=== PATIENT | female | born 1965 | race Caucasian/White ===

== ENCOUNTER 2017-08-03 11:34 | Inpatient (IN) | payer BC, OTHER ==
--- NOTE | 2017-08-03 11:55 | EDM.PDOC ---
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 She contacted her oncologist who expressed some concern about her heart being on the biologic. Review of Systems: As per history of present illness and below otherwise all systems reviewed and negative. Past medical history: As per history of present illness and as reviewed below otherwise noncontributory. Surgical history: As per history of present illness and as reviewed below otherwise noncontributory. Social history: No reported history of drug or alcohol abuse. Family history: As per history of present illness and as reviewed below otherwise noncontributory. Physical exam: Alert and oriented female speaking in full sentences although she is quite hoarse. HEENT: Atraumatic, normocehpalic, pupils reactive, negative for conjunctival pallor or scleral icterus, mucous membranes moist, throat clear, neck supple, nontender, trachea midline. Nonproductive cough Lungs: Clear to auscultation, breath sounds equal bilaterally, chest non tender. Shallow breath sounds Heart: S1S2, regular, negative for clicks, rubs, or JVD. Abdomen: Soft, nondistended, nontender. Negative for masses or hepatossplenmegaly. Negative for costovertebral tenderness. Pelvis: Stable nontender. 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: Deferred. Rectal: Deferred Extremities: Atraumatic, negative for cords or calf pain. Neurovascular unremarkable. Neuro: Awake, alert, oriented. Cranial nerves II through XII unremarkable. Cerebellum unremarkable. Motor and sensory unremarkable throughout. Exam nonfocal. Patient's oncologist has been notified of patient admission. Diagnostics: [CBC CMP d-dimer and EKG chest x-ray] Therapeutics: [] Impression: [#1 pneumonia] Plan: [Admit as inpatient on telemetry] Definitive disposition and diagnosis as appropriate pending reevaluation and review of above. Onset: Gradual Duration: Day(s): (3) Location: Reports: Chest Severity: Moderate Improves with: Reports: None Worsens with: Reports: None Associated Symptoms: Reports: Cough, Fever/Chills - Related Data Allergies Allergy/AdvReac Type Severity Reaction Status Date / Time hydrocodone Allergy Itching Verified 08/03/17 11:55 Home Meds: Home Meds buPROPion HCl [Wellbutrin Xl] 1 tab PO DAILY 12/28/15 [History] lamoTRIgine 1 tab PO DAILY 12/28/15 [History] Past Medical History HEENT History: Reports: Allergic Rhinitis Other HEENT History: wears glasses Cardiovascular History: Reports: None Respiratory History: Reports: None, Other (See Below) Gastrointestinal History: Reports: None 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: Reports: None 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: Musculoskeletal History: Reports: Fracture Other Musculoskeletal History: hx of fx right foot and ankle Neurological History: Reports: Other (See Below) Psychiatric History: Reports: Depression Endocrine/Metabolic History: Reports: None Hematologic History: Reports: None Immunologic History: Reports: None Oncologic (Cancer) History: Reports: Malignant Melanoma Other Oncologic History: on face, no treatment after removal Dermatologic History: Reports: None - Past Surgical History GI Surgical History: Reports: Hernia, Abdominal Musculoskeletal Surgical History: Reports: ORIF, Other (See Below) Social & Family History - Family History Family Medical History: Noncontributory - Tobacco Use Smoking Status *Q: Current Every Day Smoker (minimal smoking at present time (3- 4 cigarettes per day)) Years of Tobacco use: 40 Packs/Tins Daily: 0.5 Second Hand Smoke Exposure: No - Caffeine Use Caffeine Use: Reports: Coffee Other Caffeine Use: 3 cups per day - Recreational Drug Use Recreational Drug Use: No Drug Use in Last 12 Months: No ED ROS ENT - Review of Systems Review Of Systems: ROS reveals no pertinent complaints other than HPI. ED EXAM, ENT - Physical Exam Exam: See Below (see dictation) EKG INTERPRETATION EKG Date: 08/03/17 Rhythm: NSR Comparison: NA - No Prior EKG Course - Vital Signs Last Recorded V/S: Last Vital Signs Temp 37.1 C 08/03/17 14:26 Pulse 108 H 08/03/17 14:26 Resp 20 08/03/17 14:26 BP 115/71 08/03/17 14:26 Pulse Ox 99 08/03/17 14:26 - Orders/Labs/Meds Orders: Active Orders 24 hr Category Date Time Status EKG Documentation Completion [RC] STAT Care 08/03/17 11:56 Active RT Aerosol Therapy [RC] ASDIRECTED Care 08/03/17 12:51 Active Ang Chest [CT] Stat Exams 08/03/17 13:04 Taken Chest 2V [CR] Stat Exams 08/03/17 11:57 Taken CULTURE BLOOD [BC] Stat Lab 08/03/17 13:31 Received CULTURE BLOOD [BC] Stat Lab 08/03/17 13:41 Results cefTRIAXone [Rocephin in Dextrose,Iso-Osm 2 GM/50 ML] 2 Med 08/03/17 14:17 Active gm Premix Bag 1 bag IV ONETIME Blood Culture x2 Reflex Set [OM.PC] Stat Oth 08/03/17 13:05 Ordered Medication Orders Ceftriaxone Sodium/Dextrose 2 (gm/ Premix) 50 mls @ 100 mls/hr IV ONETIME ONE Stop: 08/03/17 14:46 Labs: Laboratory Tests 08/03/17 08/03/17 08/03/17 Range/Units 12:08 12:08 12:08 WBC 16.87 H (4.0-11.0) K/uL RBC 4.59 (4.30-5.90) M/uL Hgb 13.1 (12.0-16.0) g/dL Hct 38.8 (36.0-46.0) % MCV 84.5 (80.0-98.0) fL MCH 28.5 (27.0-32.0) pg MCHC 33.8 (31.0-37.0) g/dL RDW Std Deviation 44.7 (28.0-62.0) fl RDW Coeff of Breanna 15 (11.0-15.0) % Plt Count 260 (150-400) K/uL MPV 8.80 (7.40-12.00) fL Add Manual Diff YES Neutrophils % (Manual) 64 (48.0-80.0) % Band Neutrophils % 20 % Lymphocytes % (Manual) 7 L (16.0-40.0) % Monocytes % (Manual) 6 (0.0-15.0) % Eosinophils % (Manual) 2 (0.0-7.0) % Basophils % (Manual) 1 (0.0-1.5) % Nucleated RBC % 0.0 /100WBC Absolute Seg Neuts 10.8 H (1.4-5.7) Band Neutrophils # 3.4 Lymphocytes # (Manual) 1.2 (0.6-2.4) Monocytes # (Manual) 1.0 H (0.0-0.8) Eosinophils # (Manual) 0.3 (0.0-0.7) Basophils # (Manual) 0.2 H (0.0-0.1) Nucleated RBCs # 0 K/uL D-Dimer, Quantitative (0.0-0.52) mg/LFEU Sodium 136 (136-145) mmol/L Potassium 3.6 (3.5-5.1) mmol/L Chloride 103 (98-107) mmol/L Carbon Dioxide 22.1 (21.0-32.0) mmol/L BUN 11 (7.0-18.0) mg/dL Creatinine 0.7 (0.6-1.0) mg/dL Est Cr Clr Drug Dosing 73.51 mL/min Estimated GFR (MDRD) > 60.0 ml/min Glucose 103 (74-106) mg/dL Calcium 9.2 (8.5-10.1) mg/dL Total Bilirubin 0.2 (0.2-1.0) mg/dL AST 19 (15-37) IU/L ALT 42 (14-63) IU/L Alkaline Phosphatase 98 (46-116) U/L Troponin I < 0.050 (0.000-0.056) ng/mL B-Natriuretic Peptide < 15 (<100) PG/ML Total Protein 7.7 (6.4-8.2) g/dL Albumin 3.5 (3.4-5.0) g/dL Globulin 4.2 H (2.0-3.5) g/dL Albumin/Globulin Ratio 0.8 L (1.3-2.8) 08/03/17 Range/Units 12:08 WBC (4.0-11.0) K/uL RBC (4.30-5.90) M/uL Hgb (12.0-16.0) g/dL Hct (36.0-46.0) % MCV (80.0-98.0) fL MCH (27.0-32.0) pg MCHC (31.0-37.0) g/dL RDW Std Deviation (28.0-62.0) fl RDW Coeff of Breanna (11.0-15.0) % Plt Count (150-400) K/uL MPV (7.40-12.00) fL Add Manual Diff Neutrophils % (Manual) (48.0-80.0) % Band Neutrophils % % Lymphocytes % (Manual) (16.0-40.0) % Monocytes % (Manual) (0.0-15.0) % Eosinophils % (Manual) (0.0-7.0) % Basophils % (Manual) (0.0-1.5) % Nucleated RBC % /100WBC Absolute Seg Neuts (1.4-5.7) Band Neutrophils # Lymphocytes # (Manual) (0.6-2.4) Monocytes # (Manual) (0.0-0.8) Eosinophils # (Manual) (0.0-0.7) Basophils # (Manual) (0.0-0.1) Nucleated RBCs # K/uL D-Dimer, Quantitative 0.78 H (0.0-0.52) mg/LFEU Sodium (136-145) mmol/L Potassium (3.5-5.1) mmol/L Chloride (98-107) mmol/L Carbon Dioxide (21.0-32.0) mmol/L BUN (7.0-18.0) mg/dL Creatinine (0.6-1.0) mg/dL Est Cr Clr Drug Dosing mL/min Estimated GFR (MDRD) ml/min Glucose (74-106) mg/dL Calcium (8.5-10.1) mg/dL Total Bilirubin (0.2-1.0) mg/dL AST (15-37) IU/L ALT (14-63) IU/L Alkaline Phosphatase (46-116) U/L Troponin I (0.000-0.056) ng/mL B-Natriuretic Peptide (<100) PG/ML Total Protein (6.4-8.2) g/dL Albumin (3.4-5.0) g/dL Globulin (2.0-3.5) g/dL Albumin/Globulin Ratio (1.3-2.8) Meds: Medications Generic Name Dose Route Start Last Admin Trade Name Freq PRN Reason Stop Dose Admin Ceftriaxone Sodium/Dextrose 2 50 mls @ 100 mls/hr 08/03/17 14:17 gm/ Premix IV 08/03/17 14:46 ONETIME ONE Discontinued Medications Generic Name Dose Route Start Last Admin Trade Name Freq PRN Reason Stop Dose Admin Albuterol/Ipratropium 3 ml 08/03/17 12:51 08/03/17 14:07 Duoneb 3.0-0.5 Mg/3 Ml NEB 08/03/17 12:52 3 ml ONETIME ONE Administration Azithromycin 500 mg 08/03/17 14:18 Zithromax PO 08/03/17 14:19 ONETIME ONE Iopamidol 50 ml 08/03/17 14:10 08/03/17 14:10 Isovue-370 (76%) IV 08/03/17 14:11 50 ml ONETIME ONE Administration Departure - Departure Time of Disposition: 15:00 Disposition: Home, Self-Care 01 Condition: Good Clinical Impression: Pneumonia Qualifiers: Pneumonia type: due to unspecified organism Laterality: unspecified laterality Lung location: lower lobe of lung Qualified Code(s): J18.1 - Lobar pneumonia, unspecified organism - Discharge Information Referrals: Annie Qureshi, [employer]OCIATE [Primary Care Provider] - - My Orders Last 24 Hours: My Active Orders 08/03/17 11:56 EKG Documentation Completion [RC] STAT 08/03/17 11:57 Chest 2V [CR] Stat 08/03/17 12:51 RT Aerosol Therapy [RC] ASDIRECTED 08/03/17 13:04 Ang Chest [CT] Stat 08/03/17 13:05 Blood Culture x2 Reflex Set [OM.PC] Stat 08/03/17 13:31 CULTURE BLOOD [BC] Stat 08/03/17 13:41 CULTURE BLOOD [BC] Stat 08/03/17 14:17 cefTRIAXone [Rocephin in Dextrose,Iso-Osm 2 GM/50 ML] 2 gm Premix Bag 1 bag IV ONETIME - Assessment/Plan Last 24 Hours: My Active Orders 08/03/17 11:56 EKG Documentation Completion [RC] STAT 08/03/17 11:57 Chest 2V [CR] Stat 08/03/17 12:51 RT Aerosol Therapy [RC] ASDIRECTED 08/03/17 13:04 Ang Chest [CT] Stat 08/03/17 13:05 Blood Culture x2 Reflex Set [OM.PC] Stat 08/03/17 13:31 CULTURE BLOOD [BC] Stat 08/03/17 13:41 CULTURE BLOOD [BC] Stat 08/03/17 14:17 cefTRIAXone [Rocephin in Dextrose,Iso-Osm 2 GM/50 ML] 2 gm Premix Bag 1 bag IV ONETIME
[2017-08-03 12:48] LABS: CHLORIDE,CL 103 mmol/L (98-107); SODIUM,NA 136 mmol/L (136-145)
[2017-08-03] MEDS ORDERED: Albuterol/Ipratropium 3.0-0.5 MG/3 ML Neb Soln NEB ONE (12:51)
[2017-08-03] MEDS ORDERED: Iopamidol 755 MG/ML 50 ML Bottle IV ONE (14:10)
[2017-08-03] MEDS ORDERED: cefTRIAXone 2 GM in Premix Bag 1 BAG IV ONE (14:17)
[2017-08-03] MEDS ORDERED: Azithromycin 250 MG Tab PO ONE (14:18)
--- NOTE | 2017-08-03 15:02 | PCM.HP ---
H&P History of Present Illness - General Date of Service: 08/03/17 Admit Problem/Dx: Admission Diagnosis/Problem Admission Diagnosis/Problem Pneumonia Source of Information: Patient, Family History Limitations: Reports: No Limitations - History of Present Illness Initial Comments - Free Text/Narative: 52-year-old female presenting to emergency department with a chief complaint of sore throat and generalized weak starting 07/31/17 with past medical history of breast cancer on TCHP and Neulasta and depression. Patient states that on Saturday07/31/17 she began having sore throat and generalized fatigue. States that she went to bed and has been only up since to go to the bathroom. She does live alone but has a son in town that checks on her. She has had associated chills, fever, and diaphoresis. She states that her maximum temperature was 100. Yesterday she did call her oncologist Desiree Tobias, who advised her to go to a walk-in clinic for further assessment. Patient states the walk-in clinic was closed and so came into the emergency department today for further evaluation. She also reports a dry cough and intermittent diarrhea. She denies any nausea, vomiting, headache, chest pain , palpitations, shortness of breath, dysuria, leg pain, syncopal episodes, or focal neurologic deficits. Patient was diagnosed with breast cancer of the right breast on April 26, 2017. She had a lumpectomy in May of 2017 and states that she received her first chemotherapy, TCHP, 07/22/17. She also reports that she was given Neulasta after the chemotherapy. In general she has been feeling well up until this last Saturday when her symptoms began. Emergency department: Leukocytosis of 16.8 K, elevated d-dimer 0.78 with negative CTA for PE, findings of multifocal pneumonia on CT as well as left lower lobe pneumonia on chest x-ray. Troponin and BNP unremarkable. Blood cultures and sputum cultures were obtained. She was given 1 DuoNeb and started on Rocephin and azithromycin in the emergency department. Patient admitted community acquired pneumonia. - Related Data Allergies/Adverse Reactions: Allergies Allergy/AdvReac Type Severity Reaction Status Date / Time hydrocodone Allergy Itching Verified 08/03/17 11:55 Home Medications: Home Meds HYDROmorphone [Dilaudid] 2 mg PO Q4H PRN 08/03/17 [History] PARoxetine HCl [Paxil] 10 mg PO DAILY 08/03/17 [History] buPROPion [buPROPion XL] 300 mg PO DAILY 08/03/17 [History] busPIRone HCl [Buspirone HCl] 5 mg PO DAILY 08/03/17 [History] lamoTRIgine [Lamotrigine] 100 mg PO DAILY 08/03/17 [History] Past Medical History HEENT History: Reports: Allergic Rhinitis Other HEENT History: wears glasses Cardiovascular History: Reports: None Respiratory History: Reports: None, Other (See Below) Gastrointestinal History: Reports: None 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: Reports: 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: Musculoskeletal History: Reports: Fracture Other Musculoskeletal History: hx of fx right foot and ankle Neurological History: Reports: Other (See Below) Psychiatric History: Reports: Depression Endocrine/Metabolic History: Reports: None Hematologic History: Reports: None Immunologic History: Reports: None Oncologic (Cancer) History: Reports: Malignant Melanoma Other Oncologic History: on face, no treatment after removal Dermatologic History: Reports: None - Past Surgical History GI Surgical History: Reports: Hernia, Abdominal Musculoskeletal Surgical History: Reports: ORIF, Other (See Below) Social & Family History - Family History Family Medical History: Noncontributory - Tobacco Use Smoking Status *Q: Current Every Day Smoker (minimal smoking at present time (3- 4 cigarettes per day)) Years of Tobacco use: 40 Packs/Tins Daily: 0.5 Second Hand Smoke Exposure: No - Caffeine Use Caffeine Use: Reports: Coffee Other Caffeine Use: 3 cups per day - Recreational Drug Use Recreational Drug Use: No Drug Use in Last 12 Months: No H&P Review of Systems - Review of Systems: Review Of Systems: See Below General: Reports: Fever, Chills, Weakness, Fatigue, Diaphoresis HEENT: Reports: Sinus Congestion, Sore Throat. Denies: Dysphasia, Headaches Cardiovascular: Denies: Chest Pain, Palpitations, Edema Gastrointestinal: Reports: Diarrhea. Denies: Abdominal Pain, Black Stool, Bloody Stool, Nausea, Vomiting 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: Denies: Dysuria, Hematuria Musculoskeletal: Denies: Neck Pain, Leg Pain Skin: Denies: Cyanosis Psychiatric: Reports: Depression. Denies: Confusion Neurological: Denies: Confusion, Dizziness, Headache Hematologic/Lymphatic: Denies: Anemia Immunologic: Denies: Anaphylaxis Exam - Exam Exam: See Below - Vital Signs Vital Signs: Last Vital Signs Temp 98.7 F 08/03/17 14:26 Pulse 96 08/03/17 14:55 Resp 20 08/03/17 14:55 BP 138/62 08/03/17 14:55 Pulse Ox 95 08/03/17 14:55 Weight: 89.4 kg - Exam Quality Assessment: DVT Prophylaxis General: Alert, Oriented, Cooperative HEENT: Conjunctiva Clear, EACs Clear, EOMI, Hearing Intact, Mucosa Moist & [place] , Nares Patent, Normal Nasal Septum, Posterior Pharynx Clear, PERRLA Neck: Supple, Trachea Midline, 2 Lungs: Normal Respiratory Effort, Crackles, Rales, Wheezing Cardiovascular: Regular Rate, Regular Rhythm, Normal S1, Systolic Murmur GI/Abdominal Exam: Normal Bowel Sounds, Soft, Non-Tender, No Organomegaly, No Distention (Female) Exam: Deferred Rectal (Female) Exam: Deferred Back Exam: Normal Inspection Extremities: Normal Inspection, Non-Tender, No Pedal Edema, Normal Capillary Refill Peripheral Pulses: 2+: Radial (L), Radial (R), Posterior Tibial (L), Posterior Tibial (R), Dorsalis Pedis (L), Dorsalis Pedis (R) Skin: Warm, Dry, Intact Neurological: Cranial Nerves Intact Neuro Extensive - Mental Status: Alert, Oriented x3, Normal Mood/Affect, Normal Cognition Neuro Extensive - Motor, Sensory, Reflexes: CN II-XII Intact Psychiatric: Alert, Normal Affect, Normal Mood - Patient Data Lab Results Last 24 hrs: Laboratory Results - last 24 hr 08/03/17 08/03/17 08/03/17 Range/Units 12:08 12:08 12:08 WBC 16.87 H (4.0-11.0) K/uL RBC 4.59 (4.30-5.90) M/uL Hgb 13.1 (12.0-16.0) g/dL Hct 38.8 (36.0-46.0) % MCV 84.5 (80.0-98.0) fL MCH 28.5 (27.0-32.0) pg MCHC 33.8 (31.0-37.0) g/dL RDW Std Deviation 44.7 (28.0-62.0) fl RDW Coeff of Breanna 15 (11.0-15.0) % Plt Count 260 (150-400) K/uL MPV 8.80 (7.40-12.00) fL Add Manual Diff YES Neutrophils % (Manual) 64 (48.0-80.0) % Band Neutrophils % 20 % Lymphocytes % (Manual) 7 L (16.0-40.0) % Monocytes % (Manual) 6 (0.0-15.0) % Eosinophils % (Manual) 2 (0.0-7.0) % Basophils % (Manual) 1 (0.0-1.5) % Nucleated RBC % 0.0 /100WBC Absolute Seg Neuts 10.8 H (1.4-5.7) Band Neutrophils # 3.4 Lymphocytes # (Manual) 1.2 (0.6-2.4) Monocytes # (Manual) 1.0 H (0.0-0.8) Eosinophils # (Manual) 0.3 (0.0-0.7) Basophils # (Manual) 0.2 H (0.0-0.1) Nucleated RBCs # 0 K/uL D-Dimer, Quantitative (0.0-0.52) mg/LFEU Sodium 136 (136-145) mmol/L Potassium 3.6 (3.5-5.1) mmol/L Chloride 103 (98-107) mmol/L Carbon Dioxide 22.1 (21.0-32.0) mmol/L BUN 11 (7.0-18.0) mg/dL Creatinine 0.7 (0.6-1.0) mg/dL Est Cr Clr Drug Dosing 73.51 mL/min Estimated GFR (MDRD) > 60.0 ml/min Glucose 103 (74-106) mg/dL Calcium 9.2 (8.5-10.1) mg/dL Total Bilirubin 0.2 (0.2-1.0) mg/dL AST 19 (15-37) IU/L ALT 42 (14-63) IU/L Alkaline Phosphatase 98 (46-116) U/L Troponin I < 0.050 (0.000-0.056) ng/mL B-Natriuretic Peptide < 15 (<100) PG/ML Total Protein 7.7 (6.4-8.2) g/dL Albumin 3.5 (3.4-5.0) g/dL Globulin 4.2 H (2.0-3.5) g/dL Albumin/Globulin Ratio 0.8 L (1.3-2.8) 08/03/17 Range/Units 12:08 WBC (4.0-11.0) K/uL RBC (4.30-5.90) M/uL Hgb (12.0-16.0) g/dL Hct (36.0-46.0) % MCV (80.0-98.0) fL MCH (27.0-32.0) pg MCHC (31.0-37.0) g/dL RDW Std Deviation (28.0-62.0) fl RDW Coeff of Breanna (11.0-15.0) % Plt Count (150-400) K/uL MPV (7.40-12.00) fL Add Manual Diff Neutrophils % (Manual) (48.0-80.0) % Band Neutrophils % % Lymphocytes % (Manual) (16.0-40.0) % Monocytes % (Manual) (0.0-15.0) % Eosinophils % (Manual) (0.0-7.0) % Basophils % (Manual) (0.0-1.5) % Nucleated RBC % /100WBC Absolute Seg Neuts (1.4-5.7) Band Neutrophils # Lymphocytes # (Manual) (0.6-2.4) Monocytes # (Manual) (0.0-0.8) Eosinophils # (Manual) (0.0-0.7) Basophils # (Manual) (0.0-0.1) Nucleated RBCs # K/uL D-Dimer, Quantitative 0.78 H (0.0-0.52) mg/LFEU Sodium (136-145) mmol/L Potassium (3.5-5.1) mmol/L Chloride (98-107) mmol/L Carbon Dioxide (21.0-32.0) mmol/L BUN (7.0-18.0) mg/dL Creatinine (0.6-1.0) mg/dL Est Cr Clr Drug Dosing mL/min Estimated GFR (MDRD) ml/min Glucose (74-106) mg/dL Calcium (8.5-10.1) mg/dL Total Bilirubin (0.2-1.0) mg/dL AST (15-37) IU/L ALT (14-63) IU/L Alkaline Phosphatase (46-116) U/L Troponin I (0.000-0.056) ng/mL B-Natriuretic Peptide (<100) PG/ML Total Protein (6.4-8.2) g/dL Albumin (3.4-5.0) g/dL Globulin (2.0-3.5) g/dL Albumin/Globulin Ratio (1.3-2.8) Result Diagrams: 08/03/17 12:08 08/03/17 12:08 [place] Results Last 24 hrs: Microbiology 08/03/17 13:41 Anaerobic Blood Culture - Final Blood - Venous *Q Meaningful Use (ADM) - VTE *Q VTE Criteria *Q: - Stroke *Q Stroke Criteria *Q: - AMI *Q AMI Criteria *Q: - Problem List (1) Community acquired bacterial pneumonia SNOMED Code(s): 976172926 ICD Code: J15.9 - UNSPECIFIED BACTERIAL PNEUMONIA Status: Acute Priority : High Current Visit: Yes (2) Depression SNOMED Code(s): 60664560 ICD Code: F32.9 - MAJOR DEPRESSIVE DISORDER, SINGLE EPISODE, UNSPECIFIED Status: Chronic Priority: Low Current Visit: Yes Qualifiers: Depression Type: unspecified Qualified Code(s): F32.9 - Major depressive disorder, single episode, unspecified (3) Breast cancer, right breast SNOMED Code(s): 236869383 ICD Code: C50.911 - MALIGNANT NEOPLASM OF UNSP SITE OF RIGHT FEMALE BREAST Status: Chronic Priority: Medium Current Visit: Yes Qualifiers: Breast location: unspecified site of breast Estrogen receptor status: positive Patient sex: female Qualified Code(s): C50.911 - Malignant neoplasm of unspecified site of right female breast; Z17.0 - Estrogen receptor positive status [ER+]; Z17.0 - Estrogen receptor positive status [ER+] (4) History of chemotherapy SNOMED Code(s): 581942099 ICD Code: Z92.21 - PERSONAL HISTORY OF ANTINEOPLASTIC CHEMOTHERAPY Status: Acute Priority: High Current Visit: Yes Problem List Initiated/Reviewed/Updated: Yes Orders Last 24hrs: Active Orders 24 hr Category Date Time Status Patient Status [ADT] Stat ADT 08/03/17 14:43 Active EKG Documentation Completion [RC] STAT Care 08/03/17 11:56 Active RT Aerosol Therapy [RC] ASDIRECTED Care 08/03/17 12:51 Active Telemetry Monitoring [Cardiac Monitoring] [RC] . Care 08/03/17 14:59 Active DIRECTED Ang Chest [CT] Stat Exams 08/03/17 13:04 Taken Chest 2V [CR] Stat Exams 08/03/17 11:57 Taken CULTURE BLOOD [BC] Stat Lab 08/03/17 13:31 Received CULTURE BLOOD [BC] Stat Lab 08/03/17 13:41 Results CULTURE SPUTUM + SMEAR [RM] Stat Lab 08/03/17 14:43 Ordered Blood Culture x2 Reflex Set [OM.PC] Stat Oth 08/03/17 13:05 Ordered Assessment/Plan Comment:: 52-year-old female admitted 08/03/17 for multifocal community acquired pneumonia with past medical history of breast cancer s/p lumpectomy on TCHP and Neulasta and depression. Community acquired pneumonia: Blood cultures and sputum cultures have been obtained. Patient will be continued on azithromycin and Rocephin. Will watch labs closely and monitor. Have also ordered duo nebs as patient appeared to be somewhat wheezy on exam. Bedside inspirometry. Breast cancer: On TCHP and Neulasta. Her first chemotherapy was 2 weeks ago 07/22. Will monitor closely and keep her oncologist Dr. Oneal in [place] advised of her status. She does have an appointment on Saturday but oncologist already knows that she is going to be hospitalized and is okay with her rescheduling. Depression: Currently stable continue home medications. VTE: Heparin, SCD Dispo: 2-4 days pending.
[2017-08-03] MEDS ORDERED: Albuterol/Ipratropium 3.0-0.5 MG/3 ML Neb Soln NEB PRN (16:10)
[2017-08-03] MEDS ORDERED: Ondansetron 4 MG Tab.DIS PO PRN (16:10)
[2017-08-03] MEDS ORDERED: Ondansetron 4 MG/2 ML SDV IVPUSH PRN (16:10)
[2017-08-03] MEDS ORDERED: Sodium Chloride 0.9% 1,000 ML IV SCH (16:15)
[2017-08-03] MEDS ORDERED: HYDROmorphone 2 MG Tab PO PRN (16:18)
[2017-08-03] MEDS: Heparin Sodium 5,000 Units/ML Vial SUBCUT SCH (16:39)
[2017-08-03] MEDS: Acetaminophen 325 MG Tab PO PRN (16:49)
[2017-08-03] MEDS ORDERED: Loperamide 2 MG Cap PO PRN (20:57)
[2017-08-03] MEDS: Morphine 2 MG/ML Syringe IVPUSH PRN (21:37)
[2017-08-04] MEDS: Lactated Ringers 1,000 ML IV SCH ×3 (00:52→23:29)
[2017-08-04] MEDS: Heparin Sodium 5,000 Units/ML Vial SUBCUT SCH ×2 (04:09→17:31)
[2017-08-04] MEDS: Acetaminophen 325 MG Tab PO PRN ×2 (04:09→14:32)
[2017-08-04 06:48] LABS: CHLORIDE,CL 103 mmol/L (98-107); SODIUM,NA 138 mmol/L (136-145)
--- NOTE | 2017-08-04 08:11 | PCM.PN ---
- General Info Date of Service: 08/04/17 Admission Dx/Problem (Free Text): Admission Diagnosis/Problem Admission Diagnosis/Problem Pneumonia Subjective Update: Feeling better other than a headache that started at around 3 am. No n/v, sob, chest pain, palpitations, fever or chills. Functional Status: Reports: Pain Controlled, Tolerating Diet, Ambulating, Urinating - Review of Systems General: Reports: Fatigue. Denies: Fever, Weakness, Malaise HEENT: Reports: Headaches. Denies: Dysphasia, Visual Changes Pulmonary: Reports: Cough. Denies: Shortness of Breath, Sputum, Hemoptysis Cardiovascular: Denies: Chest Pain, Palpitations, Edema Gastrointestinal: Denies: Abdominal Pain, Diarrhea, Nausea, Vomiting 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: Denies: Dysuria, Hematuria Musculoskeletal: Denies: Neck Pain, Leg Pain Skin: Denies: Cyanosis Neurological: Reports: Headache. Denies: Confusion, Dizziness Psychiatric: Denies: Confusion - Patient Data Vitals - Most Recent: Last Vital Signs Temp 98.3 F 08/04/17 04:35 Pulse 90 08/04/17 04:35 Resp 18 08/04/17 04:35 BP 146/67 H 08/04/17 04:35 Pulse Ox 94 L 08/04/17 04:35 Weight - Most Recent: 89.4 kg I&O - Last 24 Hours: Intake & Output 08/03/17 08/04/17 08/04/17 21:59 06:59 14:59 Intake Total Output Total Balance Lab Results Last 24 Hours: Laboratory Results - last 24 hr 08/04/17 08/04/17 Range/Units 06:10 06:10 WBC 13.33 H (4.0-11.0) K/uL RBC 4.06 L (4.30-5.90) M/uL Hgb 11.4 L (12.0-16.0) g/dL Hct 34.5 L (36.0-46.0) % MCV 85.0 (80.0-98.0) fL MCH 28.1 (27.0-32.0) pg MCHC 33.0 (31.0-37.0) g/dL RDW Std Deviation 44.8 (28.0-62.0) fl RDW Coeff of Breanna 14 (11.0-15.0) % Plt Count 249 (150-400) K/uL MPV 8.80 (7.40-12.00) fL Add Manual Diff YES Neutrophils % (Manual) 79 (48.0-80.0) % Band Neutrophils % 6 % Lymphocytes % (Manual) 10 L (16.0-40.0) % Monocytes % (Manual) 5 (0.0-15.0) % Nucleated RBC % 0.0 /100WBC Absolute Seg Neuts 10.5 H (1.4-5.7) Band Neutrophils # 0.8 Lymphocytes # (Manual) 1.3 (0.6-2.4) Monocytes # (Manual) 0.7 (0.0-0.8) Nucleated RBCs # 0 K/uL Sodium 138 (136-145) mmol/L Potassium 3.6 (3.5-5.1) mmol/L Chloride 103 (98-107) mmol/L Carbon Dioxide 23.2 (21.0-32.0) mmol/L BUN 13 (7.0-18.0) mg/dL Creatinine 0.6 (0.6-1.0) mg/dL Est Cr Clr Drug Dosing 85.76 mL/min Estimated GFR (MDRD) > 60.0 ml/min Glucose 106 (74-106) mg/dL Calcium 8.5 (8.5-10.1) mg/dL Phosphorus 3.8 (2.6-4.7) mg/dL Magnesium 1.5 (1.5-2.0) mg/dL Med Orders - Current: Current Medications Acetaminophen (Tylenol) 650 mg PO Q4H PRN PRN Reason: Pain (Mild 1-3)/fever Last Admin: 08/04/17 04:09 Dose: 650 mg Albuterol/Ipratropium (Duoneb 3.0-0.5 Mg/3 Ml) 3 ml NEB Q6HRRT PRN PRN Reason: Shortness Of Breath/wheezing Bupropion HCl (Wellbutrin Xl) 300 mg PO DAILY [facility] Heparin Sodium (Porcine) (Heparin Sodium) 5,000 units SUBCUT Q12H [facility] Last Admin: 08/04/17 04:09 Dose: 5,000 units Hydromorphone HCl (Dilaudid) 2 mg PO Q4H PRN PRN Reason: Pain Last Admin: 08/04/17 04:18 Dose: 2 mg Sodium Chloride (Normal Saline) 1,000 mls @ 125 mls/hr IV ASDIRECTED [facility] Last Admin: 08/03/17 16:43 Dose: 125 mls/hr Azithromycin 500 mg/ Sodium (Chloride) 250 mls @ 250 mls/hr IV Q24H [facility] Ceftriaxone Sodium/Dextrose 1 (gm/ Premix) 50 mls @ 100 mls/hr IV Q24H [facility] Lactated Ringer's (Ringers, Lactated) 1,000 mls @ 125 mls/hr IV ASDIRECTED [facility] Last Admin: 08/04/17 00:52 Dose: 125 mls/hr Lamotrigine (Lamotrigine) 100 mg PO DAILY [facility] Loperamide HCl (Imodium) 2 mg PO Q4H PRN PRN Reason: Diarrhea Last Admin: 08/03/17 21:37 Dose: 2 mg Morphine Sulfate (Morphine) 2 mg IVPUSH Q2H PRN PRN Reason: Pain (severe 7-10) Stop: 08/04/17 16:12 Last Admin: 08/03/17 21:37 Dose: 2 mg Ondansetron HCl (Zofran Odt) 4 mg PO Q4H PRN PRN Reason: nausea, able to take PO Ondansetron HCl (Zofran) 4 mg IVPUSH Q4H PRN PRN Reason: Nausea Paroxetine HCl (Paxil) 10 mg PO DAILY [facility] Discontinued Medications Albuterol/Ipratropium (Duoneb 3.0-0.5 Mg/3 Ml) 3 ml NEB ONETIME ONE Stop: 08/03/17 12:52 Last Admin: 08/03/17 14:07 Dose: 3 ml Azithromycin (Zithromax) 500 mg PO ONETIME ONE Stop: 08/03/17 14:19 Last Admin: 08/03/17 14:55 Dose: 500 mg Ceftriaxone Sodium/Dextrose 2 (gm/ Premix) 50 mls @ 100 mls/hr IV ONETIME ONE Stop: 08/03/17 14:46 Last Admin: 08/03/17 14:55 Dose: 100 mls/hr Iopamidol (Isovue-370 (76%)) 50 ml IV ONETIME ONE Stop: 08/03/17 14:11 Last Admin: 08/03/17 14:10 Dose: 50 ml - Exam Quality Assessment: DVT Prophylaxis General: Alert, Oriented, Cooperative, No Acute Distress HEENT: Pupils Equal, Pupils Reactive, EOMI, Mucous Membr. Moist/[place] Neck: Supple, Trachea Midline, No JVD Lungs: Normal Respiratory Effort, Decreased Breath Sounds, Crackles, Rales Cardiovascular: Regular Rate, Regular Rhythm, Murmurs GI/Abdominal Exam: Normal Bowel Sounds, Soft, Non-Tender, No Organomegaly, No Distention (Female) Exam: Deferred Back Exam: Normal Inspection Extremities: Normal Inspection, Non-Tender, No Pedal Edema, Normal Capillary Refill Peripheral Pulses: 2+: Radial (L), Radial (R), Posterior Tibial (L), Posterior Tibial (R), Dorsalis Pedis (L), Dorsalis Pedis (R) Skin: Warm, Dry, Intact Neurological: No New Focal Deficit Psy/Mental Status: Alert, Normal Affect, Normal Mood - Problem List & Annotations (1) Community acquired bacterial pneumonia SNOMED Code(s): 019247460 Code(s): J15.9 - UNSPECIFIED BACTERIAL PNEUMONIA Status: Acute Priority: High Current Visit: Yes (2) Depression SNOMED Code(s): 61504809 Code(s): F32.9 - MAJOR DEPRESSIVE DISORDER, SINGLE EPISODE, UNSPECIFIED Status: Chronic Priority: Low Current Visit: Yes Qualifiers: Depression Type: unspecified Qualified Code(s): F32.9 - Major depressive disorder, single episode, unspecified (3) Breast cancer, right breast SNOMED Code(s): 665187481 Code(s): C50.911 - MALIGNANT NEOPLASM OF UNSP SITE OF RIGHT FEMALE BREAST Status: Chronic Priority: Medium Current Visit: Yes Qualifiers: Breast location: unspecified site of breast Estrogen receptor status: positive Patient sex: female Qualified Code(s): C50.911 - Malignant neoplasm of unspecified site of right female breast; Z17.0 - Estrogen receptor positive status [ER+]; Z17.0 - Estrogen receptor positive status [ER+] (4) History of chemotherapy SNOMED Code(s): 244817402 Code(s): Z92.21 - PERSONAL HISTORY OF ANTINEOPLASTIC CHEMOTHERAPY Status: Acute Priority: High Current Visit: Yes - Problem List Review Problem List Initiated/Reviewed/Updated: Yes - My Orders Last 24 Hours: My Active Orders 08/03/17 16:10 Patient Status [ADT] Routine Up With Assistance [RC] ASDIRECTED VTE/DVT Education [RC] PER UNIT ROUTINE Vital Signs [RC] Q4H Acetaminophen [Tylenol] 650 mg PO Q4H PRN Albuterol/Ipratropium [DuoNeb 3.0-0.5 MG/3 ML] 3 ml NEB Q6HRRT PRN Morphine 2 mg IVPUSH Q2H PRN Ondansetron [Zofran ODT] 4 mg PO Q4H PRN Ondansetron [Zofran] 4 mg IVPUSH Q4H PRN Resuscitation Status Routine 08/03/17 16:11 Antiembolic Devices [RC] PER UNIT ROUTINE Sequential Compression Device [OM.PC] Per Unit Routine 08/03/17 16:13 RT Aerosol Therapy [RC] ASDIRECTED 08/03/17 16:15 Heparin Sodium 5,000 units SUBCUT Q12H Sodium Chloride 0.9% [Normal Saline] 1,000 ml IV ASDIRECTED 08/03/17 16:18 HYDROmorphone [Dilaudid] 2 mg PO Q4H PRN 08/03/17 17:15 Lactated Ringers [Ringers, Lactated] 1,000 ml IV ASDIRECTED 08/03/17 20:57 Loperamide [Imodium] 2 mg PO Q4H PRN 08/03/17 Dinner Regular Diet [DIET] 08/04/17 09:00 PARoxetine [Paxil] 10 mg PO DAILY buPROPion [Wellbutrin XL] 300 mg PO DAILY lamoTRIgine 100 mg PO DAILY 08/04/17 15:00 Azithromycin [Zithromax] 500 mg Sodium Chloride 0.9% [Normal Saline] 250 ml IV Q24H cefTRIAXone [Rocephin in Dextrose,Iso-Osm 1 GM/50 ML] 1 gm Premix Bag 1 bag IV Q24H 08/05/17 05:11 BASIC METABOLIC PANEL,BMP [CHEM] AM CBC WITH AUTO DIFF [HEME] AM 08/06/17 05:11 BASIC METABOLIC PANEL,BMP [CHEM] AM CBC WITH AUTO DIFF [HEME] AM 08/07/17 05:11 BASIC METABOLIC PANEL,BMP [CHEM] AM CBC WITH AUTO DIFF [HEME] AM - Plan Plan:: 52-year-old female admitted 08/03/17 for multifocal community acquired pneumonia with past medical history of breast cancer s/p lumpectomy on TCHP and Neulasta and depression. Community acquired pneumonia: Blood cultures pending. Anerobic bc negative. WBC improved from 16.87 to 13.33. Afebrile overnight. Cont. Azithromycin and Rocephin day 2. Cont. duo nebs as patient appeared to be somewhat wheezy on exam. Bedside inspirometry. Breast cancer: On TCHP and Neulasta. Her first chemotherapy was 2 weeks ago 07/22. Will monitor closely. Talked with her oncologist Dr. Oneal in [place] today and advised him of her status. She does have an appointment on Saturday but oncologist already knows she is in the hospital and is okay with her rescheduling. Depression: Currently stable continue home medications. VTE: Heparin, SCD Dispo: 1-2 days pending.
[2017-08-04] MEDS: buPROPion 150 MG Tab.ER PO SCH (09:20)
[2017-08-04] MEDS: lamoTRIgine 100 MG Tab PO SCH (09:20)
[2017-08-04] MEDS: Morphine 2 MG/ML Syringe IVPUSH PRN (09:25)
[2017-08-04] MEDS ORDERED: Magnesium Sulfate/Water 4 GM in Premix Bag 1 BAG IV ONE (09:55)
[2017-08-04] MEDS ORDERED: Acetaminophen/HYDROcodone 325-5 MG Tab PO PRN (09:55)
[2017-08-04] MEDS ORDERED: cefTRIAXone 1 GM in Premix Bag 1 BAG IV SCH (15:00)
[2017-08-04] MEDS ORDERED: Azithromycin 500 MG in Sodium Chloride 0.9% 250 ML IV SCH ×2 (15:00)
[2017-08-05] MEDS: Acetaminophen 325 MG Tab PO PRN (01:48)
[2017-08-05] MEDS ORDERED: Morphine 2 MG/ML Syringe IVPUSH PRN (03:10)
[2017-08-05] MEDS: Heparin Sodium 5,000 Units/ML Vial SUBCUT SCH (03:58)
[2017-08-05 06:11] LABS: CHLORIDE,CL 107 mmol/L (98-107); SODIUM,NA 140 mmol/L (136-145)
[2017-08-05] MEDS: buPROPion 150 MG Tab.ER PO SCH (08:02)
[2017-08-05] MEDS: lamoTRIgine 100 MG Tab PO SCH (08:02)
[2017-08-05 08:15] VITALS: BP 120/76
--- NOTE | 2017-08-05 11:13 | CR ---
EXAM DATE: 08/03/17 PATIENT'S AGE: 52 Patient: SANCHEZ MAZARIEGOS Facility: [place], [place] Site . Site : 1965 Study: XRay Chest [id number]/10/2018 12:46:56 PM Ordering Physician: Eliel Rousseau Final Report: HISTORY: Chest pain, shortness of breath, cough, congestion. On chemotherapy. TECHNIQUE: Two-view chest. COMPARISON: None. FINDINGS: Left-sided port with catheter tip in the low SVC. Patchy airspace opacities in the left lower lobe and lingula. No airspace consolidation on the right. No pleural effusion or pneumothorax. Cardiomediastinal silhouette is upper normal size. Fusion hardware in the lower cervical spine. Degenerative changes of the spine. IMPRESSION: Patchy airspace disease in the lower left lung, favor pneumonia. Dictated by Jovany Hidalgo MD @ Aug 03 2017 12:48PM (Electronic Signature) Report Signed by Proxy. HENRIQUE
[2017-08-05] MEDS ORDERED: Levofloxacin 250 MG Tab PO ONE (11:14)
--- NOTE | 2017-08-05 11:14 | PCM.DCSUM1 ---
Discharge Summary - Hospital Course Brief History: 52-year-old female presenting to emergency department with a chief complaint of sore throat and generalized weak starting 07/31/17 with past medical history of breast cancer on TCHP and Neulasta and depression. Patient states that on Saturday07/31/17 she began having sore throat and generalized fatigue. States that she went to bed and has been only up since to go to the bathroom. She does live alone but has a son in town that checks on her. She has had associated chills, fever, and diaphoresis. She states that her maximum temperature was 100. Yesterday she did call her oncologist Desiree Tobias, who advised her to go to a walk-in clinic for further assessment. Patient states the walk-in clinic was closed and so came into the emergency department today for further evaluation. She also reports a dry cough and intermittent diarrhea. She denies any nausea, vomiting, headache, chest pain, palpitations, shortness of breath, dysuria, leg pain, syncopal episodes, or focal neurologic deficits. Patient was diagnosed with breast cancer of the right breast on April 26, 2017. She had a lumpectomy in May of 2017 and states that she received her first chemotherapy, TCHP, 07/22/17. She also reports that she was given Neulasta after the chemotherapy. In general she has been feeling well up until this last Saturday when her symptoms began. Emergency department: Leukocytosis of 16.8 K, elevated d-dimer 0.78 with negative CTA for PE, findings of multifocal pneumonia on CT as well as left lower lobe pneumonia on chest x-ray. Troponin and BNP unremarkable. Blood cultures and sputum cultures were obtained. She was given 1 DuoNeb and started on Rocephin and azithromycin in the emergency department. Patient admitted community acquired pneumonia. - Discharge Data Discharge Date: 08/05/17 Discharge Disposition: Home, Self-Care 01 Condition: Good - Discharge Diagnosis/Problem(s) (1) Community acquired bacterial pneumonia SNOMED Code(s): 861237778 ICD Code: J15.9 - UNSPECIFIED BACTERIAL PNEUMONIA Status: Acute Priority : High Current Visit: Yes (2) History of chemotherapy SNOMED Code(s): 924575175 ICD Code: Z92.21 - PERSONAL HISTORY OF ANTINEOPLASTIC CHEMOTHERAPY Status: Acute Priority: High Current Visit: Yes (3) Breast cancer, right breast SNOMED Code(s): 630454529 ICD Code: C50.911 - MALIGNANT NEOPLASM OF UNSP SITE OF RIGHT FEMALE BREAST Status: Chronic Priority: Medium Current Visit: Yes Qualifiers: Breast location: unspecified site of breast Estrogen receptor status: positive Patient sex: female Qualified Code(s): C50.911 - Malignant neoplasm of unspecified site of right female breast; Z17.0 - Estrogen receptor positive status [ER+]; Z17.0 - Estrogen receptor positive status [ER+] - Patient Instructions Diet: Regular Diet as Tolerated Activity: As Tolerated, No Strenuous Activities, Rest and Relax Today Showering/Bathing: May Shower Notify Provider of: Fever, Increased Pain, Swelling and Redness, Drainage, Nausea and/or Vomiting - Discharge Plan Prescriptions/Med Rec: Levofloxacin [Levaquin] 750 mg PO DAILY #4 tab Home Medications: Home Meds HYDROmorphone [Dilaudid] 2 mg PO Q4H PRN 08/03/17 [History] PARoxetine HCl [Paxil] 10 mg PO DAILY 08/03/17 [History] buPROPion [buPROPion XL] 300 mg PO DAILY 08/03/17 [History] busPIRone HCl [Buspirone HCl] 5 mg PO DAILY 08/03/17 [History] lamoTRIgine [Lamotrigine] 100 mg PO DAILY 08/03/17 [History] Levofloxacin [Levaquin] 750 mg PO DAILY #4 tab 08/05/17 [Rx] Patient Handouts: Levofloxacin tablets, Community-Acquired Pneumonia, Adult, [id number] Referrals: Annie Qureshi NP [Primary Care Provider] - 08/09/17 7:30 am - Discharge Summary/Plan Comment DC Time >30 min.: No Discharge Summary/Plan Comment: Discharge Diagnoses: CAP, immunocompromised Breast ca, receiving chemotherapy Depression Melodie was admitted and treated for CAP. Sputum returned with normal respiratory ruth and BC negative. Leukocytosis resolved and she is feeling much better today. She has been afebrile. She is eating and drinking well. She is eager for discharge. Due to being immunocompromised, will give her one dose of Levaquin 750 mg today and discharge her with 4 more days of Levaquin for pneumonia. She is to follow up with PCP and Dr Oneal next week. She is to return to ED or clinic if concerns should arise. - General Info Date of Service: 08/05/17 Admission Dx/Problem (Free Text: Admission Diagnosis/Problem Admission Diagnosis/Problem Pneumonia Subjective Update: Doing well this morning. She is feeling much better and asking if it is ok she goes home. Cough is better. Still slightly congested but feeling better. No fevers and no pain. Eating well. No diarrhea. Functional Status: Reports: Pain Controlled, Tolerating Diet, Ambulating, Urinating - Review of Systems General: Reports: No Symptoms. Denies: Fever, Weakness, Fatigue HEENT: Reports: Sinus Congestion Pulmonary: Reports: No Symptoms. Denies: Shortness of Breath, Pleuritic Chest Pain, Cough, Sputum Cardiovascular: Reports: No Symptoms. Denies: Chest Pain, Dyspnea on Exertion, Edema Gastrointestinal: Reports: No Symptoms. Denies: Abdominal Pain, Nausea, Vomiting 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: Reports: No Symptoms. Denies: Dysuria, Frequency, Burning Neurological: Reports: No Symptoms. Denies: Confusion Psychiatric: Reports: No Symptoms. Denies: Confusion - Patient Data Vitals - Most Recent: Last Vital Signs Temp 97.6 F 08/05/17 08:00 Pulse 78 08/05/17 08:00 Resp 18 08/05/17 08:00 BP 120/76 08/05/17 08:00 Pulse Ox 96 08/05/17 08:00 Weight - Most Recent: 89.4 kg I&O - Last 24 hours: Intake & Output 08/04/17 08/05/17 08/05/17 22:59 06:59 14:59 Intake Total 927 550 Balance 927 550 Lab Results - Last 24 hrs: Laboratory Results - last 24 hr 08/05/17 08/05/17 Range/Units 05:28 05:28 WBC 8.34 (4.0-11.0) K/uL RBC 3.65 L (4.30-5.90) M/uL Hgb 10.3 L (12.0-16.0) g/dL Hct 31.0 L (36.0-46.0) % MCV 84.9 (80.0-98.0) fL MCH 28.2 (27.0-32.0) pg MCHC 33.2 (31.0-37.0) g/dL RDW Std Deviation 45.2 (28.0-62.0) fl RDW Coeff of Breanna 15 (11.0-15.0) % Plt Count 241 (150-400) K/uL MPV 8.80 (7.40-12.00) fL Neut % (Auto) 71.3 (48.0-80.0) % Lymph % (Auto) 18.2 (16.0-40.0) % [place] % (Auto) 8.8 (0.0-15.0) % Eos % (Auto) 1.1 (0.0-7.0) % Baso % (Auto) 0.6 (0.0-1.5) % Neut # (Auto) 6.0 H (1.4-5.7) K/uL Lymph # (Auto) 1.5 (0.6-2.4) K/uL [place] # (Auto) 0.7 (0.0-0.8) K/uL Eos # (Auto) 0.1 (0.0-0.7) K/uL Baso # (Auto) 0.1 (0.0-0.1) K/uL Nucleated RBC % 0.2 /100WBC Nucleated RBCs # 0 K/uL Sodium 140 (136-145) mmol/L Potassium 3.7 (3.5-5.1) mmol/L Chloride 107 (98-107) mmol/L Carbon Dioxide 24.2 (21.0-32.0) mmol/L BUN 10 (7.0-18.0) mg/dL Creatinine 0.5 L (0.6-1.0) mg/dL Est Cr Clr Drug Dosing 102.91 mL/min Estimated GFR (MDRD) > 60.0 ml/min Glucose 99 (74-106) mg/dL Calcium 8.0 L (8.5-10.1) mg/dL FLORA Results - Last 24 hrs: Microbiology 08/04/17 09:00 Gram Stain - Final Sputum - Expectorated Sputum Culture - Final Normal Respiratory Ruth Med Orders - Current: Current Medications Acetaminophen (Tylenol) 650 mg PO Q4H PRN PRN Reason: Pain (Mild 1-3)/fever Last Admin: 08/05/17 01:48 Dose: 650 mg Albuterol/Ipratropium (Duoneb 3.0-0.5 Mg/3 Ml) 3 ml NEB Q6HRRT PRN PRN Reason: Shortness Of Breath/wheezing Bupropion HCl (Wellbutrin Xl) 300 mg PO DAILY [facility] Last Admin: 08/05/17 08:02 Dose: 300 mg Heparin Sodium (Porcine) (Heparin Sodium) 5,000 units SUBCUT Q12H [facility] Last Admin: 08/05/17 03:58 Dose: 5,000 units Ceftriaxone Sodium/Dextrose 1 (gm/ Premix) 50 mls @ 100 mls/hr IV Q24H [facility] Last Admin: 08/04/17 14:12 Dose: 100 mls/hr Lactated Ringer's (Ringers, Lactated) 1,000 mls @ 125 mls/hr IV ASDIRECTED [facility] Last Admin: 08/04/17 23:29 Dose: 125 mls/hr Azithromycin 500 mg/ Sodium (Chloride) 250 mls @ 250 mls/hr IV Q24H [facility] Last Admin: 08/04/17 15:40 Dose: 250 mls/hr Lamotrigine (Lamotrigine) 100 mg PO DAILY [facility] Last Admin: 08/05/17 08:02 Dose: 100 mg Levofloxacin (Levaquin) 750 mg PO ONETIME ONE Stop: 08/05/17 11:15 Loperamide HCl (Imodium) 2 mg PO Q4H PRN PRN Reason: Diarrhea Last Admin: 08/03/17 21:37 Dose: 2 mg Morphine Sulfate (Morphine) 2 mg IVPUSH Q2H PRN PRN Reason: Pain (severe 7-10) Last Admin: 08/05/17 03:57 Dose: 2 mg Ondansetron HCl (Zofran Odt) 4 mg PO Q4H PRN PRN Reason: nausea, able to take PO Ondansetron HCl (Zofran) 4 mg IVPUSH Q4H PRN PRN Reason: Nausea Paroxetine HCl (Paxil) 10 mg PO DAILY [facility] Last Admin: 08/05/17 08:06 Dose: Not Given Discontinued Medications Hydrocodone Bitart/Acetaminophen ([place] 325-5 Mg) 1 tab PO Q4H PRN PRN Reason: Pain Albuterol/Ipratropium (Duoneb 3.0-0.5 Mg/3 Ml) 3 ml NEB ONETIME ONE Stop: 08/03/17 12:52 Last Admin: 08/03/17 14:07 Dose: 3 ml Azithromycin (Zithromax) 500 mg PO ONETIME ONE Stop: 08/03/17 14:19 Last Admin: 08/03/17 14:55 Dose: 500 mg Hydromorphone HCl (Dilaudid) 2 mg PO Q4H PRN PRN Reason: Pain Last Admin: 08/04/17 04:18 Dose: 2 mg Ceftriaxone Sodium/Dextrose 2 (gm/ Premix) 50 mls @ 100 mls/hr IV ONETIME ONE Stop: 08/03/17 14:46 Last Admin: 08/03/17 14:55 Dose: 100 mls/hr Sodium Chloride (Normal Saline) 1,000 mls @ 125 mls/hr IV ASDIRECTED [facility] Last Admin: 08/03/17 16:43 Dose: 125 mls/hr Azithromycin 500 mg/ Sodium (Chloride) 250 mls @ 250 mls/hr IV Q24H [facility] Magnesium Sulfate 4 gm/ Premix 100 mls @ 25 mls/hr IV ONETIME ONE Stop: 08/04/17 13:54 Last Admin: 08/04/17 10:50 Dose: 25 mls/hr Iopamidol (Isovue-370 (76%)) 50 ml IV ONETIME ONE Stop: 08/03/17 14:11 Last Admin: 08/03/17 14:10 Dose: 50 ml Morphine Sulfate (Morphine) 2 mg IVPUSH Q2H PRN PRN Reason: Pain (severe 7-10) Stop: 08/04/17 16:12 Last Admin: 08/04/17 09:25 Dose: 2 mg - Exam Quality Assessment: Reports: DVT Prophylaxis. Denies: Supplemental Oxygen General: Reports: Alert, Oriented, Cooperative, No Acute Distress HEENT: Reports: Other (sinus congestion noted.) Neck: Reports: Supple Lungs: Reports: Clear to Auscultation, Normal Respiratory Effort Cardiovascular: Reports: Regular Rate, Regular Rhythm GI/Abdominal Exam: Normal Bowel Sounds, Soft, Non-Tender, No Organomegaly, No Distention, No Abnormal Bruit, No Mass, Pelvis Stable Extremities: Normal Inspection, Normal Range of Motion, Non-Tender, No Pedal Edema, Normal Capillary Refill Neurological: Reports: No New Focal Deficit Psy/Mental Status: Reports: Alert, Normal Affect, Normal Mood *Q Meaningful Use (DIS) - VTE *Q VTE Criteria *Q: - Stroke *Q Stroke Criteria *Q: - AMI *Q AMI Criteria *Q:
--- NOTE | 2017-08-05 11:19 | CT ---
EXAM DATE: 08/03/17 PATIENT'S AGE: 52 Patient: SANCHEZ MAZARIEGOS Facility: [place], [place] Site . Site : 1965 Study: CT Chest Angio [id number]/10/2018 2:12:04 PM Ordering Physician: Eliel Rousseau Final Report: HISTORY: Chest pain. Shortness of breath. Elevated D-dimer. TECHNIQUE: CT chest with IV contrast, pulmonary embolism protocol. COMPARISON: None. FINDINGS: Pulmonary arteries: No pulmonary embolism. Main pulmonary artery is normal caliber. Lungs: Central airways are patent. Multifocal ground-glass and small nodular opacities throughout both lungs, greatest in the upper lobes, lingula, and anterior left lower lobe. Small areas of more confluent consolidation in the lingula and anterior left lower lobe. No pleural effusion or pneumothorax. Mild bilateral bronchial wall thickening. Mediastinum: Thoracic aorta is normal caliber. No pericardial effusion. Left- sided port with catheter tip in the low SVC. Lymph nodes: Left lower paratracheal and AP window lymph nodes are upper normal size. No enlarged thoracic lymph nodes by size criteria. 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 Fusion hardware in the lower cervical spine. Degenerative changes of the spine. Upper abdomen: Unremarkable. IMPRESSION: 1. No pulmonary embolism. 2. Multifocal ground-glass and nodular opacities in both lungs and small areas of consolidation in the lingula and left lower lobe, likely multifocal pneumonia. Please note that all CT scans at this facility use dose modulation, iterative reconstruction, and/or weight-based dosing when appropriate to reduce radiation dose to as low as reasonably achievable. Dictated by Jovany Hidalog MD @ Aug 03 2017 2:35PM (Electronic Signature) Report Signed by Proxy. [facility]
== END 2017-08-05 13:20 | disposition home or self-care (01) | DRG 139 ==
LOC: MW.ED 11:34 → MW.MS 14:43
PROVIDERS: ADMIT Family Medicine; ATTEND Family Medicine
DX: J15.9 Unspecified bacterial pneumonia (principal); C50.911 Malignant neoplasm of unspecified site of right female breast; F32.9 Major depressive disorder, single episode, unspecified; F17.210 Nicotine dependence, cigarettes, uncomplicated; Z17.0 Estrogen receptor positive status [ER+]; Z79.899 Other long term (current) drug therapy; Z79.891 Long term (current) use of opiate analgesic; Z85.820 Personal history of malignant melanoma of skin
CPT/HCPCS: 36415; 71046; 71046-26; 71275; 71275-26; 80048; 80053; 83735; 83880; 84100; 84484; 85025; 85379; 87040; 87070; 87205; 93005; 94640; 96365; 99283; 99285-25; A9270-GY; J0456; J0696; J1644; J2270; J3475; J7040; J7050; J7120; Q9967

== ENCOUNTER 2017-12-15 00:49 | Observation (INO) | payer BC ==
--- NOTE | 2017-12-15 01:14 | EDM.PDOC ---
ED HPI GENERAL MEDICAL PROBLEM - General Chief Complaint: Fever Stated Complaint: FEVER Time Seen by Provider: 12/15/17 00:49 Source of Information: Reports: Patient History Limitations: Reports: No Limitations - History of Present Illness INITIAL COMMENTS - FREE TEXT/NARRATIVE: HISTORY AND PHYSICAL: History of present illness: 52-year-old female presenting emergency department with chief complaint of fever , body aches, chills 4 days with past medical history of breast cancer on T[facility]. And Neulasta. Patient states she had chemotherapy on Saturday of last week but was only able to receive one shot of Neulasta. Then on Saturday she felt like she was starting to have a fever, generalized body aches and chills. She also has some associated nausea without vomiting and did have an episode of diarrhea with some crampy abdominal pain. States that she has been able to drink water and eat but only mildly as she gets very nauseous with food. This has progressed since Saturday so came to the ER for further assessment. Denies any chest pain , palpitations, shortness breath, syncopal episodes, or focal neurologic deficits. Review of systems: As per history of present illness and below otherwise all systems reviewed and negative. Past medical history: As per history of present illness and as reviewed below otherwise noncontributory. Surgical history: As per history of present illness and as reviewed below otherwise noncontributory. Social history: No reported history of drug or alcohol abuse. Family history: As per history of present illness and as reviewed below otherwise noncontributory. Physical exam: HEENT: Atraumatic, normocephalic, pupils reactive, negative for conjunctival pallor or scleral icterus, mucous membranes moist, throat clear, neck supple, nontender, trachea midline. Lungs: Clear to auscultation, breath sounds equal bilaterally, chest nontender. Heart: S1S2, regular, negative for clicks, rubs, or JVD. Abdomen: Soft, nondistended, generalized lower abdominal pain. Negative for masses or hepatosplenomegaly. Negative for costovertebral tenderness. Pelvis: Stable nontender. 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: Deferred. Rectal: Deferred. Extremities: Atraumatic, negative for cords or calf pain. Neurovascular unremarkable. Neuro: Awake, alert, oriented. Cranial nerves II through XII unremarkable. Cerebellum unremarkable. Motor and sensory unremarkable throughout. Exam nonfocal. Diagnostics: CBC, CMP, blood cultures 2, UA/UC, CT abdomen pelvis, CXR Therapeutics: 1 L normal saline, 3.375 Zosyn Impression: Neutropenic fever Plan: CBC showed neutropenia, CMP and urinalysis were unremarkable. Blood cultures were taken 2 and patient was started on Zosyn as well as [address] abdomen and pelvis were unremarkable. Most likely patient has a viral gastroenteritis however secondary to her neutropenia I did call hospitalist Dr. Calvo, who accepted the patient for admission observation for neutropenic fever. Definitive disposition and diagnosis as appropriate pending reevaluation and review of above. Treatments ADMINISTRATIVE DIETITIAN: Reports: Acetaminophen body Pain Score (Numeric/FACES): 2 - Related Data Allergies Allergy/AdvReac Type Severity Reaction Status Date / Time hydrocodone Allergy Itching Verified 12/15/17 01:03 Home Meds: Home Meds buPROPion [buPROPion XL] 300 mg PO DAILY 08/03/17 [History] busPIRone HCl [Buspirone HCl] 5 mg PO DAILY 08/03/17 [History] lamoTRIgine [Lamotrigine] 100 mg PO DAILY 08/03/17 [History] traMADol [Ultram] 1 tab PO BEDTIME 12/15/17 [History] traZODone HCl [Trazodone HCl] 0 mg PO ASDIRECTED PRN 12/15/17 [History] Past Medical History HEENT History: Reports: Allergic Rhinitis, Impaired Vision Other HEENT History: wears glasses Cardiovascular History: Reports: None Respiratory History: Reports: None, Other (See Below) Gastrointestinal History: Reports: None 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: Reports: None [employer]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: Musculoskeletal History: Reports: Fracture Other Musculoskeletal History: hx of fx right foot and ankle Neurological History: Reports: Other (See Below) Psychiatric History: Reports: Depression Endocrine/Metabolic History: Reports: None Hematologic History: Reports: None Immunologic History: Reports: None Oncologic (Cancer) History: Reports: Breast, Malignant Melanoma Other Oncologic History: on face, no treatment after removal Dermatologic History: Reports: None - Infectious Disease History Infectious Disease History: Reports: None - Past Surgical History Head Surgeries/Procedures: Reports: None GI Surgical History: Reports: Hernia, Abdominal Female Surgical History: Reports: Breast Biopsy Musculoskeletal Surgical History: Reports: ORIF, Other (See Below) Social & Family History - Family History Family Medical History: Noncontributory Cardiac: Reports: None - Tobacco Use Smoking Status *Q: Current Every Day Smoker Years of Tobacco use: 40 Packs/Tins Daily: 1 - Caffeine Use Caffeine Use: Reports: Coffee Other Caffeine Use: 3 cups per day - Recreational Drug Use Recreational Drug Use: No ED ROS GENERAL - Review of Systems Review Of Systems: ROS reveals no pertinent complaints other than HPI. ED EXAM, GENERAL - Physical Exam Exam: See Below Course - Vital Signs Last Recorded V/S: Last Vital Signs Temp 98.1 F 12/15/17 04:04 Pulse 88 12/15/17 04:04 Resp 18 12/15/17 04:04 BP 118/54 L 12/15/17 04:04 Pulse Ox 95 12/15/17 04:04 - Orders/Labs/Meds Orders: Active Orders 24 hr Category Date Time Status Admission Status [Patient Status] [ADT] Stat ADT 12/15/17 04:02 Ordered Abdomen Pelvis wo Cont [CT] Stat Exams 12/15/17 01:19 Taken CXR [Chest 1V Frontal] [CR] Stat Exams 12/15/17 04:10 Ordered CULTURE BLOOD [BC] Stat Lab 12/15/17 01:36 Received CULTURE BLOOD [BC] Stat Lab 12/15/17 01:50 Received CULTURE URINE [RM] Stat Lab 12/15/17 01:45 Ordered UA W/MICROSCOPIC [URIN] Stat Lab 12/15/17 01:45 Ordered Piperacillin/Tazobactam [Piperacil-Tazobact] 3.375 gm Med 12/15/17 03:56 Active Sodium Chloride 0.9% [Normal Saline] 50 ml IV ONETIME Sodium Chloride 0.9% [Saline Flush] Med 12/15/17 01:19 Active 10 ml FLUSH ASDIRECTED PRN Sodium Chloride 0.9% [Saline Flush] Med 12/15/17 01:19 Active 2.5 ml FLUSH ASDIRECTED PRN Sodium Chloride 0.9% [Saline Flush] Med 12/15/17 01:19 Active 2.5 ml FLUSH ASDIRECTED PRN cefTAZidime [Fortaz] 1 gm Med 12/15/17 02:45 Active Dextrose 5% in Water 100 ml IV Q8H Blood Culture x2 Reflex Set [OM.PC] Stat Oth 12/15/17 01:20 Ordered Saline Lock Insert [OM.PC] Stat Oth 12/15/17 01:19 Ordered Medication Orders Ceftazidime 1 gm/ Dextrose/ (Water) 100 mls @ 200 mls/hr IV Q8H EARL Last Admin: 12/15/17 03:58 Dose: Piperacillin Sod/Tazobactam (Sod 3.375 gm/ Sodium Chloride) 50 mls @ 100 mls/ hr IV ONETIME ONE Stop: 12/15/17 04:25 Last Admin: 12/15/17 04:03 Dose: 100 mls/hr Sodium Chloride (Saline Flush) 2.5 ml FLUSH ASDIRECTED PRN PRN Reason: Keep Vein Open Sodium Chloride (Saline Flush) 10 ml FLUSH ASDIRECTED PRN PRN Reason: Keep Vein Open Sodium Chloride (Saline Flush) 2.5 ml FLUSH ASDIRECTED PRN PRN Reason: Keep Vein Open Labs: Laboratory Tests 12/15/17 12/15/17 12/15/17 Range/Units 01:36 01:36 01:45 WBC 3.84 L (4.0-11.0) K/uL RBC 3.81 L (4.30-5.90) M/uL Hgb 11.4 L (12.0-16.0) g/dL Hct 34.8 L (36.0-46.0) % MCV 91.3 (80.0-98.0) fL MCH 29.9 (27.0-32.0) pg MCHC 32.8 (31.0-37.0) g/dL RDW Std Deviation 53.9 (28.0-62.0) fl RDW Coeff of Breanna 16 H (11.0-15.0) % Plt Count 174 (150-400) K/uL MPV 8.60 (7.40-12.00) fL Neut % (Auto) 88.3 H (48.0-80.0) % Lymph % (Auto) 9.4 L (16.0-40.0) % Petroleum % (Auto) 0.8 (0.0-15.0) % Eos % (Auto) 1.0 (0.0-7.0) % Baso % (Auto) 0.5 (0.0-1.5) % Neut # (Auto) 3.4 (1.4-5.7) K/uL Lymph # (Auto) 0.4 L (0.6-2.4) K/uL [place] # (Auto) 0.0 (0.0-0.8) K/uL Eos # (Auto) 0.0 (0.0-0.7) K/uL Baso # (Auto) 0.0 (0.0-0.1) K/uL Nucleated RBC % 0.0 /100WBC Nucleated RBCs # 0 K/uL Sodium 135 L (136-145) mmol/L Potassium 4.2 (3.5-5.1) mmol/L Chloride 102 (98-107) mmol/L Carbon Dioxide 26.9 (21.0-32.0) mmol/L BUN 15 (7.0-18.0) mg/dL Creatinine 0.7 (0.6-1.0) mg/dL Est Cr Clr Drug Dosing 73.51 mL/min Estimated GFR (MDRD) > 60.0 ml/min Glucose 119 H (74-106) mg/dL Calcium 8.9 (8.5-10.1) mg/dL Total Bilirubin 0.4 (0.2-1.0) mg/dL AST 37 (15-37) IU/L ALT 52 (14-63) IU/L Alkaline Phosphatase 61 (46-116) U/L Total Protein 6.9 (6.4-8.2) g/dL Albumin 3.7 (3.4-5.0) g/dL Globulin 3.2 (2.0-3.5) g/dL Albumin/Globulin Ratio 1.2 L (1.3-2.8) Lipase 110 (73-393) U/L Urine Color YELLOW Urine Appearance CLEAR Urine pH 5.5 (5.0-8.0) Ur Specific [place] 1.025 (1.001-1.035) Urine Protein NEGATIVE (NEGATIVE) mg/dL Urine Glucose (UA) NEGATIVE (NEGATIVE) mg/dL Urine Ketones NEGATIVE (NEGATIVE) mg/dL Urine Occult Blood NEGATIVE (NEGATIVE) Urine Nitrite NEGATIVE (NEGATIVE) Urine Bilirubin NEGATIVE (NEGATIVE) Urine Urobilinogen 0.2 (<2.0) EU/dL Ur Leukocyte Esterase NEGATIVE (NEGATIVE) Urine RBC 1-2 (0-2/HPF) Urine WBC 1-2 (0-5/HPF) Ur Epithelial Cells FEW (NONE-FEW) Urine Bacteria FEW (NEGATIVE) Meds: Medications Generic Name Dose Route Start Last Admin Trade Name Jose PRN Reason Stop Dose Admin Ceftazidime 1 gm/ Dextrose/ 100 mls @ 200 mls/hr 12/15/17 02:45 12/15/17 03: 58 Water IV Not Given Q8H EARL Piperacillin Sod/Tazobactam 50 mls @ 100 mls/hr 12/15/17 03:56 12/15/17 04:03 Sod 3.375 gm/ Sodium Chloride IV 12/15/17 04:25 100 mls/hr ONETIME ONE Administration Sodium Chloride 2.5 ml 12/15/17 01:19 Saline Flush FLUSH ASDIRECTED PRN Keep Vein Open Sodium Chloride 10 ml 12/15/17 01:19 Saline Flush FLUSH ASDIRECTED PRN Keep Vein Open Sodium Chloride 2.5 ml 12/15/17 01:19 Saline Flush FLUSH ASDIRECTED PRN Keep Vein Open Discontinued Medications Generic Name Dose Route Start Last Admin Trade Name Jose PRN Reason Stop Dose Admin Sodium Chloride 1,000 mls @ 999 mls/hr 12/15/17 01:19 12/15/17 01:41 Normal Saline IV 12/15/17 02:19 999 mls/hr .Bolus ONE Administration Ondansetron HCl 4 mg 12/15/17 01:19 12/15/17 01:41 Zofran IVPUSH 12/15/17 01:20 4 mg ONETIME ONE Administration Departure - Departure Time of Disposition: 04:13 Disposition: Admitted As Inpatient 65 Condition: Fair Clinical Impression: Neutropenic fever - Discharge Information Referrals: Annie Qureshi NP [Primary Care Provider] - Forms: ED Department Discharge - My Orders Last 24 Hours: My Active Orders 12/15/17 01:19 Abdomen Pelvis wo Cont [CT] Stat Sodium Chloride 0.9% [Saline Flush] 10 ml FLUSH ASDIRECTED PRN Sodium Chloride 0.9% [Saline Flush] 2.5 ml FLUSH ASDIRECTED PRN Sodium Chloride 0.9% [Saline Flush] 2.5 ml FLUSH ASDIRECTED PRN Saline Lock Insert [OM.PC] Stat 12/15/17 01:20 Blood Culture x2 Reflex Set [OM.PC] Stat 12/15/17 01:36 CULTURE BLOOD [BC] Stat 12/15/17 01:45 CULTURE URINE [RM] Stat UA W/MICROSCOPIC [URIN] Stat 12/15/17 01:50 CULTURE BLOOD [BC] Stat 12/15/17 02:45 cefTAZidime [Fortaz] 1 gm Dextrose 5% in Water 100 ml IV Q8H 12/15/17 03:56 Piperacillin/Tazobactam [Piperacil-Tazobact] 3.375 gm Sodium Chloride 0.9% [ Normal Saline] 50 ml IV ONETIME 12/15/17 04:02 Admission Status [Patient Status] [ADT] Stat 12/15/17 04:10 CXR [Chest 1V Frontal] [CR] Stat - Assessment/Plan Last 24 Hours: My Active Orders 12/15/17 01:19 Abdomen Pelvis wo Cont [CT] Stat Sodium Chloride 0.9% [Saline Flush] 10 ml FLUSH ASDIRECTED PRN Sodium Chloride 0.9% [Saline Flush] 2.5 ml FLUSH ASDIRECTED PRN Sodium Chloride 0.9% [Saline Flush] 2.5 ml FLUSH ASDIRECTED PRN Saline Lock Insert [OM.PC] Stat 12/15/17 01:20 Blood Culture x2 Reflex Set [OM.PC] Stat 12/15/17 01:36 CULTURE BLOOD [BC] Stat 12/15/17 01:45 CULTURE URINE [RM] Stat UA W/MICROSCOPIC [URIN] Stat 12/15/17 01:50 CULTURE BLOOD [BC] Stat 12/15/17 02:45 cefTAZidime [Fortaz] 1 gm Dextrose 5% in Water 100 ml IV Q8H 12/15/17 03:56 Piperacillin/Tazobactam [Piperacil-Tazobact] 3.375 gm Sodium Chloride 0.9% [ Normal Saline] 50 ml IV ONETIME 12/15/17 04:02 Admission Status [Patient Status] [ADT] Stat 12/15/17 04:10 CXR [Chest 1V Frontal] [CR] Stat
[2017-12-15] MEDS ORDERED: Sodium Chloride 0.9% 2.5 ML Syringe FLUSH PRN ×2 (01:19)
[2017-12-15] MEDS ORDERED: Ondansetron 4 MG/2 ML SDV IVPUSH ONE (01:19)
[2017-12-15] MEDS ORDERED: Sodium Chloride 0.9% 1,000 ML IV ONE (01:19)
[2017-12-15] MEDS ORDERED: Sodium Chloride 0.9% 10 ML Syringe FLUSH PRN (01:19)
[2017-12-15 02:03] LABS: CHLORIDE,CL 102 mmol/L (98-107); SODIUM,NA 135 mmol/L (136-145)
[2017-12-15] MEDS ORDERED: cefTAZidime Pentahydrate 1 GM in Dextrose 5% in Water 100 ML IV SCH ×2 (02:45)
[2017-12-15] MEDS ORDERED: Piperacillin/Tazobactam 3.375 GM in Sodium Chloride 0.9% 50 ML IV ONE (03:56)
[2017-12-15] MEDS ORDERED: Ondansetron 4 MG/2 ML SDV IVPUSH PRN (05:07)
[2017-12-15] MEDS ORDERED: Morphine 2 MG/ML Syringe IVPUSH PRN (05:08)
[2017-12-15] MEDS ORDERED: Enoxaparin 40 MG/0.4 ML Syringe SUBCUT ONE (05:30)
[2017-12-15] MEDS: Sodium Chloride 0.9% 1,000 ML IV SCH (06:02)
[2017-12-15 06:37] LABS: CHLORIDE,CL 105 mmol/L (98-107); SODIUM,NA 138 mmol/L (136-145)
[2017-12-15] MEDS: Piperacillin/Tazobactam 4.5 GM in Sodium Chloride 0.9% 100 ML IV SCH ×2 (06:42→11:39)
[2017-12-15] MEDS ORDERED: traZODone 50 MG Tab PO PRN (09:23)
[2017-12-15] MEDS ORDERED: lamoTRIgine 100 MG Tab PO SCH (09:30)
[2017-12-15] MEDS: methylPREDNISolone Sodium Succinate 40 MG/1 ML SDV IVPUSH SCH ×2 (10:22→15:33)
[2017-12-15] MEDS: busPIRone 5 MG Tab PO SCH (10:22)
[2017-12-15] MEDS: Enoxaparin 40 MG/0.4 ML Syringe SUBCUT SCH (10:22)
[2017-12-15] MEDS ORDERED: Ciprofloxacin in D5W 400 MG in Premix Bag 1 BAG IV SCH ×2 (15:00)
[2017-12-15] MEDS ORDERED: Filgrastim 300 MCG/ML SDV SUBCUT SCH (15:15)
[2017-12-15] MEDS: metroNIDAZOLE/Normal Saline 500 MG in Premix Bag 1 BAG IV SCH ×2 (18:07→23:28)
--- NOTE | 2017-12-15 18:52 | PCM.HP ---
H&P History of Present Illness - General Date of Service: 12/15/17 Admit Problem/Dx: Admission Diagnosis/Problem Admission Diagnosis/Problem Neutropenia body Pain Score (Numeric/FACES): 0 - Related Data Allergies/Adverse Reactions: Allergies Allergy/AdvReac Type Severity Reaction Status Date / Time hydrocodone Allergy Itching Verified 12/15/17 01:03 Home Medications: Home Meds busPIRone HCl [Buspirone HCl] 5 mg PO DAILY 08/03/17 [History] lamoTRIgine [Lamotrigine] 100 mg PO DAILY 08/03/17 [History] traMADol [Ultram] 1 tab PO BEDTIME 12/15/17 [History] traZODone HCl [Trazodone HCl] 0 mg PO ASDIRECTED PRN 12/15/17 [History] Past Medical History HEENT History: Reports: Allergic Rhinitis, Impaired Vision Other HEENT History: wears glasses Cardiovascular History: Reports: None Respiratory History: Reports: None, Other (See Below) Gastrointestinal History: Reports: None 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: Reports: None 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: Musculoskeletal History: Reports: Fracture Other Musculoskeletal History: hx of fx right foot and ankle Neurological History: Reports: None Psychiatric History: Reports: Depression Endocrine/Metabolic History: Reports: None Hematologic History: Reports: None Immunologic History: Reports: None Oncologic (Cancer) History: Reports: Breast, Malignant Melanoma Other Oncologic History: on face, no treatment after removal Dermatologic History: Reports: None - Infectious Disease History Infectious Disease History: Reports: None - Past Surgical History Head Surgeries/Procedures: Reports: None HEENT Surgical History: Reports: None Cardiovascular Surgical History: Reports: None Respiratory Surgical History: Reports: None GI Surgical History: Reports: Hernia, Abdominal Female Surgical History: Reports: Breast Biopsy, Other (See Below) Other Female Surgeries/Procedures: right lumpectomy and lymphadectomy Endocrine Surgical History: Reports: None Neurological Surgical History: Reports: Other (See Below) Other Neurological Surgeries/Procedures: spinale surgery Musculoskeletal Surgical History: Reports: ORIF, Other (See Below) Oncologic Surgical History: Reports: Biopsy of Breast, Lumpectomy Dermatological Surgical History: Reports: None Social & Family History - Family History Family Medical History: Noncontributory Cardiac: Reports: None - Tobacco Use Smoking Status *Q: Current Some Day Smoker Years of Tobacco use: 40 Packs/Tins Daily: 3 Second Hand Smoke Exposure: No - Caffeine Use Caffeine Use: Reports: Coffee Other Caffeine Use: 3 cups per day Caffeine Use Comment: 3cups /day - Recreational Drug Use Recreational Drug Use: No Exam - Vital Signs Vital Signs: Last Vital Signs Temp 98.7 F 12/15/17 15:14 Pulse 82 12/15/17 15:14 Resp 18 12/15/17 15:14 BP 147/81 H 12/15/17 15:14 Pulse Ox 97 12/15/17 15:14 Weight: 201 lb 11.567 oz - Patient Data Lab Results Last 24 hrs: Laboratory Results - last 24 hr 12/15/17 12/15/17 12/15/17 Range/Units 01:36 01:36 01:45 WBC 3.84 L (4.0-11.0) K/uL RBC 3.81 L (4.30-5.90) M/uL Hgb 11.4 L (12.0-16.0) g/dL Hct 34.8 L (36.0-46.0) % MCV 91.3 (80.0-98.0) fL MCH 29.9 (27.0-32.0) pg MCHC 32.8 (31.0-37.0) g/dL RDW Std Deviation 53.9 (28.0-62.0) fl RDW Coeff of Breanna 16 H (11.0-15.0) % Plt Count 174 (150-400) K/uL MPV 8.60 (7.40-12.00) fL Neut % (Auto) 88.3 H (48.0-80.0) % Lymph % (Auto) 9.4 L (16.0-40.0) % [place] % (Auto) 0.8 (0.0-15.0) % Eos % (Auto) 1.0 (0.0-7.0) % Baso % (Auto) 0.5 (0.0-1.5) % Neut # (Auto) 3.4 (1.4-5.7) K/uL Lymph # (Auto) 0.4 L (0.6-2.4) K/uL [place] # (Auto) 0.0 (0.0-0.8) K/uL Eos # (Auto) 0.0 (0.0-0.7) K/uL Baso # (Auto) 0.0 (0.0-0.1) K/uL Nucleated RBC % 0.0 /100WBC Nucleated RBCs # 0 K/uL Sodium 135 L (136-145) mmol/L Potassium 4.2 (3.5-5.1) mmol/L Chloride 102 (98-107) mmol/L Carbon Dioxide 26.9 (21.0-32.0) mmol/L BUN 15 (7.0-18.0) mg/dL Creatinine 0.7 (0.6-1.0) mg/dL Est Cr Clr Drug Dosing 73.51 mL/min Estimated GFR (MDRD) > 60.0 ml/min Glucose 119 H (74-106) mg/dL Calcium 8.9 (8.5-10.1) mg/dL Magnesium (1.8-2.4) mg/dL Total Bilirubin 0.4 (0.2-1.0) mg/dL AST 37 (15-37) IU/L ALT 52 (14-63) IU/L Alkaline Phosphatase 61 (46-116) U/L Total Protein 6.9 (6.4-8.2) g/dL Albumin 3.7 (3.4-5.0) g/dL Globulin 3.2 (2.0-3.5) g/dL Albumin/Globulin Ratio 1.2 L (1.3-2.8) Lipase 110 (73-393) U/L Urine Color YELLOW Urine Appearance CLEAR Urine pH 5.5 (5.0-8.0) Ur Specific [place] 1.025 (1.001-1.035) Urine Protein NEGATIVE (NEGATIVE) mg/dL Urine Glucose (UA) NEGATIVE (NEGATIVE) mg/dL Urine Ketones NEGATIVE (NEGATIVE) mg/dL Urine Occult Blood NEGATIVE (NEGATIVE) Urine Nitrite NEGATIVE (NEGATIVE) Urine Bilirubin NEGATIVE (NEGATIVE) Urine Urobilinogen 0.2 (<2.0) EU/dL Ur Leukocyte Esterase NEGATIVE (NEGATIVE) Urine RBC 1-2 (0-2/HPF) Urine WBC 1-2 (0-5/HPF) Ur Epithelial Cells FEW (NONE-FEW) Urine Bacteria FEW (NEGATIVE) 12/15/17 12/15/17 Range/Units 05:55 05:55 WBC 2.14 L (4.0-11.0) K/uL RBC 3.53 L (4.30-5.90) M/uL Hgb 10.4 L (12.0-16.0) g/dL Hct 32.4 L (36.0-46.0) % MCV 91.8 (80.0-98.0) fL MCH 29.5 (27.0-32.0) pg MCHC 32.1 (31.0-37.0) g/dL RDW Std Deviation 54.6 (28.0-62.0) fl RDW Coeff of Breanna 16 H (11.0-15.0) % Plt Count 176 (150-400) K/uL MPV 8.60 (7.40-12.00) fL Neut % (Auto) 73.9 (48.0-80.0) % Lymph % (Auto) 21.0 (16.0-40.0) % Boyle % (Auto) 1.4 (0.0-15.0) % Eos % (Auto) 2.3 (0.0-7.0) % Baso % (Auto) 1.4 (0.0-1.5) % Neut # (Auto) 1.6 (1.4-5.7) K/uL Lymph # (Auto) 0.5 L (0.6-2.4) K/uL Boyle # (Auto) 0.0 (0.0-0.8) K/uL Eos # (Auto) 0.1 (0.0-0.7) K/uL Baso # (Auto) 0.0 (0.0-0.1) K/uL Nucleated RBC % 0.0 /100WBC Nucleated RBCs # 0 K/uL Sodium 138 (136-145) mmol/L Potassium 4.0 (3.5-5.1) mmol/L Chloride 105 (98-107) mmol/L Carbon Dioxide 27.7 (21.0-32.0) mmol/L BUN 11 (7.0-18.0) mg/dL Creatinine 0.6 (0.6-1.0) mg/dL Est Cr Clr Drug Dosing 85.76 mL/min Estimated GFR (MDRD) > 60.0 ml/min Glucose 102 (74-106) mg/dL Calcium 8.4 L (8.5-10.1) mg/dL Magnesium 1.8 (1.8-2.4) mg/dL Total Bilirubin 0.4 (0.2-1.0) mg/dL AST 37 (15-37) IU/L ALT 53 (14-63) IU/L Alkaline Phosphatase 52 (46-116) U/L Total Protein 6.3 L (6.4-8.2) g/dL Albumin 3.3 L (3.4-5.0) g/dL Globulin 3.0 (2.0-3.5) g/dL Albumin/Globulin Ratio 1.1 L (1.3-2.8) Lipase (73-393) U/L Urine Color Urine Appearance Urine pH (5.0-8.0) Ur Specific [place] (1.001-1.035) Urine Protein (NEGATIVE) mg/dL Urine Glucose (UA) (NEGATIVE) mg/dL Urine Ketones (NEGATIVE) mg/dL Urine Occult Blood (NEGATIVE) Urine Nitrite (NEGATIVE) Urine Bilirubin (NEGATIVE) Urine Urobilinogen (<2.0) EU/dL Ur Leukocyte Esterase (NEGATIVE) Urine RBC (0-2/HPF) Urine WBC (0-5/HPF) Ur Epithelial Cells (NONE-FEW) Urine Bacteria (NEGATIVE) Result Diagrams: 12/15/17 05:55 12/15/17 05:55 Orders Last 24hrs: Active Orders 24 hr Category Date Time Status Admission Status [Patient Status] [ADT] Stat ADT 12/15/17 04:02 Active Activity as Tolerated [RC] .Routine Care 12/15/17 05:06 Active Vital Signs [RC] Q4H Care 12/15/17 08:00 Active Regular Diet [DIET] Diet 12/15/17 Breakfast Active Abdomen Pelvis wo Cont [CT] Stat Exams 12/15/17 01:19 Taken CXR [Chest 1V Frontal] [CR] Stat Exams 12/15/17 04:10 Taken CULTURE BLOOD [BC] Stat Lab 12/15/17 01:36 Received CULTURE BLOOD [BC] Stat Lab 12/15/17 01:50 Received CULTURE STOOL + CAMPY+SHIGATOX [RM] Routine Lab 12/15/17 13:47 Ordered CULTURE URINE [RM] Stat Lab 12/15/17 01:45 Ordered H PYLORI STOOL ANTIGEN [MREF] Routine Lab 12/15/17 13:47 Ordered WBC, STOOL [OP] Routine Lab 12/15/17 13:47 Ordered Ciprofloxacin in D5W [Cipro in D5W 400 MG/200 ML] 400 Med 12/15/17 15:00 Active mg Premix Bag 1 bag IV Q12H Enoxaparin [Lovenox] Med 12/15/17 09:41 Active 40 mg SUBCUT DAILY Morphine Med 12/15/17 05:08 Active 2 mg IVPUSH Q2H PRN Ondansetron [Zofran] Med 12/15/17 05:07 Active 4 mg IVPUSH Q4H PRN Sodium Chloride 0.9% [Normal Saline] 1,000 ml Med 12/15/17 05:15 Active IV ASDIRECTED Sodium Chloride 0.9% [Saline Flush] Med 12/15/17 01:19 Active 10 ml FLUSH ASDIRECTED PRN Sodium Chloride 0.9% [Saline Flush] Med 12/15/17 01:19 Active 2.5 ml FLUSH ASDIRECTED PRN Sodium Chloride 0.9% [Saline Flush] Med 12/15/17 01:19 Active 2.5 ml FLUSH ASDIRECTED PRN Tbo-Filgrastim [Granix] Med 12/15/17 16:21 Active 300 mcg SUBCUT DAILY busPIRone [Buspar] Med 12/15/17 09:30 Active 5 mg PO DAILY methylPREDNISolone Sod Succ [Solu-MEDROL] Med 12/15/17 09:30 Active 40 mg IVPUSH Q6H metroNIDAZOLE/Normal Saline [Flagyl 500 MG in NS 100 ML Med 12/15/17 18:00 Active ] 500 mg Premix Bag 1 bag IV QID traMADol [Ultram] Med 12/15/17 21:00 Active 50 mg PO BEDTIME traZODone Med 12/15/17 09:23 Active 50 mg PO BEDTIME PRN Blood Culture x2 Reflex Set [OM.PC] Stat Oth 12/15/17 01:20 Ordered Saline Lock Insert [OM.PC] Stat Oth 12/15/17 01:19 Ordered Medication Orders Buspirone HCl (Buspar) 5 mg PO DAILY [facility] Last Admin: 12/15/17 10:22 Dose: 5 mg Enoxaparin Sodium (Lovenox) 40 mg SUBCUT DAILY [facility] Last Admin: 12/15/17 10:22 Dose: 40 mg Sodium Chloride (Normal Saline) 1,000 mls @ 100 mls/hr IV ASDIRECTED [facility] Last Admin: 12/15/17 06:02 Dose: 100 mls/hr Metronidazole 500 mg/ Premix 100 mls @ 100 mls/hr IV QID [facility] Last Admin: 12/15/17 18:07 Dose: 100 mls/hr Ciprofloxacin/Dextrose 400 mg/ (Premix) 200 mls @ 200 mls/hr IV Q12H [facility] Last Admin: 12/15/17 15:34 Dose: 200 mls/hr Methylprednisolone Sodium Succinate (Solu-Medrol) 40 mg IVPUSH Q6H [facility] Stop: 12/15/17 20:00 Last Admin: 12/15/17 15:33 Dose: 40 mg Admin: 12/15/17 10:22 Dose: 40 mg Morphine Sulfate (Morphine) 2 mg IVPUSH Q2H PRN PRN Reason: Pain Ondansetron HCl (Zofran) 4 mg IVPUSH Q4H PRN PRN Reason: Nausea/Vomiting Sodium Chloride (Saline Flush) 2.5 ml FLUSH ASDIRECTED PRN PRN Reason: Keep Vein Open Sodium Chloride (Saline Flush) 10 ml FLUSH ASDIRECTED PRN PRN Reason: Keep Vein Open Sodium Chloride (Saline Flush) 2.5 ml FLUSH ASDIRECTED PRN PRN Reason: Keep Vein Open Tbo-Filgrastim (Granix) 300 mcg SUBCUT DAILY [facility] Last Admin: 12/15/17 16:55 Dose: 300 mcg Tramadol HCl (Ultram) 50 mg PO BEDTIME [facility] Trazodone HCl (Trazodone) 50 mg PO BEDTIME PRN PRN Reason: Insomnia
[2017-12-15] MEDS ORDERED: traMADol 50 MG Tab PO SCH (21:00)
--- NOTE | 2017-12-15 23:07 | PCM.SN ---
- Free Text/Narrative Note: [id number]
--- NOTE | 2017-12-16 00:20 | HP ---
DATE OF : 1965 PRIMARY CARE PHYSICIAN: Annie Qureshi NP CHIEF COMPLAINT: Body aches and chills for 4 days, and medical history of breast cancer on chemotherapy and Neulasta. HISTORY OF PRESENT ILLNESS: The patient is a 52-year-old female, who presented to emergency room because she states she was "feeling off ", tired, in bed since Saturday. Saturday, she had a generalized body ache and chills and felt miserable and subjective feeling of fever. The patient did not measure her temperature and she also had hot flashes and says that her fever does not shows up on the thermometer when she checks it , she just feels "hot inside her body" She also complained of diarrhea 4 to 5 times a day, watery and nausea. No coughs. No urinary problems. She took Imodium but it did not help and she also complained of crampy abdominal pain. Her WBC were in the 3000 , low and today she was due to have the second dose of Lunesta. PAST MEDICAL HISTORY: She had breast cancer and she was diagnosed with breast cancer on April 26, 2017, right breast. She is status post lumpectomy, right breast. Last Saturday, she had the last chemotherapy and she is supposed to undergo a 12-month fusion which is a targeted therapy and radiation for 4 to 6 weeks. Her oncologist is Dr. Oneal. PAST SURGICAL HISTORY: She had 7 hernia surgeries in the last 3 years, full abdominal reconstruction, and had abdominal reconstruction last February. She is status post mesh placement for abdominal hernia. She also has history of broken ankle and foot, and she had a neck fusion. ALLERGIES: She is allergic to hydrocodone. She gets itching. SOCIAL HISTORY: Smoking history, she smokes 2 to 3 cigarettes a week. Alcohol rarely. Drugs none. 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 FAMILY HISTORY: Her mom had ovarian cancer and of CHF, stroke. She also had stroke. Father had a myocardial infarction. She also had a brother with heart problems. VITAL SIGNS: At admission; temperature 97.3, pulse rate 83, blood pressure 129/53, and respiratory rate 16, oxygen saturation 97%. PHYSICAL EXAMINATION: HEENT: Head is atraumatic, normocephalic. Pupils are equal and reactive to light. NECK: Supple. No thyromegaly. No lymphadenopathy. LUNGS: Clear to auscultation bilaterally. HEART: S1, S2. Regular rhythm and rate. ABDOMEN: Soft, nontender. Positive bowel sounds. EXTREMITIES: No edema. NEUROLOGIC: The patient is alert, oriented x3. There are no gross focal neurologic deficits. LABORATORY DATA: At admission; WBC 3.84, hemoglobin 11.4, hematocrit 34.8, and platelet count 174, neutrophil percentage high at 88.3, lymphocytes 9.4 and low. Sodium is 135, potassium 4.2, chloride 102, CO2 of 26.9, BUN 15, creatinine 0.7, estimated creatinine clearance 73.51, glucose 119, calcium 8.9, magnesium 1.8. Total bilirubin 0.4, AST 37, ALT 52, alkaline phosphatase 61, total protein 6.9, albumin 3.7, globulin 3.2, lipase 110. Urinalysis show urine color is yellow, urine appearance clear, urine pH 5.5, specific gravity 1.025, protein negative, glucose negative, ketone negative, occult blood negative, nitrite negative, bilirubin negative, urobilinogen 0.2, leukocyte esterase negative, rbc's 1 to 2, wbc's 1 to 2, epithelial cells few, urine bacteria few. IMAGING: The patient had an abdomen and pelvis CT which was negative. Chest x-ray was negative. ASSESSMENT: 1. Leukopenia and diarrhea status post chemotherapy, right breast cancer. 2. Anxiety. PLAN: We will admit the patient to medical floor and we will start the patient on IV fluids, normal saline at 100 mL/hour and for leukopenia, we will hold lamotrigine which can cause also leukopenia and we will give the patient Solu- Medrol 40 mg IV q.12 hours for 2 dosages, and we will also give the patient Neupogen. We will follow up leukocyte count for diarrhea. We will order stool for WBC, stool for Campylobacter, Shiga toxin 1 and Shiga toxin 2, and stool for C diff. At this time, we will start the patient on ciprofloxacin 400 mg IV q.12 hours and metronidazole 500 mg IV q.i.d. For nausea and vomiting, we will give the patient Zofran 4 mg IV q.4 hours p.r.n. For anxiety, the patient will be continued with buspirone 5 mg p.o. daily. For pain, the patient will be continued with tramadol 50 mg p.o. at bedtime and trazodone 50 mg p.o. at bedtime. ANTFRANCHESKAT / MODL /[id number] MTDD
[2017-12-16] MEDS ORDERED: cefTRIAXone 1 GM in Premix Bag 1 BAG IV SCH (02:30)
[2017-12-16] MEDS ORDERED: Vancomycin 1.5 GM in Sodium Chloride 0.9% 500 ML IV SCH (03:00)
[2017-12-16] MEDS: metroNIDAZOLE/Normal Saline 500 MG in Premix Bag 1 BAG IV SCH (05:09)
[2017-12-16 06:48] LABS: CHLORIDE,CL 104 mmol/L (98-107); SODIUM,NA 139 mmol/L (136-145)
[2017-12-16 07:37] VITALS: BP 133/74
[2017-12-16] MEDS ORDERED: Enoxaparin 40 MG/0.4 ML Syringe SUBCUT SCH (09:00)
[2017-12-16] MEDS: busPIRone 5 MG Tab PO SCH ×2 (09:59→10:03)
[2017-12-16] MEDS: Enoxaparin 40 MG/0.4 ML Syringe SUBCUT SCH (09:59)
[2017-12-16] MEDS: Sodium Chloride 0.9% 1,000 ML IV SCH (10:04)
[2017-12-16] MEDS ORDERED: Potassium Chloride 20 MEQ Tab.ER PO ONE (10:22)
[2017-12-16] MEDS ORDERED: metroNIDAZOLE 250 MG Tab PO SCH (10:30)
--- NOTE | 2017-12-16 13:26 | CT ---
EXAM DATE: 12/15/17 PATIENT'S AGE: 52 Patient: SANCHEZ MAZARIEGOS Facility: [place], [place] Site . Site : 1965 Study: CT Abdomen/Pelvis WO CONT [id number]/22/2018 2:17:19 AM Ordering Physician: Josiah Benson Final Report: INDICATION: Abdominal pain with nausea and vomiting. History of cancer. TECHNIQUE: CT abdomen and pelvis without contrast. COMPARISON: CT study dated 05/17/2016. FINDINGS: Joint Runner CT images: Nonobstructive bowel gas pattern. Lower chest: Unremarkable. Liver: Unremarkable. Spleen: Unremarkable. Pancreas: Unremarkable. Gallbladder and bile ducts: Unremarkable. Adrenal glands: Unremarkable. Kidneys: Unremarkable. No kidney or ureteral stones and no hydronephrosis. GI tract: Unremarkable. Appendix is normal. Vascular structures: Unremarkable. Lymph nodes: Unremarkable. Miscellaneous: Fat containing right periumbilical hernia defect, series 2, image 83. No significant fluid or fat stranding within the hernia defect. Pelvic Organs: Unremarkable. Bones: Unremarkable for age. IMPRESSION: 1. No bowel obstruction, free fluid, or free air. 2. Normal appendix. 3. Fat-containing right periumbilical hernia defect, series 2, image 83. Hernia neck measures 1.2 centimeters in craniocaudal dimension on sagittal reformat image 45. Dictated by Ismael Adamson MD @ 12/15/2017 3:24:03 AM Please note that all CT scans at this facility use dose modulation, iterative reconstruction, and/or weight-based dosing when appropriate to reduce radiation dose to as low as reasonably achievable. Dictated by: Ismael Adamson MD @ 12/15/2017 03:24:11 (Electronic Signature) Report Signed by Proxy. [facility] DIVISIONAshley
--- NOTE | 2017-12-16 13:29 | CR ---
EXAM DATE: 12/15/17 PATIENT'S AGE: 52 Patient: SANCHEZ MAZARIEGOS Facility: [place], [place] Site . Site : 1965 Study: XRay Chest [id number]/22/2018 4:30:22 AM Ordering Physician: Josiah Benson Final Report: INDICATION: Fever, history of cancer. Neutropenic. TECHNIQUE: Chest radiograph 1 view COMPARISON: 08/03/2017. FINDINGS: Left subclavian catheter, tip in the expected SVC. Lower cervical spine fusion hardware, partially visualized. Improved aeration in the left lower lung zone. No new area of airspace consolidation. No cavitary nodules or pleural effusions. Heart and mediastinal contours stable. IMPRESSION: 1. No acute cardiopulmonary disease is seen. Resolution of left lower lobe infiltrate from July 2017. Dictated by Ismael Adamson MD @ 12/15/2017 5:29:15 AM Dictated by: Ismael Adamson MD @ 12/15/2017 05:29:20 (Electronic Signature) Report Signed by Proxy. [facility] CENTERAshley
--- NOTE | 2017-12-16 16:40 | PCM.DCSUM1 ---
Discharge Summary - Hospital Course Diagnosis: Stroke: No - Discharge Data Discharge Disposition: Home, Self-Care 01 Condition: Fair - Discharge Diagnosis/Problem(s) (1) C. difficile diarrhea SNOMED Code(s): 0405174536661 ICD Code: A04.72 - ENTEROCOLITIS D/T CLOSTRIDIUM DIFFICILE, NOT SPCF RECUR Status: Acute - Patient Instructions Diet: Usual Diet as Tolerated Activity: As Tolerated Driving: May Drive Today - Discharge Plan Prescriptions/Med Rec: metroNIDAZOLE [Flagyl] 500 mg PO TID #54 tab Home Medications: Home Meds busPIRone HCl [Buspirone HCl] 5 mg PO DAILY 08/03/17 [History] traMADol [Ultram] 1 tab PO BEDTIME 12/15/17 [History] traZODone HCl [Trazodone HCl] 0 mg PO ASDIRECTED PRN 12/15/17 [History] metroNIDAZOLE [Flagyl] 500 mg PO TID #54 tab 12/16/17 [Rx] Patient Handouts: Clostridium Difficile Infection, [id number], Neutropenia, Metronidazole tablets or capsules Referrals: [facility] [Outside] Annie Qureshi BAD CREDIT COLLECTOR [Primary Care Provider] - 12/23/17 10:15 am - Patient Data Vitals - Most Recent: Last Vital Signs Temp 98.1 F 12/16/17 10:08 Pulse 84 12/16/17 07:36 Resp 16 12/16/17 07:36 BP 133/74 12/16/17 07:36 Pulse Ox 96 12/16/17 07:36 Weight - Most Recent: 201 lb 11.567 oz I&O - Last 24 hours: Intake & Output 12/16/17 12/16/17 12/16/17 06:59 14:59 22:59 Intake Total 1876 400 Output Total 900 Balance 976 400 Lab Results - Last 24 hrs: Laboratory Results - last 24 hr 12/16/17 12/16/17 Range/Units 06:09 06:09 WBC 6.05 (4.0-11.0) K/uL RBC 3.45 L (4.30-5.90) M/uL Hgb 10.3 L (12.0-16.0) g/dL Hct 31.4 L (36.0-46.0) % MCV 91.0 (80.0-98.0) fL MCH 29.9 (27.0-32.0) pg MCHC 32.8 (31.0-37.0) g/dL RDW Std Deviation 52.1 (28.0-62.0) fl RDW Coeff of Breanna 16 H (11.0-15.0) % Plt Count 189 (150-400) K/uL MPV 9.10 (7.40-12.00) fL Nucleated RBC % 0.0 /100WBC Nucleated RBCs # 0 K/uL Sodium 139 (136-145) mmol/L Potassium 3.4 L (3.5-5.1) mmol/L Chloride 104 (98-107) mmol/L Carbon Dioxide 29.8 (21.0-32.0) mmol/L BUN 14 (7.0-18.0) mg/dL Creatinine 0.6 (0.6-1.0) mg/dL Est Cr Clr Drug Dosing 85.76 mL/min Estimated GFR (MDRD) > 60.0 ml/min Glucose 112 H (74-106) mg/dL Calcium 8.6 (8.5-10.1) mg/dL Total Bilirubin 0.2 (0.2-1.0) mg/dL AST 28 (15-37) IU/L ALT 61 (14-63) IU/L Alkaline Phosphatase 54 (46-116) U/L Total Protein 6.4 (6.4-8.2) g/dL Albumin 3.3 L (3.4-5.0) g/dL Globulin 3.1 (2.0-3.5) g/dL Albumin/Globulin Ratio 1.1 L (1.3-2.8) FLORA Results - Last 24 hrs: Microbiology 12/15/17 21:45 Campylobacter Antigen Assay - Final Stool / Feces NEGATIVE CAMPYLOBACTER AG - Final NEGATIVE FOR SHIGA TOXIN 1 - Final NEGATIVE FOR SHIGA TOXIN 2 12/15/17 01:50 Aerobic Blood Culture - Preliminary Blood - Venous - Lab Draw Anaerobic Blood Culture - Preliminary 12/15/17 01:36 Aerobic Blood Culture - Preliminary Blood - Venous NO GROWTH AFTER 1 DAY Anaerobic Blood Culture - Preliminary NO GROWTH AFTER 1 DAY 12/15/17 21:45 Clostridium difficile Toxin A & B - Final Stool / Feces Positive C. Diff Antigen 12/15/17 21:45 Stool for WBCs - Final Stool / Feces POSITIVE FOR WBC'S Med Orders - Current: Current Medications Discontinued Medications Buspirone HCl (Buspar) 5 mg PO DAILY [facility] Last Admin: 12/16/17 10:03 Dose: 5 mg Enoxaparin Sodium (Lovenox) 40 mg SUBCUT ONETIME ONE Stop: 12/15/17 05:31 Last Admin: 12/15/17 06:03 Dose: Not Given Enoxaparin Sodium (Lovenox) 40 mg SUBCUT DAILY [facility] Enoxaparin Sodium (Lovenox) 40 mg SUBCUT DAILY [facility] Last Admin: 12/16/17 09:59 Dose: 40 mg Filgrastim (Neupogen) 300 mcg SUBCUT DAILY [facility] Last Admin: 12/15/17 18:02 Dose: Not Given Sodium Chloride (Normal Saline) 1,000 mls @ 999 mls/hr IV .Bolus ONE Stop: 12/15/17 02:19 Last Admin: 12/15/17 01:41 Dose: 999 mls/hr Ceftazidime 1 gm/ Dextrose/ (Water) 100 mls @ 200 mls/hr IV Q8H [facility] Last Admin: 12/15/17 03:58 Dose: Not Given Piperacillin Sod/Tazobactam (Sod 3.375 gm/ Sodium Chloride) 50 mls @ 100 mls/ hr IV ONETIME ONE Stop: 12/15/17 04:25 Last Admin: 12/15/17 04:03 Dose: 100 mls/hr Sodium Chloride (Normal Saline) 1,000 mls @ 100 mls/hr IV ASDIRECTED [facility] Last Admin: 12/16/17 10:04 Dose: 100 mls/hr Piperacillin Sod/Tazobactam (Sod 4.5 gm/ Sodium Chloride) 100 mls @ 100 mls/hr IV Q6H [facility] Last Admin: 12/15/17 11:39 Dose: 100 mls/hr Metronidazole 500 mg/ Premix 100 mls @ 100 mls/hr IV QID [facility] Last Admin: 12/16/17 05:09 Dose: 100 mls/hr Ciprofloxacin/Dextrose 400 mg/ (Premix) 200 mls @ 200 mls/hr IV Q12H [facility] Last Admin: 12/15/17 15:34 Dose: 200 mls/hr Ceftriaxone Sodium/Dextrose 1 (gm/ Premix) 50 mls @ 100 mls/hr IV Q24H [facility] Last Admin: 12/16/17 02:33 Dose: 100 mls/hr Vancomycin HCl 1.5 gm/ Sodium (Chloride) 500 mls @ 333.333 mls/hr IV Q12H [facility] Last Admin: 12/16/17 03:13 Dose: 333.333 mls/hr Lamotrigine (Lamotrigine) 100 mg PO DAILY [facility] Last Admin: 12/15/17 10:22 Dose: 100 mg Methylprednisolone Sodium Succinate (Solu-Medrol) 40 mg IVPUSH Q6H [facility] Stop: 12/15/17 20:00 Last Admin: 12/15/17 15:33 Dose: 40 mg Metronidazole (Metronidazole) 250 mg PO Q8H [facility] Morphine Sulfate (Morphine) 2 mg IVPUSH Q2H PRN PRN Reason: Pain Ondansetron HCl (Zofran) 4 mg IVPUSH ONETIME ONE Stop: 12/15/17 01:20 Last Admin: 12/15/17 01:41 Dose: 4 mg Ondansetron HCl (Zofran) 4 mg IVPUSH Q4H PRN PRN Reason: Nausea/Vomiting Potassium Chloride (Klor-Con M20) 40 meq PO ONETIME ONE Stop: 12/16/17 10:23 Last Admin: 12/16/17 10:58 Dose: 40 meq Sodium Chloride (Saline Flush) 2.5 ml FLUSH ASDIRECTED PRN PRN Reason: Keep Vein Open Sodium Chloride (Saline Flush) 10 ml FLUSH ASDIRECTED PRN PRN Reason: Keep Vein Open Sodium Chloride (Saline Flush) 2.5 ml FLUSH ASDIRECTED PRN PRN Reason: Keep Vein Open Tbo-Filgrastim (Granix) 300 mcg SUBCUT DAILY [facility] Last Admin: 12/16/17 09:58 Dose: Not Given Tramadol HCl (Ultram) 50 mg PO BEDTIME [facility] Last Admin: 12/15/17 20:14 Dose: 50 mg Trazodone HCl (Trazodone) 50 mg PO BEDTIME PRN PRN Reason: Insomnia Last Admin: 12/15/17 23:28 Dose: 50 mg Vancomycin HCl (Pharmacy To Dose - Vancomycin) 1 dose .XX ASDIRECTED [facility]
== END 2017-12-16 11:30 | disposition home or self-care (01) ==
LOC: MW.ED 00:49 → MW.MS 04:02
PROVIDERS: ADMIT Internal Medicine; ATTEND Internal Medicine
DX: A04.72 Enterocolitis due to Clostridium difficile, not specified as recurrent (principal); D72.819 Decreased white blood cell count, unspecified; C50.911 Malignant neoplasm of unspecified site of right female breast; F17.210 Nicotine dependence, cigarettes, uncomplicated; F41.9 Anxiety disorder, unspecified; Z79.2 Long term (current) use of antibiotics; Z79.899 Other long term (current) drug therapy; Z88.5 Allergy status to narcotic agent; Z92.21 Personal history of antineoplastic chemotherapy; Z92.3 Personal history of irradiation
CPT/HCPCS: 36415; 71045; 74176; 80053; 81001; 83630; 83690; 83735; 85025; 85027; 87040; 87046; 87086; 87088; 87186; 87324; 87338; 87899; 96361; 96365; 96366; 96367; 96372; 96375; 96376; 99285; A9270; G0378; J0696; J0744; J1447; J1650; J2405; J2543; J2920; J3370; J3490; J7030; J7040; J7050; 99283

== ENCOUNTER 2018-08-16 15:48 | Inpatient (IN) | payer BC ==
[2018-08-16] MEDS ORDERED: Sodium Chloride 0.9% 2.5 ML Syringe FLUSH PRN (15:52)
[2018-08-16] MEDS ORDERED: Sodium Chloride 0.9% 10 ML Syringe FLUSH PRN (15:52)
[2018-08-16] MEDS ORDERED: Sodium Chloride 0.9% 2,000 ML IV ONE (15:52)
[2018-08-16] MEDS ORDERED: Piperacillin/Tazobactam 3.375 GM in Sodium Chloride 0.9% 50 ML IV ONE (15:53)
--- NOTE | 2018-08-16 15:56 | EDM.PDOC ---
ED HPI GENERAL MEDICAL PROBLEM - General Stated Complaint: RT BREAST INFECTION Time Seen by Provider: 08/16/18 15:50 - History of Present Illness INITIAL COMMENTS - FREE TEXT/NARRATIVE: HISTORY AND PHYSICAL: History of present illness: Patient is a 53-year-old white female with extensive past medical history including breast cancer and recent right breast surgery was reported to have high fever and hypoxemia at home with decreased mental status. There is no reported vomiting or other concern. On arrival patient has somewhat somnolent she has move all extremities and is slow to respond but is verbal. She is protecting her airway Review of systems: As per history of present illness and below otherwise all systems reviewed and negative. Past medical history: As per history of present illness and as reviewed below otherwise noncontributory. Surgical history: As per history of present illness and as reviewed below otherwise noncontributory. Social history: No reported history of drug or alcohol abuse. Family history: As per history of present illness and as reviewed below otherwise noncontributory. Physical exam: HEENT: Atraumatic, normocephalic, pupils reactive, negative for conjunctival pallor or scleral icterus, mucous membranes moist, throat clear, neck supple, nontender, trachea midline. Lungs: Clear to auscultation, breath sounds equal bilaterally, chest with right lateral wound noted from recent breast surgery that is warm indurated erythematous and tender to palpation. Heart: S1S2, regular, negative for clicks, rubs, or JVD. Abdomen: Soft, nondistended, nontender. Negative for masses or hepatosplenomegaly. Negative for costovertebral tenderness. Pelvis: Stable nontender. 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: Deferred. Rectal: Deferred. Extremities: Atraumatic, negative for cords or calf pain. Neurovascular unremarkable. Neuro: Awake, somnolent follows commands and was A SMALL AMOUNT OF GROSSLY NONFOCAL EXAM Diagnostics: CBC CMP UA blood cultures [address] chest abdomen pelvis Therapeutics: Saline 2 L bolus vancomycin 1 g IV Zosyn 3.375 g IV Impression: #1 sepsis #2 history of breast cancer Definitive disposition and diagnosis as appropriate pending reevaluation and review of above. - Related Data Allergies Allergy/AdvReac Type Severity Reaction Status Date / Time hydrocodone Allergy Itching Verified 08/16/18 16:08 Home Meds: Home Meds busPIRone HCl [Buspirone HCl] 5 mg PO DAILY 08/03/17 [History] traMADol [Ultram] 1 tab PO BEDTIME 12/15/17 [History] traZODone HCl [Trazodone HCl] 0 mg PO ASDIRECTED PRN 12/15/17 [History] metroNIDAZOLE [Flagyl] 500 mg PO TID #54 tab 12/16/17 [Rx] Past Medical History HEENT History: Reports: Allergic Rhinitis, Impaired Vision Other HEENT History: wears glasses Cardiovascular History: Reports: None Respiratory History: Reports: None, Other (See Below) Gastrointestinal History: Reports: None 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: Reports: None 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: Musculoskeletal History: Reports: Fracture Other Musculoskeletal History: hx of fx right foot and ankle Neurological History: Reports: None Psychiatric History: Reports: Depression Endocrine/Metabolic History: Reports: None Hematologic History: Reports: None Immunologic History: Reports: None Oncologic (Cancer) History: Reports: Breast, Malignant Melanoma Other Oncologic History: on face, no treatment after removal Dermatologic History: Reports: None - Infectious Disease History Infectious Disease History: Reports: None - Past Surgical History Head Surgeries/Procedures: Reports: None HEENT Surgical History: Reports: None Cardiovascular Surgical History: Reports: None Respiratory Surgical History: Reports: None GI Surgical History: Reports: Hernia, Abdominal Female Surgical History: Reports: Breast Biopsy, Other (See Below) Other Female Surgeries/Procedures: right lumpectomy and lymphadectomy Endocrine Surgical History: Reports: None Neurological Surgical History: Reports: Other (See Below) Other Neurological Surgeries/Procedures: spinale surgery Musculoskeletal Surgical History: Reports: ORIF, Other (See Below) Oncologic Surgical History: Reports: Biopsy of Breast, Lumpectomy Dermatological Surgical History: Reports: None Social & Family History - Family History Family Medical History: Noncontributory Cardiac: Reports: None - Caffeine Use Caffeine Use: Reports: Coffee Other Caffeine Use: 3 cups per day Caffeine Use Comment: 3cups /day ED ROS GENERAL - Review of Systems Review Of Systems: ROS reveals no pertinent complaints other than HPI. ED EXAM, GENERAL - Physical Exam Exam: See Below (See dictation) Course - Vital Signs Last Recorded V/S: Last Vital Signs Temp 38.5 C H 08/16/18 17:27 Pulse 109 H 08/16/18 17:27 Resp 22 H 08/16/18 17:27 BP 127/57 L 08/16/18 17:27 Pulse Ox 96 08/16/18 17:27 - Orders/Labs/Meds Orders: Active Orders 24 hr Category Date Time Status Cardiac Monitoring [RC] . DIRECTED Care 08/16/18 15:50 Active EKG Documentation Completion [RC] STAT Care 08/16/18 15:50 Active Oxygen Therapy, ED [RC] ASDIRECTED Care 08/16/18 15:50 Active CULTURE BLOOD [BC] Stat Lab 08/16/18 15:54 Received CULTURE BLOOD [BC] Stat Lab 08/16/18 15:54 Received CULTURE URINE [RM] Stat Lab 08/16/18 17:10 Received Sodium Chloride 0.9% [Saline Flush] Med 08/16/18 15:52 Active 10 ml FLUSH ASDIRECTED PRN Sodium Chloride 0.9% [Saline Flush] Med 08/16/18 15:52 Active 2.5 ml FLUSH ASDIRECTED PRN Blood Culture x2 Reflex Set [OM.PC] Stat Oth 08/16/18 15:51 Ordered Saline Lock Insert [OM.PC] Stat Oth 08/16/18 15:50 Ordered Medication Orders Sodium Chloride (Saline Flush) 10 ml FLUSH ASDIRECTED PRN PRN Reason: Keep Vein Open Sodium Chloride (Saline Flush) 2.5 ml FLUSH ASDIRECTED PRN PRN Reason: Keep Vein Open Labs: Laboratory Tests 08/16/18 08/16/18 08/16/18 Range/Units 15:54 15:54 15:54 WBC 13.04 H (4.0-11.0) K/uL RBC 4.72 (4.30-5.90) M/uL Hgb 13.9 (12.0-16.0) g/dL Hct 41.2 (36.0-46.0) % MCV 87.3 (80.0-98.0) fL MCH 29.4 (27.0-32.0) pg MCHC 33.7 (31.0-37.0) g/dL RDW Std Deviation 42.8 (28.0-62.0) fl RDW Coeff of Breanna 13 (11.0-15.0) % Plt Count 250 (150-400) K/uL MPV 8.50 (7.40-12.00) fL Neut % (Auto) 85.1 H (48.0-80.0) % Lymph % (Auto) 6.3 L (16.0-40.0) % Bee % (Auto) 8.1 (0.0-15.0) % Eos % (Auto) 0.3 (0.0-7.0) % Baso % (Auto) 0.2 (0.0-1.5) % Neut # (Auto) 11.1 H (1.4-5.7) K/uL Lymph # (Auto) 0.8 (0.6-2.4) K/uL Bee # (Auto) 1.1 H (0.0-0.8) K/uL Eos # (Auto) 0.0 (0.0-0.7) K/uL Baso # (Auto) 0.0 (0.0-0.1) K/uL Nucleated RBC % 0.0 /100WBC Nucleated RBCs # 0 K/uL INR 1.00 ABG pH (7.35-7.45) ABG pCO2 (35-45) mmHG ABG pO2 (75-100) mmHG ABG HCO3 (22-26) mEq/L ABG Total CO2 ABG Base Excess (-2.0-2.0) Lactate (0.20-2.00) mmol/L Sodium 135 L (136-145) mmol/L Potassium 3.8 (3.5-5.1) mmol/L Chloride 98 (98-107) mmol/L Carbon Dioxide 24.1 (21.0-32.0) mmol/L BUN 15 (7.0-18.0) mg/dL Creatinine 0.9 (0.6-1.0) mg/dL Est Cr Clr Drug Dosing 66.90 mL/min Estimated GFR (MDRD) > 60.0 ml/min Glucose 109 H (74-106) mg/dL Calcium 8.9 (8.5-10.1) mg/dL Total Bilirubin 0.7 (0.2-1.0) mg/dL AST 11 L (15-37) IU/L ALT 17 (14-63) IU/L Alkaline Phosphatase 77 (46-116) U/L Total Protein 7.5 (6.4-8.2) g/dL Albumin 3.9 (3.4-5.0) g/dL Globulin 3.6 (2.6-4.0) g/dL Albumin/Globulin Ratio 1.1 (0.9-1.6) Urine Color Urine Appearance Urine pH (5.0-8.0) Ur Specific [place] (1.001-1.035) Urine Protein (NEGATIVE) mg/dL Urine Glucose (UA) (NEGATIVE) mg/dL Urine Ketones (NEGATIVE) mg/dL Urine Occult Blood (NEGATIVE) Urine Nitrite (NEGATIVE) Urine Bilirubin (NEGATIVE) Urine Urobilinogen (<2.0) EU/dL Ur Leukocyte Esterase (NEGATIVE) Urine RBC (0-2/HPF) Urine WBC (0-5/HPF) Ur Epithelial Cells (NONE-FEW) Urine Bacteria (NEGATIVE) 08/16/18 08/16/18 08/16/18 Range/Units 15:54 16:40 17:10 WBC (4.0-11.0) K/uL RBC (4.30-5.90) M/uL Hgb (12.0-16.0) g/dL Hct (36.0-46.0) % MCV (80.0-98.0) fL MCH (27.0-32.0) pg MCHC (31.0-37.0) g/dL RDW Std Deviation (28.0-62.0) fl RDW Coeff of Breanna (11.0-15.0) % Plt Count (150-400) K/uL MPV (7.40-12.00) fL Neut % (Auto) (48.0-80.0) % Lymph % (Auto) (16.0-40.0) % Bee % (Auto) (0.0-15.0) % Eos % (Auto) (0.0-7.0) % Baso % (Auto) (0.0-1.5) % Neut # (Auto) (1.4-5.7) K/uL Lymph # (Auto) (0.6-2.4) K/uL Bee # (Auto) (0.0-0.8) K/uL Eos # (Auto) (0.0-0.7) K/uL Baso # (Auto) (0.0-0.1) K/uL Nucleated RBC % /100WBC Nucleated RBCs # K/uL INR ABG pH 7.422 (7.35-7.45) ABG pCO2 34 L (35-45) mmHG ABG pO2 68 L (75-100) mmHG ABG HCO3 22 (22-26) mEq/L ABG Total CO2 20.1 ABG Base Excess -1.6 (-2.0-2.0) Lactate 1.0 (0.20-2.00) mmol/L Sodium (136-145) mmol/L Potassium (3.5-5.1) mmol/L Chloride (98-107) mmol/L Carbon Dioxide (21.0-32.0) mmol/L BUN (7.0-18.0) mg/dL Creatinine (0.6-1.0) mg/dL Est Cr Clr Drug Dosing mL/min Estimated GFR (MDRD) ml/min Glucose (74-106) mg/dL Calcium (8.5-10.1) mg/dL Total Bilirubin (0.2-1.0) mg/dL AST (15-37) IU/L ALT (14-63) IU/L Alkaline Phosphatase (46-116) U/L Total Protein (6.4-8.2) g/dL Albumin (3.4-5.0) g/dL Globulin (2.6-4.0) g/dL Albumin/Globulin Ratio (0.9-1.6) Urine Color YELLOW Urine Appearance HAZY Urine pH 5.5 (5.0-8.0) Ur Specific [place] >= 1.030 (1.001-1.035) Urine Protein NEGATIVE (NEGATIVE) mg/dL Urine Glucose (UA) NEGATIVE (NEGATIVE) mg/dL Urine Ketones NEGATIVE (NEGATIVE) mg/dL Urine Occult Blood TRACE-INTACT H (NEGATIVE) Urine Nitrite NEGATIVE (NEGATIVE) Urine Bilirubin NEGATIVE (NEGATIVE) Urine Urobilinogen 0.2 (<2.0) EU/dL Ur Leukocyte Esterase TRACE H (NEGATIVE) Urine RBC 1-2 (0-2/HPF) Urine WBC 1-3 (0-5/HPF) Ur Epithelial Cells FEW (NONE-FEW) Urine Bacteria FEW (NEGATIVE) Meds: Medications Generic Name Dose Route Start Last Admin Trade Name Freq PRN Reason Stop Dose Admin Sodium Chloride 10 ml 08/16/18 15:52 Saline Flush FLUSH ASDIRECTED PRN Keep Vein Open Sodium Chloride 2.5 ml 08/16/18 15:52 Saline Flush FLUSH ASDIRECTED PRN Keep Vein Open Discontinued Medications Generic Name Dose Route Start Last Admin Trade Name Jose PRN Reason Stop Dose Admin Piperacillin Sod/Tazobactam 50 mls @ 100 mls/hr 08/16/18 15:53 08/16/18 17:43 Sod 3.375 gm/ Sodium Chloride IV 08/16/18 16:22 100 mls/hr ONETIME ONE Administration Sodium Chloride 2,000 mls @ 999 mls/hr 08/16/18 15:52 08/16/18 16:10 Normal Saline IV 08/16/18 17:52 999 mls/hr STAT ONE Administration Vancomycin HCl 1 gm/ Sodium 250 mls @ 250 mls/hr 08/16/18 15:52 08/16/18 16: 10 Chloride IV 08/16/18 16:51 250 mls/hr ONETIME ONE Administration Iopamidol 100 ml 08/16/18 17:32 08/16/18 17:32 Isovue-370 (76%) IVPUSH 08/16/18 17:33 100 ml ONETIME ONE Administration Departure - Departure Time of Disposition: 18:30 Disposition: Admitted As Inpatient 65 Condition: Fair Clinical Impression: Cellulitis, Postoperative abscess - Discharge Information - My Orders Last 24 Hours: My Active Orders 08/16/18 15:50 Cardiac Monitoring [RC] . DIRECTED EKG Documentation Completion [RC] STAT Oxygen Therapy, ED [RC] ASDIRECTED Saline Lock Insert [OM.PC] Stat 08/16/18 15:51 Blood Culture x2 Reflex Set [OM.PC] Stat 08/16/18 15:52 Sodium Chloride 0.9% [Saline Flush] 10 ml FLUSH ASDIRECTED PRN Sodium Chloride 0.9% [Saline Flush] 2.5 ml FLUSH ASDIRECTED PRN 08/16/18 15:54 CULTURE BLOOD [BC] Stat CULTURE BLOOD [BC] Stat 08/16/18 17:10 CULTURE URINE [RM] Stat - Assessment/Plan Last 24 Hours: My Active Orders 08/16/18 15:50 Cardiac Monitoring [RC] . DIRECTED EKG Documentation Completion [RC] STAT Oxygen Therapy, ED [RC] ASDIRECTED Saline Lock Insert [OM.PC] Stat 08/16/18 15:51 Blood Culture x2 Reflex Set [OM.PC] Stat 08/16/18 15:52 Sodium Chloride 0.9% [Saline Flush] 10 ml FLUSH ASDIRECTED PRN Sodium Chloride 0.9% [Saline Flush] 2.5 ml FLUSH ASDIRECTED PRN 08/16/18 15:54 CULTURE BLOOD [BC] Stat CULTURE BLOOD [BC] Stat 08/16/18 17:10 CULTURE URINE [RM] Stat
[2018-08-16 16:35] LABS: CHLORIDE,CL 98 mmol/L (98-107); SODIUM,NA 135 mmol/L (136-145)
[2018-08-16] MEDS ORDERED: Iopamidol 755 Mg/ML 100 ML Bottle IVPUSH ONE (17:32)
--- NOTE | 2018-08-16 18:04 | CT ---
TECHNIQUE: IV contrast-enhanced CT chest. 100 mL Isovue-370 injected. INDICATIONS: Chest pain and shortness of breath, history of breast cancer. COMPARISON: 01/16/[address] FINDINGS: Diffuse enlargement of the right breast with skin thickening and edema in the breast tissue. Edema extends along the right pectoralis muscle to the level of the clavicle. 5 cm low-density area in the upper outer quadrant/axillary tail on image 35 of series 201. Differential considerations include abscess with diffuse cellulitis, seroma and postradiation change, less likely inflammatory breast cancer. No adenopathy. Breathing motion artifact in the lungs. Right basilar atelectasis. No focal pulmonary consolidation. Subtle, 4 mm pulmonary nodule in the right middle lobe image 57 series 23 was present previously and is unchanged. No other nodules identified. No pleural or pericardial effusions. Left-sided Port-A-Cath. IMPRESSION: 1. 5 cm fluid collection/low-density mass in the upper outer quadrant/axillary tail of the right breast with extensive edematous change in the right breast. Findings favor infection with abscess versus marked postradiation change and seroma. Inflammatory breast cancer also possible but felt to be less likely. Correlation with the clinical scenario recommended. Consider breast ultrasound and, if tolerated diagnostic mammography. 2. Stable 4 mm right middle lobe pulmonary nodule. Please note that all CT scans at this facility use dose modulation, iterative reconstruction, and/or weight-based dosing when appropriate to reduce radiation dose to as low as reasonably achievable. Dictated by Dexter Orellana MD @ Aug 16 2018 5:53PM (Electronically Signed)
--- NOTE | 2018-08-16 18:10 | CT ---
TECHNIQUE: IV contrast-enhanced CT abdomen and pelvis. 100 mL Isovue-370 injected. INDICATIONS: Pain and shortness of breath, history of breast cancer. COMPARISON: Chest CT of the same day. FINDINGS: Extensive inflammatory change in the right breast is discussed in detail on the report of the chest CT of same day. Liver, pancreas, adrenal glands are normal. 1 cm low attenuation area in the medial spleen on image 27 of series 301 is nonspecific but most likely benign. Small cysts in the kidneys. Kidneys otherwise normal. Gallbladder and biliary tree are unremarkable. A fat containing hernia arises just to the right of the umbilicus. The hernia sac measures 5.7 cm. The neck measures 1.8 cm. Mild colonic diverticulosis without diverticulitis. No evidence for bowel obstruction. Uterus and adnexa are unremarkable. No adenopathy, free air or free fluid. IMPRESSION: 1. No acute findings in the abdomen or pelvis. 2. Extensive right breast inflammatory change, discussed on the chest CT of the same day. 3. Fat containing right periumbilical hernia. Dictated by Dexter Orellana MD @ 08/16/2018 6:08:11 PM Dictated by: Dexter Orellana MD @ 08/16/2018 18:08:15 (Electronically Signed)
[2018-08-16] MEDS ORDERED: Sodium Chloride 0.9% 1,000 ML IV ONE (18:30)
[2018-08-16] MEDS ORDERED: Ibuprofen 400 MG Tab PO ONE (18:30)
[2018-08-16] MEDS: Sodium Chloride 0.9% 1,000 ML IV SCH (20:20)
[2018-08-16] MEDS ORDERED: Morphine 2 MG/ML Syringe IVPUSH PRN (21:01)
[2018-08-16] MEDS ORDERED: Temazepam 15 MG Cap PO PRN (21:02)
--- NOTE | 2018-08-16 22:16 | PCM.SN ---
- Free Text/Narrative Note: pt seen, chart reviewed; pod#6 for R breast incision, drainage, bx, now presented with collection; agree w start on abx; likely would return to original surgeon for more incision and drainage; pt remarked she has an appointment coming week; for the time being; would like to request her op not/ hospitalization note/path report; [id number]
[2018-08-16] MEDS: Vancomycin 1.5 GM in Sodium Chloride 0.9% 500 ML IV SCH (22:34)
[2018-08-16] MEDS: Acetaminophen 325 MG Tab PO PRN (22:42)
[2018-08-17 06:51] LABS: CHLORIDE,CL 104 mmol/L (98-107); SODIUM,NA 140 mmol/L (136-145)
--- NOTE | 2018-08-17 07:22 | PCM.HP ---
H&P History of Present Illness - General Date of Service: 08/17/18 Admit Problem/Dx: Admission Diagnosis/Problem Admission Diagnosis/Problem Cellulitis Source of Information: Patient History Limitations: Reports: No Limitations - History of Present Illness Initial Comments - Free Text/Narative: The patient is a 53-year-old lady who is presented to the emergency department with the chief complaint of high fever and confusion reported by her family. The patient has a history of breast cancer to her right breast last year and one week ago the patient had surgery to her right breast with lump removal and over the past couple of days she started to develop pain, tenderness and swelling with heat and a right breast. Patient also reportedly had a fever of 103 at home. The patient also has undergone chemotherapy for breast cancer. Oncology medical records not available. Patient does have pain and tenderness to her right breast and she is also been evaluated by general surgeon through the emergency department. The patient has denied any dizziness or lightheadedness. She has no other complaints at present. Onset of Symptoms: Reports: Gradual Duration of Symptoms: Reports: Day(s): Location: Reports: Chest Quality: Reports: Ache, Stabbing Severity: Moderate Improves with: Reports: None Worsens with: Reports: None Associated Symptoms: Reports: Other (Breast cancer surgery) - Related Data Allergies/Adverse Reactions: Allergies Allergy/AdvReac Type Severity Reaction Status Date / Time hydrocodone Allergy Itching Verified 08/16/18 16:08 Home Medications: Home Meds busPIRone HCl [Buspirone HCl] 5 mg PO DAILY 08/03/17 [History] traMADol [Ultram] 1 tab PO BEDTIME 12/15/17 [History] traZODone HCl [Trazodone HCl] 0 mg PO ASDIRECTED PRN 12/15/17 [History] metroNIDAZOLE [Flagyl] 500 mg PO TID #54 tab 12/16/17 [Rx] Past Medical History HEENT History: Reports: Allergic Rhinitis, Impaired Vision Other HEENT History: wears glasses Cardiovascular History: Reports: None Respiratory History: Reports: None, Other (See Below) Gastrointestinal History: Reports: None 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: Reports: None [employer]ITE [employer]ATEGIST History: Reports: Musculoskeletal History: Reports: Fracture Other Musculoskeletal History: hx of fx right foot and ankle Neurological History: Reports: None Psychiatric History: Reports: Depression Endocrine/Metabolic History: Reports: None Hematologic History: Reports: None Immunologic History: Reports: None Oncologic (Cancer) History: Reports: Breast, Malignant Melanoma Other Oncologic History: on face, no treatment after removal Dermatologic History: Reports: None - Infectious Disease History Infectious Disease History: Reports: None - Past Surgical History Head Surgeries/Procedures: Reports: None HEENT Surgical History: Reports: None Cardiovascular Surgical History: Reports: None Respiratory Surgical History: Reports: None GI Surgical History: Reports: Hernia, Abdominal Female Surgical History: Reports: Breast Biopsy, Other (See Below) Other Female Surgeries/Procedures: right lumpectomy and lymphadectomy Endocrine Surgical History: Reports: None Neurological Surgical History: Reports: Other (See Below) Other Neurological Surgeries/Procedures: spinale surgery Musculoskeletal Surgical History: Reports: ORIF, Other (See Below) Oncologic Surgical History: Reports: Biopsy of Breast, Lumpectomy Dermatological Surgical History: Reports: None Social & Family History - Family History Family Medical History: Noncontributory Cardiac: Reports: None - Tobacco Use Smoking Status *Q: Former Smoker Years of Tobacco use: 10 Used Tobacco, but Quit: Yes Month/Year Tobacco Last Used: 6 months ago Second Hand Smoke Exposure: No - Caffeine Use Caffeine Use: Reports: Coffee Other Caffeine Use: 3 cups per day Caffeine Use Comment: couple cups a day - Recreational Drug Use Recreational Drug Use: No H&P Review of Systems - Review of Systems: Review Of Systems: See Below General: Reports: Fever, Chills, Weakness HEENT: Reports: No Symptoms Pulmonary: Reports: No Symptoms Cardiovascular: Reports: No Symptoms Gastrointestinal: Reports: No Symptoms 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: Reports: No Symptoms Musculoskeletal: Reports: No Symptoms Skin: Reports: Wound (Right breast), Change in Color Psychiatric: Reports: No Symptoms Neurological: Reports: No Symptoms Hematologic/Lymphatic: Reports: No Symptoms Immunologic: Reports: No Symptoms Exam - Exam Exam: See Below - Vital Signs Vital Signs: Last Vital Signs Temp 38.6 C H 08/16/18 22:42 Pulse 98 08/16/18 19:55 Resp 18 08/16/18 19:55 BP 103/56 L 08/16/18 19:55 Pulse Ox 95 08/16/18 19:55 Weight: 120.202 kg - Exam Quality Assessment: No: Supplemental Oxygen General: Alert, Oriented, Cooperative, Mild Distress HEENT: Conjunctiva Clear, EACs Clear, EOMI, Mucosa Moist & [place], PERRLA Neck: Supple, Trachea Midline Lungs: Clear to Auscultation, Normal Respiratory Effort Cardiovascular: Regular Rate, Regular Rhythm GI/Abdominal Exam: Normal Bowel Sounds, Soft, Non-Tender, No Distention (Female) Exam: Deferred Rectal (Female) Exam: Deferred Back Exam: Normal Inspection Extremities: Normal Inspection, No Pedal Edema Skin: Incision (Right lateral breast), Other (Area of induration, erythema lateral upper right breast with sutures in incision) Neurological: Cranial Nerves Intact Neuro Extensive - Mental Status: Alert Neuro Extensive - Motor, Sensory, Reflexes: CN II-XII Intact Psychiatric: Alert, Normal Affect - Patient Data Lab Results Last 24 hrs: Laboratory Results - last 24 hr 08/16/18 08/16/18 08/16/18 Range/Units 15:54 15:54 15:54 WBC 13.04 H (4.0-11.0) K/uL RBC 4.72 (4.30-5.90) M/uL Hgb 13.9 (12.0-16.0) g/dL Hct 41.2 (36.0-46.0) % MCV 87.3 (80.0-98.0) fL MCH 29.4 (27.0-32.0) pg MCHC 33.7 (31.0-37.0) g/dL RDW Std Deviation 42.8 (28.0-62.0) fl RDW Coeff of Breanna 13 (11.0-15.0) % Plt Count 250 (150-400) K/uL MPV 8.50 (7.40-12.00) fL Neut % (Auto) 85.1 H (48.0-80.0) % Lymph % (Auto) 6.3 L (16.0-40.0) % [place] % (Auto) 8.1 (0.0-15.0) % Eos % (Auto) 0.3 (0.0-7.0) % Baso % (Auto) 0.2 (0.0-1.5) % Neut # (Auto) 11.1 H (1.4-5.7) K/uL Lymph # (Auto) 0.8 (0.6-2.4) K/uL [place] # (Auto) 1.1 H (0.0-0.8) K/uL Eos # (Auto) 0.0 (0.0-0.7) K/uL Baso # (Auto) 0.0 (0.0-0.1) K/uL Nucleated RBC % 0.0 /100WBC Nucleated RBCs # 0 K/uL INR 1.00 ABG pH (7.35-7.45) ABG pCO2 (35-45) mmHG ABG pO2 (75-100) mmHG ABG HCO3 (22-26) mEq/L ABG Total CO2 ABG Base Excess (-2.0-2.0) Lactate (0.20-2.00) mmol/L Sodium 135 L (136-145) mmol/L Potassium 3.8 (3.5-5.1) mmol/L Chloride 98 (98-107) mmol/L Carbon Dioxide 24.1 (21.0-32.0) mmol/L BUN 15 (7.0-18.0) mg/dL Creatinine 0.9 (0.6-1.0) mg/dL Est Cr Clr Drug Dosing 66.90 mL/min Estimated GFR (MDRD) > 60.0 ml/min Glucose 109 H (74-106) mg/dL Calcium 8.9 (8.5-10.1) mg/dL Total Bilirubin 0.7 (0.2-1.0) mg/dL AST 11 L (15-37) IU/L ALT 17 (14-63) IU/L Alkaline Phosphatase 77 (46-116) U/L Total Protein 7.5 (6.4-8.2) g/dL Albumin 3.9 (3.4-5.0) g/dL Globulin 3.6 (2.6-4.0) g/dL Albumin/Globulin Ratio 1.1 (0.9-1.6) Urine Color Urine Appearance Urine pH (5.0-8.0) Ur Specific Mcdav[place] (1.001-1.035) Urine Protein (NEGATIVE) mg/dL Urine Glucose (UA) (NEGATIVE) mg/dL Urine Ketones (NEGATIVE) mg/dL Urine Occult Blood (NEGATIVE) Urine Nitrite (NEGATIVE) Urine Bilirubin (NEGATIVE) Urine Urobilinogen (<2.0) EU/dL Ur Leukocyte Esterase (NEGATIVE) Urine RBC (0-2/HPF) Urine WBC (0-5/HPF) Ur Epithelial Cells (NONE-FEW) Urine Bacteria (NEGATIVE) 08/16/18 08/16/18 08/16/18 Range/Units 15:54 16:40 17:10 WBC (4.0-11.0) K/uL RBC (4.30-5.90) M/uL Hgb (12.0-16.0) g/dL Hct (36.0-46.0) % MCV (80.0-98.0) fL MCH (27.0-32.0) pg MCHC (31.0-37.0) g/dL RDW Std Deviation (28.0-62.0) fl RDW Coeff of Breanna (11.0-15.0) % Plt Count (150-400) K/uL MPV (7.40-12.00) fL Neut % (Auto) (48.0-80.0) % Lymph % (Auto) (16.0-40.0) % [place] % (Auto) (0.0-15.0) % Eos % (Auto) (0.0-7.0) % Baso % (Auto) (0.0-1.5) % Neut # (Auto) (1.4-5.7) K/uL Lymph # (Auto) (0.6-2.4) K/uL [place] # (Auto) (0.0-0.8) K/uL Eos # (Auto) (0.0-0.7) K/uL Baso # (Auto) (0.0-0.1) K/uL Nucleated RBC % /100WBC Nucleated RBCs # K/uL INR ABG pH 7.422 (7.35-7.45) ABG pCO2 34 L (35-45) mmHG ABG pO2 68 L (75-100) mmHG ABG HCO3 22 (22-26) mEq/L ABG Total CO2 20.1 ABG Base Excess -1.6 (-2.0-2.0) Lactate 1.0 (0.20-2.00) mmol/L Sodium (136-145) mmol/L Potassium (3.5-5.1) mmol/L Chloride (98-107) mmol/L Carbon Dioxide (21.0-32.0) mmol/L BUN (7.0-18.0) mg/dL Creatinine (0.6-1.0) mg/dL Est Cr Clr Drug Dosing mL/min Estimated GFR (MDRD) ml/min Glucose (74-106) mg/dL Calcium (8.5-10.1) mg/dL Total Bilirubin (0.2-1.0) mg/dL AST (15-37) IU/L ALT (14-63) IU/L Alkaline Phosphatase (46-116) U/L Total Protein (6.4-8.2) g/dL Albumin (3.4-5.0) g/dL Globulin (2.6-4.0) g/dL Albumin/Globulin Ratio (0.9-1.6) Urine Color YELLOW Urine Appearance HAZY Urine pH 5.5 (5.0-8.0) Ur Specific [place] >= 1.030 (1.001-1.035) Urine Protein NEGATIVE (NEGATIVE) mg/dL Urine Glucose (UA) NEGATIVE (NEGATIVE) mg/dL Urine Ketones NEGATIVE (NEGATIVE) mg/dL Urine Occult Blood TRACE-INTACT H (NEGATIVE) Urine Nitrite NEGATIVE (NEGATIVE) Urine Bilirubin NEGATIVE (NEGATIVE) Urine Urobilinogen 0.2 (<2.0) EU/dL Ur Leukocyte Esterase TRACE H (NEGATIVE) Urine RBC 1-2 (0-2/HPF) Urine WBC 1-3 (0-5/HPF) Ur Epithelial Cells FEW (NONE-FEW) Urine Bacteria FEW (NEGATIVE) 08/17/18 08/17/18 Range/Units 06:26 06:26 WBC 15.83 H (4.0-11.0) K/uL RBC 4.07 L (4.30-5.90) M/uL Hgb 11.9 L (12.0-16.0) g/dL Hct 35.6 L (36.0-46.0) % MCV 87.5 (80.0-98.0) fL MCH 29.2 (27.0-32.0) pg MCHC 33.4 (31.0-37.0) g/dL RDW Std Deviation 43.2 (28.0-62.0) fl RDW Coeff of Breanna 13 (11.0-15.0) % Plt Count 192 (150-400) K/uL MPV 8.40 (7.40-12.00) fL Neut % (Auto) 86.1 H (48.0-80.0) % Lymph % (Auto) 4.4 L (16.0-40.0) % [place] % (Auto) 9.3 (0.0-15.0) % Eos % (Auto) 0.1 (0.0-7.0) % Baso % (Auto) 0.1 (0.0-1.5) % Neut # (Auto) 13.6 H (1.4-5.7) K/uL Lymph # (Auto) 0.7 (0.6-2.4) K/uL [place] # (Auto) 1.5 H (0.0-0.8) K/uL Eos # (Auto) 0.0 (0.0-0.7) K/uL Baso # (Auto) 0.0 (0.0-0.1) K/uL Nucleated RBC % 0.0 /100WBC Nucleated RBCs # 0 K/uL INR ABG pH (7.35-7.45) ABG pCO2 (35-45) mmHG ABG pO2 (75-100) mmHG ABG HCO3 (22-26) mEq/L ABG Total CO2 ABG Base Excess (-2.0-2.0) Lactate (0.20-2.00) mmol/L Sodium 140 (136-145) mmol/L Potassium 3.0 L (3.5-5.1) mmol/L Chloride 104 (98-107) mmol/L Carbon Dioxide 22.6 (21.0-32.0) mmol/L BUN 13 (7.0-18.0) mg/dL Creatinine 0.8 (0.6-1.0) mg/dL Est Cr Clr Drug Dosing 63.58 mL/min Estimated GFR (MDRD) > 60.0 ml/min Glucose 105 (74-106) mg/dL Calcium 8.1 L (8.5-10.1) mg/dL Total Bilirubin (0.2-1.0) mg/dL AST (15-37) IU/L ALT (14-63) IU/L Alkaline Phosphatase (46-116) U/L Total Protein (6.4-8.2) g/dL Albumin (3.4-5.0) g/dL Globulin (2.6-4.0) g/dL Albumin/Globulin Ratio (0.9-1.6) Urine Color Urine Appearance Urine pH (5.0-8.0) Ur Specific [place] (1.001-1.035) Urine Protein (NEGATIVE) mg/dL Urine Glucose (UA) (NEGATIVE) mg/dL Urine Ketones (NEGATIVE) mg/dL Urine Occult Blood (NEGATIVE) Urine Nitrite (NEGATIVE) Urine Bilirubin (NEGATIVE) Urine Urobilinogen (<2.0) EU/dL Ur Leukocyte Esterase (NEGATIVE) Urine RBC (0-2/HPF) Urine WBC (0-5/HPF) Ur Epithelial Cells (NONE-FEW) Urine Bacteria (NEGATIVE) Result Diagrams: 08/17/18 06:26 08/17/18 06:26 - Problem List (1) Cellulitis SNOMED Code(s): 537557806 ICD Code: L03.90 - CELLULITIS, UNSPECIFIED Status: Acute Priority: High Current Visit: Yes Problem Details: Right lateral breast Qualifiers: Site of cellulitis: other site Qualified Code(s): L03.818 - Cellulitis of other sites (2) Postoperative abscess SNOMED Code(s): 851316797, 400276588 ICD Code: T81.49XA - INFECTION FOLLOWING A PROCEDURE, OTHER SURGICAL SITE, INIT Status: Acute Priority: High Current Visit: Yes (3) History of chemotherapy SNOMED Code(s): 732954478706077, 975575663686531 ICD Code: Z92.21 - PERSONAL HISTORY OF ANTINEOPLASTIC CHEMOTHERAPY Status: Acute Priority: Medium Current Visit: Yes (4) Breast cancer, right breast SNOMED Code(s): 932993735 ICD Code: C50.911 - MALIGNANT NEOPLASM OF UNSP SITE OF RIGHT FEMALE BREAST Status: Chronic Priority: Medium Current Visit: Yes Qualifiers: Breast location: unspecified site of breast Estrogen receptor status: positive Patient sex: female Qualified Code(s): C50.911 - Malignant neoplasm of unspecified site of right female breast; Z17.0 - Estrogen receptor positive status [ER+]; Z17.0 - Estrogen receptor positive status [ER+] Problem List Initiated/Reviewed/Updated: Yes Orders Last 24hrs: Active Orders 24 hr Category Date Time Status Patient Status [ADT] Stat ADT 08/16/18 18:31 Active Cardiac Monitoring [RC] . DIRECTED Care 08/16/18 15:50 Active EKG 12 Lead [EKG Documentation Completion] [RC] STAT Care 08/16/18 23:12 Active EKG Documentation Completion [RC] STAT Care 08/16/18 15:50 Active Notify Provider Consults [RC] ASDIRECTED Care 08/16/18 18:33 Active Oxygen Therapy, ED [RC] ASDIRECTED Care 08/16/18 15:50 Active Consult to Physician [CONS] Stat Cons 08/16/18 18:32 Active Regular Diet [DIET] Diet 08/16/18 Dinner Active CULTURE BLOOD [BC] Stat Lab 08/16/18 15:54 Received CULTURE BLOOD [BC] Stat Lab 08/16/18 15:54 Received CULTURE URINE [RM] Stat Lab 08/16/18 17:10 Received CULTURE WOUND [RM] Routine Lab 08/16/18 21:40 Ordered VANCOMYCIN TROUGH [CHEM] Timed Lab 08/18/18 10:00 Ordered Acetaminophen [Tylenol] Med 08/16/18 20:59 Active 650 mg PO Q4H PRN Morphine Med 08/16/18 21:01 Active 2 mg IVPUSH Q3H PRN Pharmacy to Dose - Vancomycin Med 08/16/18 21:00 Pending 1 dose .XX ASDIRECTED Sodium Chloride 0.9% [Normal Saline] 1,000 ml Med 08/16/18 21:00 Active IV ASDIRECTED Sodium Chloride 0.9% [Saline Flush] Med 08/16/18 15:52 Active 10 ml FLUSH ASDIRECTED PRN Sodium Chloride 0.9% [Saline Flush] Med 08/16/18 15:52 Active 2.5 ml FLUSH ASDIRECTED PRN Temazepam [Restoril] Med 08/16/18 21:02 Active 15 mg PO BEDTIME PRN Vancomycin 1.5 gm Med 08/16/18 23:00 Active Sodium Chloride 0.9% [Normal Saline] 500 ml IV Q12H oxyCODONE Med 08/16/18 21:00 Active 5 mg PO Q4H PRN Blood Culture x2 Reflex Set [OM.PC] Stat Oth 08/16/18 15:51 Ordered Saline Lock Insert [OM.PC] Stat Oth 08/16/18 15:50 Ordered Medication Orders Acetaminophen (Tylenol) 650 mg PO Q4H PRN PRN Reason: Pain Last Admin: 08/16/18 22:42 Dose: 650 mg Sodium Chloride (Normal Saline) 1,000 mls @ 75 mls/hr IV ASDIRECTED [facility] Last Admin: 08/16/18 20:20 Dose: 75 mls/hr Vancomycin HCl 1.5 gm/ Sodium (Chloride) 500 mls @ 333.333 mls/hr IV Q12H [facility] Last Admin: 08/16/18 22:34 Dose: 333.333 mls/hr Morphine Sulfate (Morphine) 2 mg IVPUSH Q3H PRN PRN Reason: Pain Oxycodone HCl (Oxycodone) 5 mg PO Q4H PRN PRN Reason: Pain Sodium Chloride (Saline Flush) 10 ml FLUSH ASDIRECTED PRN PRN Reason: Keep Vein Open Sodium Chloride (Saline Flush) 2.5 ml FLUSH ASDIRECTED PRN PRN Reason: Keep Vein Open Temazepam (Restoril) 15 mg PO BEDTIME PRN PRN Reason: Sleep Vancomycin HCl (Pharmacy To Dose - Vancomycin) 1 dose .XX ASDIRECTED [facility] Assessment/Plan Comment:: The patient is a 53-year-old lady who is admitted secondary to infection postsurgical of her right breast. The patient has been evaluated by surgery and is stopped for now to continue with the IV antibiotics. The patient has been started on IV vancomycin with pharmacy to dose. The patient also has a follow- up appointment with her oncologist earlier next week. The patient also has been kept on a diet as tolerated. Repeat laboratory studies have been ordered for the morning. The patient has been encouraged to ambulate. She also have DVT prophylaxis with Lovenox. Patient should be appropriate for discharge in 1-2 days on oral antibiotics depending on cultures.
[2018-08-17] MEDS ORDERED: Potassium Chloride 20 MEQ Tab.ER PO ONE (08:22)
[2018-08-17] MEDS: oxyCODONE 5 MG Tab PO PRN ×3 (09:09→21:20)
[2018-08-17] MEDS: Acetaminophen 325 MG Tab PO PRN ×3 (09:09→21:20)
[2018-08-17] MEDS ORDERED: Lidocaine 1% with EPINEPHrine 1:100,000 20 ML MDV INJECT ONE (10:45)
--- NOTE | 2018-08-17 10:52 | PCM.SURGPN ---
- General Info Date of Service: 08/17/18 Functional Status: Reports: Pain Controlled - Review of Systems General: Reports: No Symptoms (deng po) - Patient Data Vitals - Most Recent: Last Vital Signs Temp 98.2 F 08/17/18 07:23 Pulse 96 08/17/18 07:23 Resp 16 08/17/18 07:23 BP 104/55 L 08/17/18 07:23 Pulse Ox 94 L 08/17/18 07:23 Weight - Most Recent: 265 lb I&O - Last 24 Hours: Intake & Output 08/16/18 08/17/18 08/17/18 22:59 06:59 14:59 Intake Total 2656 Output Total 1050 Balance 1606 Lab Results Last 24 Hrs: Laboratory Results - last 24 hr 08/16/18 08/16/18 08/16/18 Range/Units 15:54 15:54 15:54 WBC 13.04 H (4.0-11.0) K/uL RBC 4.72 (4.30-5.90) M/uL Hgb 13.9 (12.0-16.0) g/dL Hct 41.2 (36.0-46.0) % MCV 87.3 (80.0-98.0) fL MCH 29.4 (27.0-32.0) pg MCHC 33.7 (31.0-37.0) g/dL RDW Std Deviation 42.8 (28.0-62.0) fl RDW Coeff of Breanna 13 (11.0-15.0) % Plt Count 250 (150-400) K/uL MPV 8.50 (7.40-12.00) fL Neut % (Auto) 85.1 H (48.0-80.0) % Lymph % (Auto) 6.3 L (16.0-40.0) % [place] % (Auto) 8.1 (0.0-15.0) % Eos % (Auto) 0.3 (0.0-7.0) % Baso % (Auto) 0.2 (0.0-1.5) % Neut # (Auto) 11.1 H (1.4-5.7) K/uL Lymph # (Auto) 0.8 (0.6-2.4) K/uL [place] # (Auto) 1.1 H (0.0-0.8) K/uL Eos # (Auto) 0.0 (0.0-0.7) K/uL Baso # (Auto) 0.0 (0.0-0.1) K/uL Nucleated RBC % 0.0 /100WBC Nucleated RBCs # 0 K/uL INR 1.00 ABG pH (7.35-7.45) ABG pCO2 (35-45) mmHG ABG pO2 (75-100) mmHG ABG HCO3 (22-26) mEq/L ABG Total CO2 ABG Base Excess (-2.0-2.0) Lactate (0.20-2.00) mmol/L Sodium 135 L (136-145) mmol/L Potassium 3.8 (3.5-5.1) mmol/L Chloride 98 (98-107) mmol/L Carbon Dioxide 24.1 (21.0-32.0) mmol/L BUN 15 (7.0-18.0) mg/dL Creatinine 0.9 (0.6-1.0) mg/dL Est Cr Clr Drug Dosing 66.90 mL/min Estimated GFR (MDRD) > 60.0 ml/min Glucose 109 H (74-106) mg/dL Calcium 8.9 (8.5-10.1) mg/dL Total Bilirubin 0.7 (0.2-1.0) mg/dL AST 11 L (15-37) IU/L ALT 17 (14-63) IU/L Alkaline Phosphatase 77 (46-116) U/L Total Protein 7.5 (6.4-8.2) g/dL Albumin 3.9 (3.4-5.0) g/dL Globulin 3.6 (2.6-4.0) g/dL Albumin/Globulin Ratio 1.1 (0.9-1.6) Urine Color Urine Appearance Urine pH (5.0-8.0) Ur Specific [place] (1.001-1.035) Urine Protein (NEGATIVE) mg/dL Urine Glucose (UA) (NEGATIVE) mg/dL Urine Ketones (NEGATIVE) mg/dL Urine Occult Blood (NEGATIVE) Urine Nitrite (NEGATIVE) Urine Bilirubin (NEGATIVE) Urine Urobilinogen (<2.0) EU/dL Ur Leukocyte Esterase (NEGATIVE) Urine RBC (0-2/HPF) Urine WBC (0-5/HPF) Ur Epithelial Cells (NONE-FEW) Urine Bacteria (NEGATIVE) 08/16/18 08/16/18 08/16/18 Range/Units 15:54 16:40 17:10 WBC (4.0-11.0) K/uL RBC (4.30-5.90) M/uL Hgb (12.0-16.0) g/dL Hct (36.0-46.0) % MCV (80.0-98.0) fL MCH (27.0-32.0) pg MCHC (31.0-37.0) g/dL RDW Std Deviation (28.0-62.0) fl RDW Coeff of Breanna (11.0-15.0) % Plt Count (150-400) K/uL MPV (7.40-12.00) fL Neut % (Auto) (48.0-80.0) % Lymph % (Auto) (16.0-40.0) % [place] % (Auto) (0.0-15.0) % Eos % (Auto) (0.0-7.0) % Baso % (Auto) (0.0-1.5) % Neut # (Auto) (1.4-5.7) K/uL Lymph # (Auto) (0.6-2.4) K/uL [place] # (Auto) (0.0-0.8) K/uL Eos # (Auto) (0.0-0.7) K/uL Baso # (Auto) (0.0-0.1) K/uL Nucleated RBC % /100WBC Nucleated RBCs # K/uL INR ABG pH 7.422 (7.35-7.45) ABG pCO2 34 L (35-45) mmHG ABG pO2 68 L (75-100) mmHG ABG HCO3 22 (22-26) mEq/L ABG Total CO2 20.1 ABG Base Excess -1.6 (-2.0-2.0) Lactate 1.0 (0.20-2.00) mmol/L Sodium (136-145) mmol/L Potassium (3.5-5.1) mmol/L Chloride (98-107) mmol/L Carbon Dioxide (21.0-32.0) mmol/L BUN (7.0-18.0) mg/dL Creatinine (0.6-1.0) mg/dL Est Cr Clr Drug Dosing mL/min Estimated GFR (MDRD) ml/min Glucose (74-106) mg/dL Calcium (8.5-10.1) mg/dL Total Bilirubin (0.2-1.0) mg/dL AST (15-37) IU/L ALT (14-63) IU/L Alkaline Phosphatase (46-116) U/L Total Protein (6.4-8.2) g/dL Albumin (3.4-5.0) g/dL Globulin (2.6-4.0) g/dL Albumin/Globulin Ratio (0.9-1.6) Urine Color YELLOW Urine Appearance HAZY Urine pH 5.5 (5.0-8.0) Ur Specific [place] >= 1.030 (1.001-1.035) Urine Protein NEGATIVE (NEGATIVE) mg/dL Urine Glucose (UA) NEGATIVE (NEGATIVE) mg/dL Urine Ketones NEGATIVE (NEGATIVE) mg/dL Urine Occult Blood TRACE-INTACT H (NEGATIVE) Urine Nitrite NEGATIVE (NEGATIVE) Urine Bilirubin NEGATIVE (NEGATIVE) Urine Urobilinogen 0.2 (<2.0) EU/dL Ur Leukocyte Esterase TRACE H (NEGATIVE) Urine RBC 1-2 (0-2/HPF) Urine WBC 1-3 (0-5/HPF) Ur Epithelial Cells FEW (NONE-FEW) Urine Bacteria FEW (NEGATIVE) 08/17/18 08/17/18 Range/Units 06:26 06:26 WBC 15.83 H (4.0-11.0) K/uL RBC 4.07 L (4.30-5.90) M/uL Hgb 11.9 L (12.0-16.0) g/dL Hct 35.6 L (36.0-46.0) % MCV 87.5 (80.0-98.0) fL MCH 29.2 (27.0-32.0) pg MCHC 33.4 (31.0-37.0) g/dL RDW Std Deviation 43.2 (28.0-62.0) fl RDW Coeff of Bre[place] 13 (11.0-15.0) % Plt Count 192 (150-400) K/uL MPV 8.40 (7.40-12.00) fL Neut % (Auto) 86.1 H (48.0-80.0) % Lymph % (Auto) 4.4 L (16.0-40.0) % [place] % (Auto) 9.3 (0.0-15.0) % Eos % (Auto) 0.1 (0.0-7.0) % Baso % (Auto) 0.1 (0.0-1.5) % Neut # (Auto) 13.6 H (1.4-5.7) K/uL Lymph # (Auto) 0.7 (0.6-2.4) K/uL [place] # (Auto) 1.5 H (0.0-0.8) K/uL Eos # (Auto) 0.0 (0.0-0.7) K/uL Baso # (Auto) 0.0 (0.0-0.1) K/uL Nucleated RBC % 0.0 /100WBC Nucleated RBCs # 0 K/uL INR ABG pH (7.35-7.45) ABG pCO2 (35-45) mmHG ABG pO2 (75-100) mmHG ABG HCO3 (22-26) mEq/L ABG Total CO2 ABG Base Excess (-2.0-2.0) Lactate (0.20-2.00) mmol/L Sodium 140 (136-145) mmol/L Potassium 3.0 L (3.5-5.1) mmol/L Chloride 104 (98-107) mmol/L Carbon Dioxide 22.6 (21.0-32.0) mmol/L BUN 13 (7.0-18.0) mg/dL Creatinine 0.8 (0.6-1.0) mg/dL Est Cr Clr Drug Dosing 63.58 mL/min Estimated GFR (MDRD) > 60.0 ml/min Glucose 105 (74-106) mg/dL Calcium 8.1 L (8.5-10.1) mg/dL Total Bilirubin (0.2-1.0) mg/dL AST (15-37) IU/L ALT (14-63) IU/L Alkaline Phosphatase (46-116) U/L Total Protein (6.4-8.2) g/dL Albumin (3.4-5.0) g/dL Globulin (2.6-4.0) g/dL Albumin/Globulin Ratio (0.9-1.6) Urine Color Urine Appearance Urine pH (5.0-8.0) Ur Specific [place] (1.001-1.035) Urine Protein (NEGATIVE) mg/dL Urine Glucose (UA) (NEGATIVE) mg/dL Urine Ketones (NEGATIVE) mg/dL Urine Occult Blood (NEGATIVE) Urine Nitrite (NEGATIVE) Urine Bilirubin (NEGATIVE) Urine Urobilinogen (<2.0) EU/dL Ur Leukocyte Esterase (NEGATIVE) Urine RBC (0-2/HPF) Urine WBC (0-5/HPF) Ur Epithelial Cells (NONE-FEW) Urine Bacteria (NEGATIVE) Med Orders - Current: Current Medications Acetaminophen (Tylenol) 650 mg PO Q4H PRN PRN Reason: Pain Last Admin: 08/17/18 09:09 Dose: 650 mg Enoxaparin Sodium (Lovenox) 40 mg SUBCUT Q24H EARL Sodium Chloride (Normal Saline) 1,000 mls @ 75 mls/hr IV ASDIRECTED ON LICENSE OF [facility] Last Admin: 08/16/18 20:20 Dose: 75 mls/hr Vancomycin HCl 1.5 gm/ Sodium (Chloride) 500 mls @ 333.333 mls/hr IV Q12H EARL Last Admin: 08/16/18 22:34 Dose: 333.333 mls/hr Morphine Sulfate (Morphine) 2 mg IVPUSH Q3H PRN PRN Reason: Pain Oxycodone HCl (Oxycodone) 5 mg PO Q4H PRN PRN Reason: Pain Last Admin: 08/17/18 09:09 Dose: 5 mg Sodium Chloride (Saline Flush) 10 ml FLUSH ASDIRECTED PRN PRN Reason: Keep Vein Open Sodium Chloride (Saline Flush) 2.5 ml FLUSH ASDIRECTED PRN PRN Reason: Keep Vein Open Temazepam (Restoril) 15 mg PO BEDTIME PRN PRN Reason: Sleep Vancomycin HCl (Pharmacy To Dose - Vancomycin) 1 dose .XX ASDIRECTED ON LICENSE OF [facility] Discontinued Medications Piperacillin Sod/Tazobactam (Sod 3.375 gm/ Sodium Chloride) 50 mls @ 100 mls/ hr IV ONETIME ONE Stop: 08/16/18 16:22 Last Admin: 08/16/18 17:43 Dose: 100 mls/hr Sodium Chloride (Normal Saline) 2,000 mls @ 999 mls/hr IV STAT ONE Stop: 08/16/18 17:52 Last Admin: 08/16/18 16:10 Dose: 999 mls/hr Vancomycin HCl 1 gm/ Sodium (Chloride) 250 mls @ 250 mls/hr IV ONETIME ONE Stop: 08/16/18 16:51 Last Admin: 08/16/18 16:10 Dose: 250 mls/hr Sodium Chloride (Normal Saline) 1,000 mls @ 150 mls/hr IV ONETIME ONE Stop: 08/17/18 01:09 Last Admin: 08/16/18 18:46 Dose: 150 mls/hr Ibuprofen (Motrin) 400 mg PO ONETIME ONE Stop: 08/16/18 18:31 Last Admin: 08/16/18 18:45 Dose: 400 mg Iopamidol (Isovue-370 (76%)) 100 ml IVPUSH ONETIME ONE Stop: 08/16/18 17:33 Last Admin: 08/16/18 17:32 Dose: 100 ml Potassium Chloride (Klor-Con M20) 20 meq PO ONETIME ONE Stop: 08/17/18 08:23 Last Admin: 08/17/18 09:09 Dose: 20 meq - Exam General: Alert, Oriented (wound drain serous fluid, ) - Problem List Review Problem List Initiated/Reviewed/Updated: Yes - My Orders Last 24 Hours: Active Orders 24 hr Category Date Time Status Patient Status [ADT] Stat ADT 08/16/18 18:31 Active Cardiac Monitoring [RC] . DIRECTED Care 08/16/18 15:50 Active EKG 12 Lead [EKG Documentation Completion] [RC] STAT Care 08/16/18 23:12 Active EKG Documentation Completion [RC] STAT Care 08/16/18 15:50 Active Notify Provider Consults [RC] ASDIRECTED Care 08/16/18 18:33 Active Oxygen Therapy, ED [RC] ASDIRECTED Care 08/16/18 15:50 Active Up ad [place] [RC] ASDIRECTED Care 08/17/18 07:22 Active VTE/DVT Education [RC] PER UNIT ROUTINE Care 08/17/18 07:23 Active Vital Signs [RC] Q4H Care 08/17/18 07:23 Active Consult to Physician [CONS] Stat Cons 08/16/18 18:32 Active Regular Diet [DIET] Diet 08/16/18 Dinner Active CULTURE BLOOD [BC] Stat Lab 08/16/18 15:54 Received CULTURE BLOOD [BC] Stat Lab 08/16/18 15:54 Received CULTURE URINE [RM] Stat Lab 08/16/18 17:10 Received CULTURE WOUND [RM] Routine Lab 08/16/18 21:40 Ordered VANCOMYCIN TROUGH [CHEM] Timed Lab 08/18/18 10:00 Ordered Acetaminophen [Tylenol] Med 08/16/18 20:59 Active 650 mg PO Q4H PRN Enoxaparin [Lovenox] Med 08/17/18 10:15 Active 40 mg SUBCUT Q24H Lidocaine 1% w/EPINEPHrine [Xylocaine 1% with Med 08/17/18 10:45 Once EPINEPHrine 1:100,000] 20 ml INJECT ONETIME ONE Morphine Med 08/16/18 21:01 Active 2 mg IVPUSH Q3H PRN Pharmacy to Dose - Vancomycin Med 08/16/18 21:00 Active 1 dose .XX ASDIRECTED Sodium Chloride 0.9% [Normal Saline] 1,000 ml Med 08/16/18 21:00 Active IV ASDIRECTED Sodium Chloride 0.9% [Saline Flush] Med 08/16/18 15:52 Active 10 ml FLUSH ASDIRECTED PRN Sodium Chloride 0.9% [Saline Flush] Med 08/16/18 15:52 Active 2.5 ml FLUSH ASDIRECTED PRN Temazepam [Restoril] Med 08/16/18 21:02 Active 15 mg PO BEDTIME PRN Vancomycin 1.5 gm Med 08/16/18 23:00 Active Sodium Chloride 0.9% [Normal Saline] 500 ml IV Q12H oxyCODONE Med 08/16/18 21:00 Active 5 mg PO Q4H PRN Blood Culture x2 Reflex Set [OM.PC] Stat Oth 08/16/18 15:51 Ordered Saline Lock Insert [OM.PC] Stat Oth 08/16/18 15:50 Ordered Resuscitation Status Routine Resus Stat 08/17/18 07:22 Ordered Medication Orders Acetaminophen (Tylenol) 650 mg PO Q4H PRN PRN Reason: Pain Last Admin: 08/17/18 09:09 Dose: 650 mg Admin: 08/16/18 22:42 Dose: 650 mg Enoxaparin Sodium (Lovenox) 40 mg SUBCUT Q24H EARL Sodium Chloride (Normal Saline) 1,000 mls @ 75 mls/hr IV ASDIRECTED ON LICENSE OF [facility] Last Admin: 08/16/18 20:20 Dose: 75 mls/hr Vancomycin HCl 1.5 gm/ Sodium (Chloride) 500 mls @ 333.333 mls/hr IV Q12H ON LICENSE OF [facility] Last Admin: 08/16/18 22:34 Dose: 333.333 mls/hr Morphine Sulfate (Morphine) 2 mg IVPUSH Q3H PRN PRN Reason: Pain Oxycodone HCl (Oxycodone) 5 mg PO Q4H PRN PRN Reason: Pain Last Admin: 08/17/18 09:09 Dose: 5 mg Sodium Chloride (Saline Flush) 10 ml FLUSH ASDIRECTED PRN PRN Reason: Keep Vein Open Sodium Chloride (Saline Flush) 2.5 ml FLUSH ASDIRECTED PRN PRN Reason: Keep Vein Open Temazepam (Restoril) 15 mg PO BEDTIME PRN PRN Reason: Sleep Vancomycin HCl (Pharmacy To Dose - Vancomycin) 1 dose .XX ASDIRECTED ON LICENSE OF [facility] - Assessment Assessment (Free Text/Narrative):: wound infection; would dc stitches, and open wound and pack wound; wbc trended up a bit, from 13 to 15.8; continue vanco; swelling came down a bit, rash no change; return to [place] would be preferable, as continuation of care, and accessible to her oncologist - Plan Plan (Free Text/Narrative):: wound infection; would dc stitches, and open wound and pack wound; wbc trended up a bit, from 13 to 15.8; continue vanco; swelling came down a bit, rash no change; return to [place] would be preferable, as continuation of care, and accessible to her oncologist
--- NOTE | 2018-08-17 11:13 | PCM.SN ---
- Free Text/Narrative Note: R breast was prepped and draped in sterile fashion, 1 % lidocaine w epi infutrated, wound open up by self after cutting stitches; purulent materials gushing out, and wound packed with 1 inch iodoform gauze; pt tolerated procedure well; gram stain, c+s sent
[2018-08-17] MEDS: Vancomycin 1.5 GM in Sodium Chloride 0.9% 500 ML IV SCH ×2 (12:24→22:07)
[2018-08-17] MEDS: Enoxaparin 40 MG/0.4 ML Syringe SUBCUT SCH (12:24)
[2018-08-17] MEDS: Sodium Chloride 0.9% 1,000 ML IV SCH (17:28)
[2018-08-17] MEDS ORDERED: Ibuprofen 600 MG Tab PO PRN (22:15)
[2018-08-18 07:04] LABS: CHLORIDE,CL 108 mmol/L (98-107); SODIUM,NA 142 mmol/L (136-145)
[2018-08-18] MEDS: Acetaminophen 325 MG Tab PO PRN (07:40)
[2018-08-18] MEDS: Sodium Chloride 0.9% 1,000 ML IV SCH (08:49)
--- NOTE | 2018-08-18 09:10 | PCM.PN ---
<Ramonita Nina M - Last Filed: 08/18/18 10:04> - General Info Date of Service: 08/18/18 Admission Dx/Problem (Free Text): Admission Diagnosis/Problem Admission Diagnosis/Problem Cellulitis Subjective Update: Sitting up in chair. reports pain is tolerable to R breast currently, just received Tylenol. Reports redness is a little worse this morning, it improved initially after I&D with Dr Kapoor. No chest pain or shortness of breath. Feels a little congested, reports this started somewhat after quitting smoking. Functional Status: Reports: Pain Controlled, Tolerating Diet, Ambulating, Urinating - Review of Systems General: Reports: Fever (onernight, will monitor.), Malaise HEENT: Reports: No Symptoms. Denies: Headaches, Sore Throat, Visual Changes Pulmonary: Reports: No Symptoms. Denies: Shortness of Breath, Cough, Sputum Cardiovascular: Reports: No Symptoms. Denies: Chest Pain, Palpitations Gastrointestinal: Reports: No Symptoms. Denies: Abdominal Pain, Nausea, Vomiting 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: Reports: No Symptoms. Denies: Dysuria, Frequency Musculoskeletal: Reports: No Symptoms Skin: Reports: Other (Wound to R lateral breast with surrounding redness, reports redness has increased a little this morning.) Neurological: Reports: No Symptoms Psychiatric: Reports: No Symptoms - Patient Data Vitals - Most Recent: Last Vital Signs Temp 98.5 F 08/18/18 07:52 Pulse 73 08/18/18 07:52 Resp 16 08/18/18 07:52 BP 118/64 08/18/18 07:52 Pulse Ox 96 08/18/18 07:52 Weight - Most Recent: 120.202 kg I&O - Last 24 Hours: Intake & Output 08/17/18 08/18/18 08/18/18 22:59 06:59 14:59 Intake Total 1165 2496 Output Total 800 1500 Balance 365 996 Lab Results Last 24 Hours: Laboratory Results - last 24 hr 08/18/18 08/18/18 Range/Units 06:31 06:31 WBC 9.93 (4.0-11.0) K/uL RBC 3.53 L (4.30-5.90) M/uL Hgb 10.4 L (12.0-16.0) g/dL Hct 31.2 L (36.0-46.0) % MCV 88.4 (80.0-98.0) fL MCH 29.5 (27.0-32.0) pg MCHC 33.3 (31.0-37.0) g/dL RDW Std Deviation 44.2 (28.0-62.0) fl RDW Coeff of Breanna 14 (11.0-15.0) % Plt Count 178 (150-400) K/uL MPV 8.30 (7.40-12.00) fL Neut % (Auto) 82.8 H (48.0-80.0) % Lymph % (Auto) 8.3 L (16.0-40.0) % [place] % (Auto) 6.9 (0.0-15.0) % Eos % (Auto) 1.8 (0.0-7.0) % Baso % (Auto) 0.2 (0.0-1.5) % Neut # (Auto) 8.2 H (1.4-5.7) K/uL Lymph # (Auto) 0.8 (0.6-2.4) K/uL [place] # (Auto) 0.7 (0.0-0.8) K/uL Eos # (Auto) 0.2 (0.0-0.7) K/uL Baso # (Auto) 0.0 (0.0-0.1) K/uL Nucleated RBC % 0.0 /100WBC Nucleated RBCs # 0 K/uL Sodium 142 (136-145) mmol/L Potassium 3.4 L (3.5-5.1) mmol/L Chloride 108 H (98-107) mmol/L Carbon Dioxide 24.6 (21.0-32.0) mmol/L BUN 11 (7.0-18.0) mg/dL Creatinine 0.7 (0.6-1.0) mg/dL Est Cr Clr Drug Dosing 72.66 mL/min Estimated GFR (MDRD) > 60.0 ml/min Glucose 117 H (74-106) mg/dL Calcium 8.6 (8.5-10.1) mg/dL Total Bilirubin 0.2 (0.2-1.0) mg/dL AST 10 L (15-37) IU/L ALT 15 (14-63) IU/L Alkaline Phosphatase 53 (46-116) U/L Total Protein 5.8 L (6.4-8.2) g/dL Albumin 2.6 L (3.4-5.0) g/dL Globulin 3.2 (2.6-4.0) g/dL Albumin/Globulin Ratio 0.8 L (0.9-1.6) [place] Results Last 24 Hours: Microbiology 08/16/18 17:10 Urine Culture - Final Urine, Clean Catch MIXED ANEUDY <1000 CFU/ML 08/16/18 15:54 Aerobic Blood Culture - Preliminary Blood - Venous - Lab Draw NO GROWTH AFTER 1 DAY Anaerobic Blood Culture - Preliminary NO GROWTH AFTER 1 DAY 08/16/18 15:54 Aerobic Blood Culture - Preliminary Blood - Venous NO GROWTH AFTER 1 DAY Anaerobic Blood Culture - Preliminary NO GROWTH AFTER 1 DAY Med Orders - Current: Current Medications Acetaminophen (Tylenol) 650 mg PO Q4H PRN PRN Reason: Pain Last Admin: 08/18/18 07:40 Dose: 650 mg Enoxaparin Sodium (Lovenox) 40 mg SUBCUT Q24H EARL Last Admin: 08/17/18 12:24 Dose: 40 mg Sodium Chloride (Normal Saline) 1,000 mls @ 75 mls/hr IV ASDIRECTED EARL Last Admin: 08/18/18 08:49 Dose: 75 mls/hr Vancomycin HCl 1.5 gm/ Sodium (Chloride) 500 mls @ 333.333 mls/hr IV Q12H EARL Last Admin: 08/17/18 22:07 Dose: 333.333 mls/hr Ibuprofen (Motrin) 600 mg PO Q6H PRN PRN Reason: Fever Last Admin: 08/17/18 22:30 Dose: 600 mg Morphine Sulfate (Morphine) 2 mg IVPUSH Q3H PRN PRN Reason: Pain Oxycodone HCl (Oxycodone) 5 mg PO Q4H PRN PRN Reason: Pain Last Admin: 08/17/18 21:20 Dose: 5 mg Sodium Chloride (Saline Flush) 10 ml FLUSH ASDIRECTED PRN PRN Reason: Keep Vein Open Sodium Chloride (Saline Flush) 2.5 ml FLUSH ASDIRECTED PRN PRN Reason: Keep Vein Open Temazepam (Restoril) 15 mg PO BEDTIME PRN PRN Reason: Sleep Last Admin: 08/17/18 23:21 Dose: 15 mg Vancomycin HCl (Pharmacy To Dose - Vancomycin) 1 dose .XX ASDIRECTED EARL Discontinued Medications Piperacillin Sod/Tazobactam (Sod 3.375 gm/ Sodium Chloride) 50 mls @ 100 mls/ hr IV ONETIME ONE Stop: 08/16/18 16:22 Last Admin: 08/16/18 17:43 Dose: 100 mls/hr Sodium Chloride (Normal Saline) 2,000 mls @ 999 mls/hr IV STAT ONE Stop: 08/16/18 17:52 Last Admin: 08/16/18 16:10 Dose: 999 mls/hr Vancomycin HCl 1 gm/ Sodium (Chloride) 250 mls @ 250 mls/hr IV ONETIME ONE Stop: 08/16/18 16:51 Last Admin: 08/16/18 16:10 Dose: 250 mls/hr Sodium Chloride (Normal Saline) 1,000 mls @ 150 mls/hr IV ONETIME ONE Stop: 08/17/18 01:09 Last Admin: 08/16/18 18:46 Dose: 150 mls/hr Ibuprofen (Motrin) 400 mg PO ONETIME ONE Stop: 08/16/18 18:31 Last Admin: 08/16/18 18:45 Dose: 400 mg Iopamidol (Isovue-370 (76%)) 100 ml IVPUSH ONETIME ONE Stop: 08/16/18 17:33 Last Admin: 08/16/18 17:32 Dose: 100 ml Lidocaine/Epinephrine (Xylocaine 1% With Epinephrine 1:100,000) 20 ml INJECT ONETIME ONE Stop: 08/17/18 10:46 Last Admin: 08/17/18 11:15 Dose: 20 ml Potassium Chloride (Klor-Con M20) 20 meq PO ONETIME ONE Stop: 08/17/18 08:23 Last Admin: 08/17/18 09:09 Dose: 20 meq - Exam General: Alert, Oriented, Cooperative, No Acute Distress Neck: Supple Lungs: Clear to Auscultation, Normal Respiratory Effort. No: Rhonchi, Wheezing Cardiovascular: Regular Rate, Regular Rhythm GI/Abdominal Exam: Normal Bowel Sounds, Soft, Non-Tender, No Organomegaly Back Exam: Normal Inspection, Full Range of Motion Extremities: Normal Inspection, Normal Range of Motion, Non-Tender Wound/Incisions: Drainage (purulent drainage to R breast wound from packing. Surround erythema noted, extending medial to midline and up to neckline.), Erythema Neurological: No New Focal Deficit, Cranial Nerves Intact Psy/Mental Status: Alert, Normal Affect - Problem List & Annotations (1) Hx of smoking SNOMED Code(s): 498144716 Code(s): Z87.891 - PERSONAL HISTORY OF NICOTINE DEPENDENCE Status: Acute Current Visit: Yes (2) Cellulitis SNOMED Code(s): 988045576 Code(s): L03.90 - CELLULITIS, UNSPECIFIED Status: Acute Priority: High Current Visit: Yes Qualifiers: Site of cellulitis: other site Qualified Code(s): L03.818 - Cellulitis of other sites Annotation/Comment:: Right lateral breast (3) History of chemotherapy SNOMED Code(s): 935060732403021, 530496074957577 Code(s): Z92.21 - PERSONAL HISTORY OF ANTINEOPLASTIC CHEMOTHERAPY Status: Acute Priority: Medium Current Visit: Yes (4) Postoperative abscess SNOMED Code(s): 459051845, 134465783 Code(s): T81.49XA - INFECTION FOLLOWING A PROCEDURE, OTHER SURGICAL SITE, INIT Status: Acute Priority: High Current Visit: Yes (5) Breast cancer, right breast SNOMED Code(s): 189809092 Code(s): C50.911 - MALIGNANT NEOPLASM OF UNSP SITE OF RIGHT FEMALE BREAST Status: Chronic Priority: Medium Current Visit: Yes Qualifiers: Breast location: unspecified site of breast Estrogen receptor status: positive Patient sex: female Qualified Code(s): C50.911 - Malignant neoplasm of unspecified site of right female breast; Z17.0 - Estrogen receptor positive status [ER+] (6) Depression SNOMED Code(s): 25229978 Code(s): F32.9 - MAJOR DEPRESSIVE DISORDER, SINGLE EPISODE, UNSPECIFIED Status: Chronic Priority: Low Current Visit: No Qualifiers: Depression Type: unspecified Qualified Code(s): F32.9 - Major depressive disorder, single episode, unspecified - Problem List Review Problem List Initiated/Reviewed/Updated: Yes - Plan Plan:: This 53 year old female admitted with cellulitis and abscess to post-operative R breast incision. 1. R breast cellulitis with abscess: I&D completed yesterday by Dr Kapoor. Cultures pending. BC negative x 1 day . Continue Vancomycin. Leukocytosis improved, 9, 000 today. Fever noted overnight. Will monitor. Lula has requested I speak with Dr Duke Pickens, surgeon who did this operation and get his recommendations. VTE prophylaxis: Lovenox Dispo: 1-2 days pending improvement and wound culture results. <Kelvin Madrid M - Last Filed: 08/18/18 15:00> - General Info Subjective Update: I have seen and examined the patient independently of Ramonita Nina CNP. I have discussed the case with her. I have reviewed and agree with the assessment and plan of care for the patient as outlined by her. Please see orders. - Patient Data Vitals - Most Recent: Last Vital Signs Temp 36.7 C 08/18/18 11:39 Pulse 72 08/18/18 11:39 Resp 18 08/18/18 11:39 BP 113/72 08/18/18 11:39 Pulse Ox 97 08/18/18 11:39 I&O - Last 24 Hours: Intake & Output 08/17/18 08/18/18 08/18/18 22:59 06:59 14:59 Intake Total 1165 2496 1486 Output Total 800 1500 1000 Balance 365 996 486 Lab Results Last 24 Hours: Laboratory Results - last 24 hr 08/18/18 08/18/18 08/18/18 Range/Units 06:31 06:31 09:46 WBC 9.93 (4.0-11.0) K/uL RBC 3.53 L (4.30-5.90) M/uL Hgb 10.4 L (12.0-16.0) g/dL Hct 31.2 L (36.0-46.0) % MCV 88.4 (80.0-98.0) fL MCH 29.5 (27.0-32.0) pg MCHC 33.3 (31.0-37.0) g/dL RDW Std Deviation 44.2 (28.0-62.0) fl RDW Coeff of Breanna 14 (11.0-15.0) % Plt Count 178 (150-400) K/uL MPV 8.30 (7.40-12.00) fL Neut % (Auto) 82.8 H (48.0-80.0) % Lymph % (Auto) 8.3 L (16.0-40.0) % [place] % (Auto) 6.9 (0.0-15.0) % Eos % (Auto) 1.8 (0.0-7.0) % Baso % (Auto) 0.2 (0.0-1.5) % Neut # (Auto) 8.2 H (1.4-5.7) K/uL Lymph # (Auto) 0.8 (0.6-2.4) K/uL [place] # (Auto) 0.7 (0.0-0.8) K/uL Eos # (Auto) 0.2 (0.0-0.7) K/uL Baso # (Auto) 0.0 (0.0-0.1) K/uL Nucleated RBC % 0.0 /100WBC Nucleated RBCs # 0 K/uL Sodium 142 (136-145) mmol/L Potassium 3.4 L (3.5-5.1) mmol/L Chloride 108 H (98-107) mmol/L Carbon Dioxide 24.6 (21.0-32.0) mmol/L BUN 11 (7.0-18.0) mg/dL Creatinine 0.7 (0.6-1.0) mg/dL Est Cr Clr Drug Dosing 72.66 mL/min Estimated GFR (MDRD) > 60.0 ml/min Glucose 117 H (74-106) mg/dL Calcium 8.6 (8.5-10.1) mg/dL Total Bilirubin 0.2 (0.2-1.0) mg/dL AST 10 L (15-37) IU/L ALT 15 (14-63) IU/L Alkaline Phosphatase 53 (46-116) U/L Total Protein 5.8 L (6.4-8.2) g/dL Albumin 2.6 L (3.4-5.0) g/dL Globulin 3.2 (2.6-4.0) g/dL Albumin/Globulin Ratio 0.8 L (0.9-1.6) Vancomycin Trough 13.3 H (5.0-10.0) ug/mL [place] Results Last 24 Hours: Microbiology 08/16/18 17:10 Urine Culture - Final Urine, Clean Catch MIXED ANEUDY <1000 CFU/ML 08/16/18 15:54 Aerobic Blood Culture - Preliminary Blood - Venous - Lab Draw NO GROWTH AFTER 1 DAY Anaerobic Blood Culture - Preliminary NO GROWTH AFTER 1 DAY 08/16/18 15:54 Aerobic Blood Culture - Preliminary Blood - Venous NO GROWTH AFTER 1 DAY Anaerobic Blood Culture - Preliminary NO GROWTH AFTER 1 DAY Med Orders - Current: Current Medications Acetaminophen (Tylenol) 650 mg PO Q4H PRN PRN Reason: Pain Last Admin: 08/18/18 07:40 Dose: 650 mg Albuterol/Ipratropium (Duoneb 3.0-0.5 Mg/3 Ml) 3 ml NEB Q4HRRT PRN PRN Reason: SOB/wheezing Enoxaparin Sodium (Lovenox) 40 mg SUBCUT Q24H EARL Last Admin: 08/18/18 09:50 Dose: 40 mg Sodium Chloride (Normal Saline) 1,000 mls @ 75 mls/hr IV ASDIRECTED [facility] Last Admin: 08/18/18 08:49 Dose: 75 mls/hr Vancomycin HCl 1.5 gm/ Sodium (Chloride) 500 mls @ 333.333 mls/hr IV Q12H EARL Last Admin: 08/18/18 11:27 Dose: 333.333 mls/hr Ibuprofen (Motrin) 600 mg PO Q6H PRN PRN Reason: Fever Last Admin: 08/17/18 22:30 Dose: 600 mg Morphine Sulfate (Morphine) 2 mg IVPUSH Q3H PRN PRN Reason: Pain Oxycodone HCl (Oxycodone) 5 mg PO Q4H PRN PRN Reason: Pain Last Admin: 08/18/18 12:06 Dose: 5 mg Sodium Chloride (Saline Flush) 10 ml FLUSH ASDIRECTED PRN PRN Reason: Keep Vein Open Sodium Chloride (Saline Flush) 2.5 ml FLUSH ASDIRECTED PRN PRN Reason: Keep Vein Open Temazepam (Restoril) 15 mg PO BEDTIME PRN PRN Reason: Sleep Last Admin: 08/17/18 23:21 Dose: 15 mg Vancomycin HCl (Pharmacy To Dose - Vancomycin) 1 dose .XX ASDIRECTED [facility] Discontinued Medications Heparin Sodium (Porcine) (Heparin Lock Flush 100 Units/Ml) 500 units FLUSH ONETIME ONE Stop: 08/18/18 13:31 Last Admin: 08/18/18 14:16 Dose: 500 units Piperacillin Sod/Tazobactam (Sod 3.375 gm/ Sodium Chloride) 50 mls @ 100 mls/ hr IV ONETIME ONE Stop: 08/16/18 16:22 Last Admin: 08/16/18 17:43 Dose: 100 mls/hr Sodium Chloride (Normal Saline) 2,000 mls @ 999 mls/hr IV STAT ONE Stop: 08/16/18 17:52 Last Admin: 08/16/18 16:10 Dose: 999 mls/hr Vancomycin HCl 1 gm/ Sodium (Chloride) 250 mls @ 250 mls/hr IV ONETIME ONE Stop: 08/16/18 16:51 Last Admin: 08/16/18 16:10 Dose: 250 mls/hr Sodium Chloride (Normal Saline) 1,000 mls @ 150 mls/hr IV ONETIME ONE Stop: 08/17/18 01:09 Last Admin: 08/16/18 18:46 Dose: 150 mls/hr Ibuprofen (Motrin) 400 mg PO ONETIME ONE Stop: 08/16/18 18:31 Last Admin: 08/16/18 18:45 Dose: 400 mg Iopamidol (Isovue-370 (76%)) 100 ml IVPUSH ONETIME ONE Stop: 08/16/18 17:33 Last Admin: 08/16/18 17:32 Dose: 100 ml Lidocaine/Epinephrine (Xylocaine 1% With Epinephrine 1:100,000) 20 ml INJECT ONETIME ONE Stop: 08/17/18 10:46 Last Admin: 08/17/18 11:15 Dose: 20 ml Potassium Chloride (Klor-Con M20) 20 meq PO ONETIME ONE Stop: 08/17/18 08:23 Last Admin: 08/17/18 09:09 Dose: 20 meq - Problem List & Annotations (1) Cellulitis SNOMED Code(s): 837974159 Code(s): L03.90 - CELLULITIS, UNSPECIFIED Status: Acute Priority: High Current Visit: Yes Qualifiers: Site of cellulitis: other site Qualified Code(s): L03.818 - Cellulitis of other sites Annotation/Comment:: Right lateral breast (2) Postoperative abscess SNOMED Code(s): 910589069, 598044511 Code(s): T81.49XA - INFECTION FOLLOWING A PROCEDURE, OTHER SURGICAL SITE, INIT Status: Acute Priority: High Current Visit: Yes (3) History of chemotherapy SNOMED Code(s): 100621462405527, 209177124274290 Code(s): Z92.21 - PERSONAL HISTORY OF ANTINEOPLASTIC CHEMOTHERAPY Status: Acute Priority: Medium Current Visit: Yes (4) Breast cancer, right breast SNOMED Code(s): 476064624 Code(s): C50.911 - MALIGNANT NEOPLASM OF UNSP SITE OF RIGHT FEMALE BREAST Status: Chronic Priority: Medium Current Visit: Yes Qualifiers: Breast location: unspecified site of breast Estrogen receptor status: positive Patient sex: female Qualified Code(s): C50.911 - Malignant neoplasm of unspecified site of right female breast; Z17.0 - Estrogen receptor positive status [ER+] - My Orders Last 24 Hours: My Active Orders 08/17/18 22:15 Ibuprofen [Motrin] 600 mg PO Q6H PRN 08/18/18 12:59 Sausage Cutter Discontinue [Cardiac Monitoring Discontinue] [RC] Click to Edit
[2018-08-18] MEDS: Enoxaparin 40 MG/0.4 ML Syringe SUBCUT SCH (09:50)
[2018-08-18] MEDS ORDERED: Albuterol/Ipratropium 3.0-0.5 MG/3 ML Neb Soln NEB PRN (10:29)
--- NOTE | 2018-08-18 10:52 | CONS ---
DATE OF CONSULTATION: 08/16/2018 DATE OF : 1965 PRIMARY CARE PHYSICIAN: None PCP CONCERNING QUESTION: Right breast infection. HISTORY OF PRESENT ILLNESS: The patient is a 53-year-old lady, who has a very complex medical history in the past. The patient was recently diagnosed with breast cancer in the right breast in April 2017, and in May 2017, the patient underwent breast conservative surgery, lumpectomy plus radiation, and it turned out to be ER/NV negative and Herceptin positive, and the patient also subject to more radiation and infusion treatment, according to the note, all the way to April 2018, and presumably that was the end of the treatment. However, the patient developed some fluid, according to the patient's remark, and one week ago, she went back to her oncologist and had more surgery done, and none of this information is available at the time of dictation. According to the patient, they wallace some fluid and did some biopsy, everything was benign, and postop, she went back to home. She was feeling well but feels the right breast is a little bit engorging, and about a day prior to the admission, she started feeling pain, although there was no drainage, and also the breast felt hot. She went to the emergency room and workup with blood work noted to be a white count of 13, and CAT scan showed a collection 5 x 4 cm in the right breast in the right upper outer quadrant. The patient was admitted to medical for further management. Surgery was also consulted. PAST MEDICAL HISTORY: Significant for hypertension and asthma. PAST SURGICAL HISTORY: Hernia repair seven times and ankle surgery, neck fusion, wrist surgery and normal vaginal delivery x1. ALLERGIES: Please refer to nursing for details. MEDICATIONS: Please refer to nursing for details. REVIEW OF SYSTEMS: Same as history of present illness. SOCIAL HISTORY: The patient is a current day-to-day smoker. Alcohol is social use. PHYSICAL EXAMINATION: GENERAL: A very pleasant lady, lying in bed comfortable with no complaint, in no acute distress. HEENT: Normocephalic and atraumatic. Sclerae anicteric. LUNGS: Clear to auscultation. HEART: Regular rate and rhythm. BREASTS: Right breast has incision line on the right upper quadrant, and the whole breast is with cellulitis in appearance and dermatome with sutures in place. No expressed material. The breast is obviously swollen, engorging, and the only point of tenderness is a little bit medial to the shoulder, so it is very high end of the outer upper quadrant, corresponding with CAT scan collection. SKIN: Intact. LABORATORY VALUES: White count 13. IMPRESSION: Postoperative collection from surgery, likely seroma, and with the tenderness and warmth, can also indicate a possible abscess collection. We will start with antibiotic like you are doing and follow up with blood work. The patient also has a followup appointment with her original surgeon on Saturday, and with patient's complex oncology, surgical history, and medical history, the patient probably would benefit to return to her original surgeon or tertiary care center for management. For the time being, we will follow the patient regarding treatment with antibiotic. Ultimately, the patient probably will have to either have the wound opened up to drain or CT-guided drainage. Thanks for the consult. We will follow the patient with you. MELONIE / JESUS /[id number]
[2018-08-18] MEDS: Vancomycin 1.5 GM in Sodium Chloride 0.9% 500 ML IV SCH (11:27)
[2018-08-18 11:40] VITALS: BP 113/72
--- NOTE | 2018-08-18 11:57 | PCM.DCSUM1 ---
<Ramonita Nina - Last Filed: 08/18/18 13:26> Discharge Summary - Hospital Course Brief History: The patient is a 53-year-old lady who is presented to the emergency department with the chief complaint of high fever and confusion reported by her family. The patient has a history of breast cancer to her right breast last year and one week ago the patient had surgery to her right breast with lump removal and over the past couple of days she started to develop pain, tenderness and swelling with heat and a right breast. Patient also reportedly had a fever of 103 at home. The patient also has undergone chemotherapy for breast cancer. Oncology medical records not available. Patient does have pain and tenderness to her right breast and she is also been evaluated by general surgeon through the emergency department. The patient has denied any dizziness or lightheadedness. She has no other complaints at present. Diagnosis: Stroke: No - Discharge Data Discharge Date: 08/18/18 Discharge Disposition: Home, Self-Care 01 Condition: Fair - Discharge Diagnosis/Problem(s) (1) Hx of smoking SNOMED Code(s): 723872972 ICD Code: Z87.891 - PERSONAL HISTORY OF NICOTINE DEPENDENCE Status: Acute Current Visit: Yes (2) Cellulitis SNOMED Code(s): 165730081 ICD Code: L03.90 - CELLULITIS, UNSPECIFIED Status: Acute Priority: High Current Visit: Yes Problem Details: Right lateral breast Qualifiers: Site of cellulitis: other site Qualified Code(s): L03.818 - Cellulitis of other sites (3) History of chemotherapy SNOMED Code(s): 477183253406140, 972836052604126 ICD Code: Z92.21 - PERSONAL HISTORY OF ANTINEOPLASTIC CHEMOTHERAPY Status: Acute Priority: Medium Current Visit: Yes (4) Postoperative abscess SNOMED Code(s): 595273786, 797782165 ICD Code: T81.49XA - INFECTION FOLLOWING A PROCEDURE, OTHER SURGICAL SITE, INIT Status: Acute Priority: High Current Visit: Yes (5) Breast cancer, right breast SNOMED Code(s): 366898782 ICD Code: C50.911 - MALIGNANT NEOPLASM OF UNSP SITE OF RIGHT FEMALE BREAST Status: Chronic Priority: Medium Current Visit: Yes Qualifiers: Breast location: unspecified site of breast Estrogen receptor status: positive Patient sex: female Qualified Code(s): C50.911 - Malignant neoplasm of unspecified site of right female breast; Z17.0 - Estrogen receptor positive status [ER+] (6) Depression SNOMED Code(s): 39867070 ICD Code: F32.9 - MAJOR DEPRESSIVE DISORDER, SINGLE EPISODE, UNSPECIFIED Status: Chronic Priority: Low Current Visit: No Qualifiers: Depression Type: unspecified Qualified Code(s): F32.9 - Major depressive disorder, single episode, unspecified - Patient Summary/Data Consults: Consultations 08/16/18 18:32 Consult to Physician [CONS] Stat - Patient Instructions Diet: Regular Diet as Tolerated Activity: As Tolerated Driving: Do Not Drive Showering/Bathing: No Tub Bathing/Swimming Notify Provider of: Fever, Increased Pain, Swelling and Redness, Drainage, Nausea and/or Vomiting - Discharge Plan *PRESCRIPTION DRUG MONITORING PROGRAM REVIEWED*: Not Applicable *COPY OF PRESCRIPTION DRUG MONITORING REPORT IN PATIENT RUPINDER: Not Applicable Prescriptions/Med Rec: Sulfamethoxazole/Trimethoprim [Bactrim Ds Tablet] 1 each PO BID #20 tablet Home Medications: Home Meds Sulfamethoxazole/Trimethoprim [Bactrim Ds Tablet] 1 each PO BID #20 tablet 08/18 [Rx] buPROPion HCl [Wellbutrin Xl] 300 mg PO QAM 08/18/18 [History] Patient Handouts: Skin Abscess, Mjgu-rl-Opcw, Cellulitis, Adult, Kywo-ju-Waxs, Sulfamethoxazole; Trimethoprim, SMX-TMP tablets Referrals: [facility] [Outside] Amarjit Munoz MD [Ordering Only Provider] - 08/25/18 12:30 pm Duke Pickens MD [Ordering Only Provider] - 08/19/18 10:00 am - Discharge Summary/Plan Comment DC Time >30 min.: No Discharge Summary/Plan Comment: Discharge Diagnoses: R breast cellulitis s/p lumpectomy Hx R breast ca with radiation and chemotherapy hx. Depression Lula was admitted due to confusion, which resolved post antibiotic administration. Cultures were obtain, blood cultures which are negative x 1 day. Wound culture s/p bedside I&D with Dr Kapoor, see note, still pending. UC negative. She was treated with IV Vancomycin. Today she is feeling better, fevers have improved, last fever 08/17 evening. I spoke with Dr Pickens,surgeon who performed initial lumpectomy. He recommended patient to be seen in his office tomorrow. I will send culture information when available to his office. I will send admission information with patient so he can review this at appointment. I will send her home with Bactrim DS x 10 days for cellulitis/ abscess to R breast. This may change upon, culture returning or recommendations after appointment with Dr Pickens. She is to return to ED if fevers return, pain worsens or she has any concerns. She would likely benefit from transfer to [place] so she is able to follow up with surgeon and her oncologist there. She denies any medication for pain. She was offered to stay another night and discharged early in the morning to go to [place] for her appointment, she requests discharge tonight so she can gather her things for appointment in [place]. - General Info Date of Service: 08/18/18 Admission Dx/Problem (Free Text: Admission Diagnosis/Problem Admission Diagnosis/Problem Cellulitis Subjective Update: Feeling ok today, mild pain to R breast, intermittent redness comes and goes. Dressing intact to R breast. Functional Status: Reports: Pain Controlled, Tolerating Diet, Ambulating, Urinating - Review of Systems General: Reports: No Symptoms. Denies: Fever, Weakness, Fatigue, Malaise HEENT: Reports: No Symptoms. Denies: Headaches, Sore Throat Pulmonary: Reports: No Symptoms. Denies: Shortness of Breath Cardiovascular: Reports: No Symptoms. Denies: Chest Pain Gastrointestinal: Denies: Abdominal Pain, Nausea, Vomiting 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: Reports: No Symptoms. Denies: Dysuria, Frequency, Burning Musculoskeletal: Reports: No Symptoms Skin: Reports: Other (wound, R breast.) Neurological: Reports: No Symptoms Psychiatric: Reports: No Symptoms - Patient Data Vitals - Most Recent: Last Vital Signs Temp 98.1 F 08/18/18 11:39 Pulse 72 08/18/18 11:39 Resp 18 08/18/18 11:39 BP 113/72 08/18/18 11:39 Pulse Ox 97 08/18/18 11:39 Weight - Most Recent: 120.202 kg I&O - Last 24 hours: Intake & Output 08/17/18 08/18/18 08/18/18 22:59 06:59 14:59 Intake Total 1165 2496 500 Output Total 800 1500 Balance 365 996 500 Lab Results - Last 24 hrs: Laboratory Results - last 24 hr 08/18/18 08/18/18 08/18/18 Range/Units 06:31 06:31 09:46 WBC 9.93 (4.0-11.0) K/uL RBC 3.53 L (4.30-5.90) M/uL Hgb 10.4 L (12.0-16.0) g/dL Hct 31.2 L (36.0-46.0) % MCV 88.4 (80.0-98.0) fL MCH 29.5 (27.0-32.0) pg MCHC 33.3 (31.0-37.0) g/dL RDW Std Deviation 44.2 (28.0-62.0) fl RDW Coeff of Breanna 14 (11.0-15.0) % Plt Count 178 (150-400) K/uL MPV 8.30 (7.40-12.00) fL Neut % (Auto) 82.8 H (48.0-80.0) % Lymph % (Auto) 8.3 L (16.0-40.0) % Gonzales % (Auto) 6.9 (0.0-15.0) % Eos % (Auto) 1.8 (0.0-7.0) % Baso % (Auto) 0.2 (0.0-1.5) % Neut # (Auto) 8.2 H (1.4-5.7) K/uL Lymph # (Auto) 0.8 (0.6-2.4) K/uL Gonzales # (Auto) 0.7 (0.0-0.8) K/uL Eos # (Auto) 0.2 (0.0-0.7) K/uL Baso # (Auto) 0.0 (0.0-0.1) K/uL Nucleated RBC % 0.0 /100WBC Nucleated RBCs # 0 K/uL Sodium 142 (136-145) mmol/L Potassium 3.4 L (3.5-5.1) mmol/L Chloride 108 H (98-107) mmol/L Carbon Dioxide 24.6 (21.0-32.0) mmol/L BUN 11 (7.0-18.0) mg/dL Creatinine 0.7 (0.6-1.0) mg/dL Est Cr Clr Drug Dosing 72.66 mL/min Estimated GFR (MDRD) > 60.0 ml/min Glucose 117 H (74-106) mg/dL Calcium 8.6 (8.5-10.1) mg/dL Total Bilirubin 0.2 (0.2-1.0) mg/dL AST 10 L (15-37) IU/L ALT 15 (14-63) IU/L Alkaline Phosphatase 53 (46-116) U/L Total Protein 5.8 L (6.4-8.2) g/dL Albumin 2.6 L (3.4-5.0) g/dL Globulin 3.2 (2.6-4.0) g/dL Albumin/Globulin Ratio 0.8 L (0.9-1.6) Vancomycin Trough 13.3 H (5.0-10.0) ug/mL FLORA Results - Last 24 hrs: Microbiology 08/16/18 17:10 Urine Culture - Final Urine, Clean Catch MIXED ANEUDY <1000 CFU/ML 08/16/18 15:54 Aerobic Blood Culture - Preliminary Blood - Venous - Lab Draw NO GROWTH AFTER 1 DAY Anaerobic Blood Culture - Preliminary NO GROWTH AFTER 1 DAY 08/16/18 15:54 Aerobic Blood Culture - Preliminary Blood - Venous NO GROWTH AFTER 1 DAY Anaerobic Blood Culture - Preliminary NO GROWTH AFTER 1 DAY Med Orders - Current: Current Medications Acetaminophen (Tylenol) 650 mg PO Q4H PRN PRN Reason: Pain Last Admin: 08/18/18 07:40 Dose: 650 mg Albuterol/Ipratropium (Duoneb 3.0-0.5 Mg/3 Ml) 3 ml NEB Q4HRRT PRN PRN Reason: SOB/wheezing Enoxaparin Sodium (Lovenox) 40 mg SUBCUT Q24H [facility] Last Admin: 08/18/18 09:50 Dose: 40 mg Sodium Chloride (Normal Saline) 1,000 mls @ 75 mls/hr IV ASDIRECTED [facility] Last Admin: 08/18/18 08:49 Dose: 75 mls/hr Vancomycin HCl 1.5 gm/ Sodium (Chloride) 500 mls @ 333.333 mls/hr IV Q12H [facility] Last Admin: 08/18/18 11:27 Dose: 333.333 mls/hr Ibuprofen (Motrin) 600 mg PO Q6H PRN PRN Reason: Fever Last Admin: 08/17/18 22:30 Dose: 600 mg Morphine Sulfate (Morphine) 2 mg IVPUSH Q3H PRN PRN Reason: Pain Oxycodone HCl (Oxycodone) 5 mg PO Q4H PRN PRN Reason: Pain Last Admin: 08/17/18 21:20 Dose: 5 mg Sodium Chloride (Saline Flush) 10 ml FLUSH ASDIRECTED PRN PRN Reason: Keep Vein Open Sodium Chloride (Saline Flush) 2.5 ml FLUSH ASDIRECTED PRN PRN Reason: Keep Vein Open Temazepam (Restoril) 15 mg PO BEDTIME PRN PRN Reason: Sleep Last Admin: 08/17/18 23:21 Dose: 15 mg Vancomycin HCl (Pharmacy To Dose - Vancomycin) 1 dose .XX ASDIRECTED [facility] Discontinued Medications Piperacillin Sod/Tazobactam (Sod 3.375 gm/ Sodium Chloride) 50 mls @ 100 mls/ hr IV ONETIME ONE Stop: 08/16/18 16:22 Last Admin: 08/16/18 17:43 Dose: 100 mls/hr Sodium Chloride (Normal Saline) 2,000 mls @ 999 mls/hr IV STAT ONE Stop: 08/16/18 17:52 Last Admin: 08/16/18 16:10 Dose: 999 mls/hr Vancomycin HCl 1 gm/ Sodium (Chloride) 250 mls @ 250 mls/hr IV ONETIME ONE Stop: 08/16/18 16:51 Last Admin: 08/16/18 16:10 Dose: 250 mls/hr Sodium Chloride (Normal Saline) 1,000 mls @ 150 mls/hr IV ONETIME ONE Stop: 08/17/18 01:09 Last Admin: 08/16/18 18:46 Dose: 150 mls/hr Ibuprofen (Motrin) 400 mg PO ONETIME ONE Stop: 08/16/18 18:31 Last Admin: 08/16/18 18:45 Dose: 400 mg Iopamidol (Isovue-370 (76%)) 100 ml IVPUSH ONETIME ONE Stop: 08/16/18 17:33 Last Admin: 08/16/18 17:32 Dose: 100 ml Lidocaine/Epinephrine (Xylocaine 1% With Epinephrine 1:100,000) 20 ml INJECT ONETIME ONE Stop: 08/17/18 10:46 Last Admin: 08/17/18 11:15 Dose: 20 ml Potassium Chloride (Klor-Con M20) 20 meq PO ONETIME ONE Stop: 08/17/18 08:23 Last Admin: 08/17/18 09:09 Dose: 20 meq - Exam General: Reports: Alert, Oriented, Cooperative, No Acute Distress Neck: Reports: Supple Lungs: Reports: Clear to Auscultation, Normal Respiratory Effort Cardiovascular: Reports: Regular Rate, Regular Rhythm, No Murmurs. Denies: Tachycardia GI/Abdominal Exam: Normal Bowel Sounds, Soft, Non-Tender Back Exam: Reports: Normal Inspection, Full Range of Motion Wound/Incisions: Reports: Drainage (serous drainage noted to packing to lateral R breast wound. No fluctuance noted, no purulent drainage able to be expelled with palpation. Upper sutures remain intact.), Erythema Psy/Mental Status: Reports: Alert, Normal Affect, Normal Mood <Kelvin Madrid - Last Filed: 08/18/18 15:04> Discharge Summary - Hospital Course HPI Initial Comments: I have seen and examined the patient independently of Ramonita Nina CNP, MD. I have discussed the case with her. I have reviewed and agree with the assessment and plan of care for the patient as outlined by her. Please see orders. Patient to follow with her surgeon. - Discharge Diagnosis/Problem(s) (1) Cellulitis SNOMED Code(s): 544464423 ICD Code: L03.90 - CELLULITIS, UNSPECIFIED Status: Acute Priority: High Current Visit: Yes Problem Details: Right lateral breast Qualifiers: Site of cellulitis: other site Qualified Code(s): L03.818 - Cellulitis of other sites (2) Postoperative abscess SNOMED Code(s): 280896830, 499462187 ICD Code: T81.49XA - INFECTION FOLLOWING A PROCEDURE, OTHER SURGICAL SITE, INIT Status: Acute Priority: High Current Visit: Yes (3) History of chemotherapy SNOMED Code(s): 549413339508562, 475562724395393 ICD Code: Z92.21 - PERSONAL HISTORY OF ANTINEOPLASTIC CHEMOTHERAPY Status: Acute Priority: Medium Current Visit: Yes (4) Breast cancer, right breast SNOMED Code(s): 078495920 ICD Code: C50.911 - MALIGNANT NEOPLASM OF UNSP SITE OF RIGHT FEMALE BREAST Status: Chronic Priority: Medium Current Visit: Yes Qualifiers: Breast location: unspecified site of breast Estrogen receptor status: positive Patient sex: female Qualified Code(s): C50.911 - Malignant neoplasm of unspecified site of right female breast; Z17.0 - Estrogen receptor positive status [ER+] - Patient Summary/Data Consults: Consultations 08/16/18 18:32 Consult to Physician [CONS] Stat - Patient Data Vitals - Most Recent: Last Vital Signs Temp 36.7 C 08/18/18 11:39 Pulse 72 08/18/18 11:39 Resp 18 08/18/18 11:39 BP 113/72 08/18/18 11:39 Pulse Ox 97 08/18/18 11:39 I&O - Last 24 hours: Intake & Output 08/18/18 08/18/18 08/18/18 06:59 14:59 22:59 Intake Total 2496 1486 Output Total 1500 1000 Balance 996 486 Lab Results - Last 24 hrs: Laboratory Results - last 24 hr 08/18/18 08/18/18 08/18/18 Range/Units 06:31 06:31 09:46 WBC 9.93 (4.0-11.0) K/uL RBC 3.53 L (4.30-5.90) M/uL Hgb 10.4 L (12.0-16.0) g/dL Hct 31.2 L (36.0-46.0) % MCV 88.4 (80.0-98.0) fL MCH 29.5 (27.0-32.0) pg MCHC 33.3 (31.0-37.0) g/dL RDW Std Deviation 44.2 (28.0-62.0) fl RDW Coeff of Breanna 14 (11.0-15.0) % Plt Count 178 (150-400) K/uL MPV 8.30 (7.40-12.00) fL Neut % (Auto) 82.8 H (48.0-80.0) % Lymph % (Auto) 8.3 L (16.0-40.0) % Gonzales % (Auto) 6.9 (0.0-15.0) % Eos % (Auto) 1.8 (0.0-7.0) % Baso % (Auto) 0.2 (0.0-1.5) % Neut # (Auto) 8.2 H (1.4-5.7) K/uL Lymph # (Auto) 0.8 (0.6-2.4) K/uL Gonzales # (Auto) 0.7 (0.0-0.8) K/uL Eos # (Auto) 0.2 (0.0-0.7) K/uL Baso # (Auto) 0.0 (0.0-0.1) K/uL Nucleated RBC % 0.0 /100WBC Nucleated RBCs # 0 K/uL Sodium 142 (136-145) mmol/L Potassium 3.4 L (3.5-5.1) mmol/L Chloride 108 H (98-107) mmol/L Carbon Dioxide 24.6 (21.0-32.0) mmol/L BUN 11 (7.0-18.0) mg/dL Creatinine 0.7 (0.6-1.0) mg/dL Est Cr Clr Drug Dosing 72.66 mL/min Estimated GFR (MDRD) > 60.0 ml/min Glucose 117 H (74-106) mg/dL Calcium 8.6 (8.5-10.1) mg/dL Total Bilirubin 0.2 (0.2-1.0) mg/dL AST 10 L (15-37) IU/L ALT 15 (14-63) IU/L Alkaline Phosphatase 53 (46-116) U/L Total Protein 5.8 L (6.4-8.2) g/dL Albumin 2.6 L (3.4-5.0) g/dL Globulin 3.2 (2.6-4.0) g/dL Albumin/Globulin Ratio 0.8 L (0.9-1.6) Vancomycin Trough 13.3 H (5.0-10.0) ug/mL FLORA Results - Last 24 hrs: Microbiology 08/16/18 17:10 Urine Culture - Final Urine, Clean Catch MIXED ANEUDY <1000 CFU/ML 08/16/18 15:54 Aerobic Blood Culture - Preliminary Blood - Venous - Lab Draw NO GROWTH AFTER 1 DAY Anaerobic Blood Culture - Preliminary NO GROWTH AFTER 1 DAY 08/16/18 15:54 Aerobic Blood Culture - Preliminary Blood - Venous NO GROWTH AFTER 1 DAY Anaerobic Blood Culture - Preliminary NO GROWTH AFTER 1 DAY Med Orders - Current: Current Medications Acetaminophen (Tylenol) 650 mg PO Q4H PRN PRN Reason: Pain Last Admin: 08/18/18 07:40 Dose: 650 mg Albuterol/Ipratropium (Duoneb 3.0-0.5 Mg/3 Ml) 3 ml NEB Q4HRRT PRN PRN Reason: SOB/wheezing Enoxaparin Sodium (Lovenox) 40 mg SUBCUT Q24H [facility] Last Admin: 08/18/18 09:50 Dose: 40 mg Sodium Chloride (Normal Saline) 1,000 mls @ 75 mls/hr IV ASDIRECTED [facility] Last Admin: 08/18/18 08:49 Dose: 75 mls/hr Vancomycin HCl 1.5 gm/ Sodium (Chloride) 500 mls @ 333.333 mls/hr IV Q12H [facility] Last Admin: 08/18/18 11:27 Dose: 333.333 mls/hr Ibuprofen (Motrin) 600 mg PO Q6H PRN PRN Reason: Fever Last Admin: 08/17/18 22:30 Dose: 600 mg Morphine Sulfate (Morphine) 2 mg IVPUSH Q3H PRN PRN Reason: Pain Oxycodone HCl (Oxycodone) 5 mg PO Q4H PRN PRN Reason: Pain Last Admin: 08/18/18 12:06 Dose: 5 mg Sodium Chloride (Saline Flush) 10 ml FLUSH ASDIRECTED PRN PRN Reason: Keep Vein Open Sodium Chloride (Saline Flush) 2.5 ml FLUSH ASDIRECTED PRN PRN Reason: Keep Vein Open Temazepam (Restoril) 15 mg PO BEDTIME PRN PRN Reason: Sleep Last Admin: 08/17/18 23:21 Dose: 15 mg Vancomycin HCl (Pharmacy To Dose - Vancomycin) 1 dose .XX ASDIRECTED [facility] Discontinued Medications Heparin Sodium (Porcine) (Heparin Lock Flush 100 Units/Ml) 500 units FLUSH ONETIME ONE Stop: 08/18/18 13:31 Last Admin: 08/18/18 14:16 Dose: 500 units Piperacillin Sod/Tazobactam (Sod 3.375 gm/ Sodium Chloride) 50 mls @ 100 mls/ hr IV ONETIME ONE Stop: 08/16/18 16:22 Last Admin: 08/16/18 17:43 Dose: 100 mls/hr Sodium Chloride (Normal Saline) 2,000 mls @ 999 mls/hr IV STAT ONE Stop: 08/16/18 17:52 Last Admin: 08/16/18 16:10 Dose: 999 mls/hr Vancomycin HCl 1 gm/ Sodium (Chloride) 250 mls @ 250 mls/hr IV ONETIME ONE Stop: 08/16/18 16:51 Last Admin: 08/16/18 16:10 Dose: 250 mls/hr Sodium Chloride (Normal Saline) 1,000 mls @ 150 mls/hr IV ONETIME ONE Stop: 08/17/18 01:09 Last Admin: 08/16/18 18:46 Dose: 150 mls/hr Ibuprofen (Motrin) 400 mg PO ONETIME ONE Stop: 08/16/18 18:31 Last Admin: 08/16/18 18:45 Dose: 400 mg Iopamidol (Isovue-370 (76%)) 100 ml IVPUSH ONETIME ONE Stop: 08/16/18 17:33 Last Admin: 08/16/18 17:32 Dose: 100 ml Lidocaine/Epinephrine (Xylocaine 1% With Epinephrine 1:100,000) 20 ml INJECT ONETIME ONE Stop: 08/17/18 10:46 Last Admin: 08/17/18 11:15 Dose: 20 ml Potassium Chloride (Klor-Con M20) 20 meq PO ONETIME ONE Stop: 08/17/18 08:23 Last Admin: 08/17/18 09:09 Dose: 20 meq
[2018-08-18] MEDS: oxyCODONE 5 MG Tab PO PRN (12:06)
--- NOTE | 2018-08-18 12:11 | PCM.SURGPN ---
- General Info Date of Service: 08/18/18 Functional Status: Reports: Pain Controlled - Review of Systems General: Reports: No Symptoms - Patient Data Vitals - Most Recent: Last Vital Signs Temp 98.1 F 08/18/18 11:39 Pulse 72 08/18/18 11:39 Resp 18 08/18/18 11:39 BP 113/72 08/18/18 11:39 Pulse Ox 97 08/18/18 11:39 Weight - Most Recent: 265 lb I&O - Last 24 Hours: Intake & Output 08/17/18 08/18/18 08/18/18 22:59 06:59 14:59 Intake Total 1165 2496 500 Output Total 800 1500 Balance 365 996 500 Lab Results Last 24 Hrs: Laboratory Results - last 24 hr 08/18/18 08/18/18 08/18/18 Range/Units 06:31 06:31 09:46 WBC 9.93 (4.0-11.0) K/uL RBC 3.53 L (4.30-5.90) M/uL Hgb 10.4 L (12.0-16.0) g/dL Hct 31.2 L (36.0-46.0) % MCV 88.4 (80.0-98.0) fL MCH 29.5 (27.0-32.0) pg MCHC 33.3 (31.0-37.0) g/dL RDW Std Deviation 44.2 (28.0-62.0) fl RDW Coeff of Breanna 14 (11.0-15.0) % Plt Count 178 (150-400) K/uL MPV 8.30 (7.40-12.00) fL Neut % (Auto) 82.8 H (48.0-80.0) % Lymph % (Auto) 8.3 L (16.0-40.0) % [place] % (Auto) 6.9 (0.0-15.0) % Eos % (Auto) 1.8 (0.0-7.0) % Baso % (Auto) 0.2 (0.0-1.5) % Neut # (Auto) 8.2 H (1.4-5.7) K/uL Lymph # (Auto) 0.8 (0.6-2.4) K/uL [place] # (Auto) 0.7 (0.0-0.8) K/uL Eos # (Auto) 0.2 (0.0-0.7) K/uL Baso # (Auto) 0.0 (0.0-0.1) K/uL Nucleated RBC % 0.0 /100WBC Nucleated RBCs # 0 K/uL Sodium 142 (136-145) mmol/L Potassium 3.4 L (3.5-5.1) mmol/L Chloride 108 H (98-107) mmol/L Carbon Dioxide 24.6 (21.0-32.0) mmol/L BUN 11 (7.0-18.0) mg/dL Creatinine 0.7 (0.6-1.0) mg/dL Est Cr Clr Drug Dosing 72.66 mL/min Estimated GFR (MDRD) > 60.0 ml/min Glucose 117 H (74-106) mg/dL Calcium 8.6 (8.5-10.1) mg/dL Total Bilirubin 0.2 (0.2-1.0) mg/dL AST 10 L (15-37) IU/L ALT 15 (14-63) IU/L Alkaline Phosphatase 53 (46-116) U/L Total Protein 5.8 L (6.4-8.2) g/dL Albumin 2.6 L (3.4-5.0) g/dL Globulin 3.2 (2.6-4.0) g/dL Albumin/Globulin Ratio 0.8 L (0.9-1.6) Vancomycin Trough 13.3 H (5.0-10.0) ug/mL [place] Results Last 24 Hrs: Microbiology 08/16/18 17:10 Urine Culture - Final Urine, Clean Catch MIXED ANEUDY <1000 CFU/ML 08/16/18 15:54 Aerobic Blood Culture - Preliminary Blood - Venous - Lab Draw NO GROWTH AFTER 1 DAY Anaerobic Blood Culture - Preliminary NO GROWTH AFTER 1 DAY 08/16/18 15:54 Aerobic Blood Culture - Preliminary Blood - Venous NO GROWTH AFTER 1 DAY Anaerobic Blood Culture - Preliminary NO GROWTH AFTER 1 DAY Med Orders - Current: Current Medications Acetaminophen (Tylenol) 650 mg PO Q4H PRN PRN Reason: Pain Last Admin: 08/18/18 07:40 Dose: 650 mg Albuterol/Ipratropium (Duoneb 3.0-0.5 Mg/3 Ml) 3 ml NEB Q4HRRT PRN PRN Reason: SOB/wheezing Enoxaparin Sodium (Lovenox) 40 mg SUBCUT Q24H [facility] Last Admin: 08/18/18 09:50 Dose: 40 mg Sodium Chloride (Normal Saline) 1,000 mls @ 75 mls/hr IV ASDIRECTED [facility] Last Admin: 08/18/18 08:49 Dose: 75 mls/hr Vancomycin HCl 1.5 gm/ Sodium (Chloride) 500 mls @ 333.333 mls/hr IV Q12H [facility] Last Admin: 08/18/18 11:27 Dose: 333.333 mls/hr Ibuprofen (Motrin) 600 mg PO Q6H PRN PRN Reason: Fever Last Admin: 08/17/18 22:30 Dose: 600 mg Morphine Sulfate (Morphine) 2 mg IVPUSH Q3H PRN PRN Reason: Pain Oxycodone HCl (Oxycodone) 5 mg PO Q4H PRN PRN Reason: Pain Last Admin: 08/18/18 12:06 Dose: 5 mg Sodium Chloride (Saline Flush) 10 ml FLUSH ASDIRECTED PRN PRN Reason: Keep Vein Open Sodium Chloride (Saline Flush) 2.5 ml FLUSH ASDIRECTED PRN PRN Reason: Keep Vein Open Temazepam (Restoril) 15 mg PO BEDTIME PRN PRN Reason: Sleep Last Admin: 08/17/18 23:21 Dose: 15 mg Vancomycin HCl (Pharmacy To Dose - Vancomycin) 1 dose .XX ASDIRECTED [facility] Discontinued Medications Piperacillin Sod/Tazobactam (Sod 3.375 gm/ Sodium Chloride) 50 mls @ 100 mls/ hr IV ONETIME ONE Stop: 08/16/18 16:22 Last Admin: 08/16/18 17:43 Dose: 100 mls/hr Sodium Chloride (Normal Saline) 2,000 mls @ 999 mls/hr IV STAT ONE Stop: 08/16/18 17:52 Last Admin: 08/16/18 16:10 Dose: 999 mls/hr Vancomycin HCl 1 gm/ Sodium (Chloride) 250 mls @ 250 mls/hr IV ONETIME ONE Stop: 08/16/18 16:51 Last Admin: 08/16/18 16:10 Dose: 250 mls/hr Sodium Chloride (Normal Saline) 1,000 mls @ 150 mls/hr IV ONETIME ONE Stop: 08/17/18 01:09 Last Admin: 08/16/18 18:46 Dose: 150 mls/hr Ibuprofen (Motrin) 400 mg PO ONETIME ONE Stop: 08/16/18 18:31 Last Admin: 08/16/18 18:45 Dose: 400 mg Iopamidol (Isovue-370 (76%)) 100 ml IVPUSH ONETIME ONE Stop: 08/16/18 17:33 Last Admin: 08/16/18 17:32 Dose: 100 ml Lidocaine/Epinephrine (Xylocaine 1% With Epinephrine 1:100,000) 20 ml INJECT ONETIME ONE Stop: 08/17/18 10:46 Last Admin: 08/17/18 11:15 Dose: 20 ml Potassium Chloride (Klor-Con M20) 20 meq PO ONETIME ONE Stop: 08/17/18 08:23 Last Admin: 08/17/18 09:09 Dose: 20 meq - Exam Skin: Warm (R breast continue to come down on swelling, rash resolving,), Dry, Intact - Problem List Review Problem List Initiated/Reviewed/Updated: Yes - My Orders Last 24 Hours: Active Orders 24 hr Category Date Time Status Communication Order [RC] ROUTINE Care 08/17/18 11:19 Active May Shower [RC] ASDIRECTED Care 08/18/18 11:34 Active RT Aerosol Therapy [RC] ASDIRECTED Care 08/18/18 10:29 Active Ready for Discharge [RC] PER UNIT ROUTINE Care 08/18/18 11:56 Active Albuterol/Ipratropium [DuoNeb 3.0-0.5 MG/3 ML] Med 08/18/18 10:29 Active 3 ml NEB Q4HRRT PRN Ibuprofen [Motrin] Med 08/17/18 22:15 Active 600 mg PO Q6H PRN Obtain Home Medication List [OM.PC] Routine Oth 08/18/18 10:06 Ordered Medication Orders Acetaminophen (Tylenol) 650 mg PO Q4H PRN PRN Reason: Pain Last Admin: 08/18/18 07:40 Dose: 650 mg Admin: 08/17/18 21:20 Dose: 650 mg Admin: 08/17/18 13:56 Dose: 650 mg Admin: 08/17/18 09:09 Dose: 650 mg Admin: 08/16/18 22:42 Dose: 650 mg Albuterol/Ipratropium (Duoneb 3.0-0.5 Mg/3 Ml) 3 ml NEB Q4HRRT PRN PRN Reason: SOB/wheezing Enoxaparin Sodium (Lovenox) 40 mg SUBCUT Q24H [facility] Last Admin: 08/18/18 09:50 Dose: 40 mg Admin: 08/17/18 12:24 Dose: 40 mg Sodium Chloride (Normal Saline) 1,000 mls @ 75 mls/hr IV ASDIRECTED [facility] Last Admin: 08/18/18 08:49 Dose: 75 mls/hr Infusion: 08/18/18 06:48 Dose: 75 mls/hr Admin: 08/17/18 17:28 Dose: 75 mls/hr Infusion: 08/17/18 09:40 Dose: 75 mls/hr Admin: 08/16/18 20:20 Dose: 75 mls/hr Vancomycin HCl 1.5 gm/ Sodium (Chloride) 500 mls @ 333.333 mls/hr IV Q12H [facility] Last Admin: 08/18/18 11:27 Dose: 333.333 mls/hr Infusion: 08/17/18 23:38 Dose: 333.333 mls/hr Admin: 08/17/18 22:07 Dose: 333.333 mls/hr Infusion: 08/17/18 13:55 Dose: 333.333 mls/hr Admin: 08/17/18 12:24 Dose: 333.333 mls/hr Infusion: 08/17/18 00:05 Dose: 333.333 mls/hr Admin: 08/16/18 22:34 Dose: 333.333 mls/hr Ibuprofen (Motrin) 600 mg PO Q6H PRN PRN Reason: Fever Last Admin: 08/17/18 22:30 Dose: 600 mg Morphine Sulfate (Morphine) 2 mg IVPUSH Q3H PRN PRN Reason: Pain Oxycodone HCl (Oxycodone) 5 mg PO Q4H PRN PRN Reason: Pain Last Admin: 08/18/18 12:06 Dose: 5 mg Admin: 08/17/18 21:20 Dose: 5 mg Admin: 08/17/18 13:57 Dose: 5 mg Admin: 08/17/18 09:09 Dose: 5 mg Sodium Chloride (Saline Flush) 10 ml FLUSH ASDIRECTED PRN PRN Reason: Keep Vein Open Sodium Chloride (Saline Flush) 2.5 ml FLUSH ASDIRECTED PRN PRN Reason: Keep Vein Open Temazepam (Restoril) 15 mg PO BEDTIME PRN PRN Reason: Sleep Last Admin: 08/17/18 23:21 Dose: 15 mg Vancomycin HCl (Pharmacy To Dose - Vancomycin) 1 dose .XX ASDIRECTED [facility] - Assessment Assessment (Free Text/Narrative):: improved well to treatment, rash resolving, pain much better, wbc down to normal , temp resolved X 36 hr; agree w dc home on keflex; pls help pt to arrange her fu appt change to future date as her appt was original scheduled today with her surgeon. tks for the consult; fu w tx prn - Plan Plan (Free Text/Narrative):: improved well to treatment, rash resolving, pain much better, wbc down to normal , temp resolved X 36 hr; agree w dc home on keflex; pls help pt to arrange her fu appt change to future date as her appt was original scheduled today with her surgeon. tks for the consult; fu w tx prn
== END 2018-08-18 14:25 | disposition home or self-care (01) | DRG 711 ==
LOC: MW.ED 15:48 → MW.MS 18:46
PROVIDERS: ADMIT Internal Medicine; ATTEND Internal Medicine
PROC: 0J960ZZ Drainage of Chest Subcutaneous Tissue and Fascia, Open Approach (ICD-10-PCS; principal; 2018-08-17)
DX: T81.41XA Infection following a procedure, superficial incisional surgical site, initial encounter (principal); A41.9 Sepsis, unspecified organism; N61.1 Abscess of the breast and nipple; L76.34 Postprocedural seroma of skin and subcutaneous tissue following other procedure; Y83.8 Other surgical procedures as the cause of abnormal reaction of the patient, or of later complication, without mention of misadventure at the time of the procedure; F32.9 Major depressive disorder, single episode, unspecified; H54.7 Unspecified visual loss; I10 Essential (primary) hypertension; J45.909 Unspecified asthma, uncomplicated; F17.200 Nicotine dependence, unspecified, uncomplicated; Z98.1 Arthrodesis status; Z92.21 Personal history of antineoplastic chemotherapy; Z88.5 Allergy status to narcotic agent; Z79.899 Other long term (current) drug therapy; Z85.820 Personal history of malignant melanoma of skin; Z92.3 Personal history of irradiation; Z85.3 Personal history of malignant neoplasm of breast
CPT/HCPCS: 36415; 36600; 71260; 71260-26; 74177; 74177-26; 80048; 80053; 80202; 81001; 82803; 83605; 85025; 85610; 87040; 87070; 87077; 87086; 87186; 93005; 96361; 96365; 96367; 99285-25; A9270-GY; J1642; J1650; J2543; J3370; J7040; J7050; Q9967

== ENCOUNTER 2019-03-01 20:25 | Emergency (ER) | payer BC ==
[2019-03-01] MEDS ORDERED: Sodium Chloride 0.9% 10 ML Syringe FLUSH PRN ×2 (20:27→20:34)
[2019-03-01] MEDS ORDERED: Sodium Chloride 0.9% 2.5 ML Syringe FLUSH PRN ×2 (20:27→20:34)
[2019-03-01] MEDS ORDERED: Sodium Chloride 0.9% 1,000 ML IV ONE ×2 (20:27→20:34)
[2019-03-01] MEDS ORDERED: Naloxone 0.4 MG/ML Syringe IVPUSH ONE (20:35)
[2019-03-01] MEDS ORDERED: Ondansetron 4 MG/2 ML SDV IVPUSH ONE (20:35)
--- NOTE | 2019-03-01 20:45 | EDM.PDOC ---
ED HPI GENERAL MEDICAL PROBLEM - General Chief Complaint: Neuro Symptoms/Deficits Stated Complaint: AMB Time Seen by Provider: 03/01/19 20:25 - History of Present Illness INITIAL COMMENTS - FREE TEXT/NARRATIVE: HISTORY AND PHYSICAL: History of present illness: The patient is a 54-year-old female with a history of breast cancer and bony metastasis, rib fractures, which the daughter tells me she just finished chemotherapy and radiation at [facility] and who presents via EMS after being found in an outside hot tub with decreased mental status. According to EMS the patient posted on social media and also text added her niece that she was going to be drinking vodka and the text that the patient posted on social media was : nobody is helping me I can't find anybody to help me. The niece said that she found this disturbing so she notified local EMS and first responders found her in the hot tub not submerge but altered. They gave 8 mg of intranasal Narcan with minimal response. Our EMS was dispatched and says that she has been intermittently awake and answering questions and did tell them that she has cancer and they also noted that she has no inhaler at home but she says that she doesn't use medications regularly. She intermittently would become more unresponsive and have snoring respirations and then would wake up and answer more questions. Most of the history that I have obtained here is from her daughter as the patient is not verbal here and is not interacting with us. The daughter tells me that she definitely did drink vodka and sent a picture of the bottle of vodka to the daughter but is unclear how much she consumed and if she took any other medications or overdose. The daughter says she was concerned about a possible overdose in light of her recent sad emotions around her cancer. On arrival I cannot obtain any information from the patient. The patient's son has arrived after my initial history of present illness and says that she did finish chemotherapy and radiation and the breast cancer is on the right side but she is scheduled for a double mastectomy at [facility] in [place] on April 10 due to a lot of biopsy results and conflicting results. The patient takes tramadol OxyContin and temazepam per the son. He is concerned that she may have taken too many medications mixed with the alcohol causing today's events. Review of systems: As per history of present illness and below otherwise all systems reviewed and negative. Past medical history: As per history of present illness and as reviewed below otherwise noncontributory. Surgical history: As per history of present illness and as reviewed below otherwise noncontributory. Social history: No reported history of drug or alcohol abuse. Family history: As per history of present illness and as reviewed below otherwise noncontributory. Physical exam: General: Well-developed well-nourished female who is breathing spontaneously and maintaining her airway but was unresponsive. Her eyes are midline and she is not moving . [place] Coma Scale on arrival is a 3. The patient's head and hair is not wet but the remainder of her trunk body and underwear are wet. HEENT: Atraumatic, normocephalic, pupils approximately 3-4 mm and very sluggish , there is no evidence of any scalp or facial trauma,, negative for conjunctival pallor or scleral icterus, mucous membranes very dry, throat clear , neck supple, trachea midline. Lungs: Clear to auscultation is diminished breath sounds throughout and poor effort but there is no wheezing or stridor and no soft tissue injuries are appreciated on the chest wall , breath sounds equal bilaterally, chest nontender. Patient has a port in the Heart: S1S2, regular 8 and rhythm no overt murmurs Abdomen: Soft, nondistended, nontender. the abdomen is very globular and there is a large abdominal scar seen without any gross defects and bowel sounds are hypoactive. Pelvis: Stable 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: Deferred. Rectal: Occult temp was obtained and rectal tone is diminished with hard stool in the vault Extremities: Atraumatic no evidence of any external trauma is seen such as bruising ecchymosis bony defects or soft tissue swelling..vascular unremarkable. Neuro: patient is unresponsive to voice stimulation and has no spontaneous movement or eye movement. Tone is diminished throughout all extremities. Further exam is unable to be obtained skin: There is no evidence of any overt rashes or lesions and temperature is normal. Back: There are no midline step-offs or defects of the thoracic or lumbar spine no posterior rib defects or deformities no posterior pelvis defects or deformities and there is no soft tissue changes such as ecchymosis or abrasions or erythema. Breasts: Some irregularity and nodularity to the right breast and there is an axillary scar consistent with a node dissection that is well-healed. I do not appreciate any chest wall defects or deformities on the right side Diagnostics: EKG CT scan of the head chest x-ray CBC CMP lactic acid UA UDS troponin INR alcohol level CPK Tylenol and aspirin level ABG Therapeutics: IV O2 monitor IV fluids Zofran Narcan Haldol Anesthesia was notified that we would likely need elective intubation for airway protection because of the low [place] Coma Scale. Bear in route to the hospital and flight team is to put on standby Patient has returned from CT and is now a bit more interactive GCS=9 Early after returning from CAT scan the patient received 4 mg of Narcan and now is moving all extremities spontaneously and is still confused , withdrawing from any stimulation and not answering questions appropriately but she is opening her eyes spontaneously and is localizing her pain so her new GCS= 12 ; at this point we will continue to observe her and hold off elective intubation for airway management The patient is much more active on the bed and is not easily redirected to reduce activity. I will give a small dose of Haldol in light of the stated history of alcohol use per the son. I discussed testing results with the son at bedside and the patient is much more calm and sleeping after the small dose of Haldol. I explained to the son that we needed to not have her so hypermobile and at risk for falling off the bed or pulling off her monitor and her lines is why I needed to give her that medication. The patient has a nasal trumpet and pace but at this point I do not feel that she needs to be intubated and she is maintaining her airway. We do not have inappropriate ICU bed here for admission to our hospital and the son is aware that I will need to transfer her to [facility] for appropriate care and he is accepting. The son does tell me that she has passed out in the hot tub multiple times in the past and this does not surprise me. 2217: Case is discussed with Dr. Parada the ER physician at [facility] who accepts the patient for transfer and is aware of micheal's presentation and her testing results. He agrees grand transportation with ALS as appropriate. Critical care time excluding procedures:35min Impression: Altered mental status, alcohol intoxication and possible overdose of prescription medication; history of breast cancer Definitive disposition and diagnosis as appropriate pending reevaluation and review of above. - Related Data Allergies Allergy/AdvReac Type Severity Reaction Status Date / Time hydrocodone Allergy Itching Verified 03/01/19 20:34 Home Meds: Home Meds buPROPion HCl [Wellbutrin Xl] 0 mg PO QAM 08/18/18 [History] Temazepam [Restoril] 0 mg PO ASDIRECTED 03/01/19 [History] oxyCODONE 0 mg PO ASDIRECTED PRN 03/01/19 [History] traMADol [Ultram] 0 mg PO ASDIRECTED PRN 03/01/19 [History] traZODone HCl [Trazodone HCl] 0 mg PO ASDIRECTED 03/01/19 [History] Past Medical History HEENT History: Reports: Allergic Rhinitis, Impaired Vision Other HEENT History: wears glasses Cardiovascular History: Reports: None Respiratory History: Reports: None, Other (See Below) Gastrointestinal History: Reports: None 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: Reports: None [employer] History: Reports: Musculoskeletal History: Reports: Fracture Other Musculoskeletal History: hx of fx right foot and ankle Neurological History: Reports: None Psychiatric History: Reports: Depression Endocrine/Metabolic History: Reports: None Hematologic History: Reports: None Immunologic History: Reports: None Oncologic (Cancer) History: Reports: Breast, Malignant Melanoma Other Oncologic History: on face, no treatment after removal Dermatologic History: Reports: None - Infectious Disease History Infectious Disease History: Reports: None - Past Surgical History Head Surgeries/Procedures: Reports: None HEENT Surgical History: Reports: None Cardiovascular Surgical History: Reports: None Respiratory Surgical History: Reports: None GI Surgical History: Reports: Hernia, Abdominal Female Surgical History: Reports: Breast Biopsy, Other (See Below) Other Female Surgeries/Procedures: right lumpectomy and lymphadectomy Endocrine Surgical History: Reports: None Neurological Surgical History: Reports: Other (See Below) Other Neurological Surgeries/Procedures: spinale surgery Musculoskeletal Surgical History: Reports: ORIF, Other (See Below) Oncologic Surgical History: Reports: Biopsy of Breast, Lumpectomy Dermatological Surgical History: Reports: None Social & Family History - Family History Family Medical History: Noncontributory Cardiac: Reports: None - Caffeine Use Caffeine Use: Reports: Coffee Other Caffeine Use: 3 cups per day Caffeine Use Comment: couple cups a day ED ROS GENERAL - Review of Systems Review Of Systems: ROS reveals no pertinent complaints other than HPI. ED EXAM, GENERAL - Physical Exam Exam: See Below (see dictation) Course - Vital Signs Last Recorded V/S: Last Vital Signs Temp 36.7 C 03/01/19 20:25 Pulse 85 03/01/19 22:10 Resp 18 03/01/19 22:10 BP 114/78 03/01/19 22:10 Pulse Ox 94 L 03/01/19 22:10 - Orders/Labs/Meds Orders: Active Orders 24 hr Category Date Time Status Cardiac Monitoring [RC] . DIRECTED Care 03/01/19 20:33 Active EKG Documentation Completion [RC] STAT Care 03/01/19 20:27 Active Oxygen Therapy, ED [RC] ASDIRECTED Care 03/01/19 20:33 Active Pulse Oximetry [RC] ASDIRECTED Care 03/01/19 20:33 Active Sodium Chloride 0.9% [Normal Saline] 1,000 ml Med 03/01/19 21:45 Active IV ASDIRECTED Sodium Chloride 0.9% [Saline Flush] Med 03/01/19 20:27 Active 10 ml FLUSH ASDIRECTED PRN Sodium Chloride 0.9% [Saline Flush] Med 03/01/19 20:34 Active 10 ml FLUSH ASDIRECTED PRN Sodium Chloride 0.9% [Saline Flush] Med 03/01/19 20:27 Active 2.5 ml FLUSH ASDIRECTED PRN Sodium Chloride 0.9% [Saline Flush] Med 03/01/19 20:34 Active 2.5 ml FLUSH ASDIRECTED PRN Saline Lock Insert [OM.PC] Stat Oth 03/01/19 20:27 Ordered Saline Lock Insert [OM.PC] Stat Oth 03/01/19 20:33 Ordered Medication Orders Sodium Chloride (Normal Saline) 1,000 mls @ 125 mls/hr IV ASDIRECTED EARL Sodium Chloride (Saline Flush) 10 ml FLUSH ASDIRECTED PRN PRN Reason: Keep Vein Open Sodium Chloride (Saline Flush) 2.5 ml FLUSH ASDIRECTED PRN PRN Reason: Keep Vein Open Sodium Chloride (Saline Flush) 10 ml FLUSH ASDIRECTED PRN PRN Reason: Keep Vein Open Sodium Chloride (Saline Flush) 2.5 ml FLUSH ASDIRECTED PRN PRN Reason: Keep Vein Open Labs: Laboratory Tests 03/01/19 03/01/19 03/01/19 Range/Units 20:32 20:32 20:32 WBC 5.91 (4.0-11.0) K/uL RBC 4.45 (4.30-5.90) M/uL Hgb 13.3 (12.0-16.0) g/dL Hct 40.0 (36.0-46.0) % MCV 89.9 (80.0-98.0) fL MCH 29.9 (27.0-32.0) pg MCHC 33.3 (31.0-37.0) g/dL RDW Std Deviation 46.2 (28.0-62.0) fl RDW Coeff of Breanna 14 (11.0-15.0) % Plt Count 309 (150-400) K/uL MPV 8.20 (7.40-12.00) fL Neut % (Auto) 54.1 (48.0-80.0) % Lymph % (Auto) 33.7 (16.0-40.0) % Banks % (Auto) 7.8 (0.0-15.0) % Eos % (Auto) 3.6 (0.0-7.0) % Baso % (Auto) 0.8 (0.0-1.5) % Neut # (Auto) 3.2 (1.4-5.7) K/uL Lymph # (Auto) 2.0 (0.6-2.4) K/uL Banks # (Auto) 0.5 (0.0-0.8) K/uL Eos # (Auto) 0.2 (0.0-0.7) K/uL Baso # (Auto) 0.1 (0.0-0.1) K/uL Nucleated RBC % 0.0 /100WBC Nucleated RBCs # 0 K/uL INR ABG pH (7.35-7.45) ABG pCO2 (35-45) mmHG ABG pO2 (75-100) mmHG ABG HCO3 ABG Total CO2 ABG Base Excess Lactate 2.0 (0.20-2.00) mmol/L Sodium 142 (136-145) mmol/L Potassium 3.6 (3.5-5.1) mmol/L Chloride 105 (98-107) mmol/L Carbon Dioxide 23.4 (21.0-32.0) mmol/L BUN 11 (7.0-18.0) mg/dL Creatinine 0.5 L (0.6-1.0) mg/dL Est Cr Clr Drug Dosing TNP Estimated GFR (MDRD) > 60.0 ml/min Glucose 101 (74-106) mg/dL Calcium 8.3 L (8.5-10.1) mg/dL Total Bilirubin 0.1 L (0.2-1.0) mg/dL AST 16 (15-37) IU/L ALT 21 (14-63) IU/L Alkaline Phosphatase 79 (46-116) U/L Creatine Kinase (26-308) U/L Troponin I < 0.050 (0.000-0.056) ng/mL Total Protein 7.0 (6.4-8.2) g/dL Albumin 3.6 (3.4-5.0) g/dL Globulin 3.4 (2.6-4.0) g/dL Albumin/Globulin Ratio 1.1 (0.9-1.6) Urine Color Urine Appearance Urine pH (5.0-8.0) Ur Specific [place] (1.001-1.035) Urine Protein (NEGATIVE) mg/dL Urine Glucose (UA) (NEGATIVE) mg/dL Urine Ketones (NEGATIVE) mg/dL Urine Occult Blood (NEGATIVE) Urine Nitrite (NEGATIVE) Urine Bilirubin (NEGATIVE) Urine Urobilinogen (<2.0) EU/dL Ur Leukocyte Esterase (NEGATIVE) Salicylates 3.5 (0-20) mg/dL Urine Opiates Screen (NEGATIVE) Ur Oxycodone Screen (NEGATIVE) Urine Methadone Screen (NEGATIVE) Acetaminophen <2.0 ug/mL Ur Barbiturates Screen (NEGATIVE) Ur Phencyclidine Scrn (NEGATIVE) Ur Amphetamine Screen (NEGATIVE) U Methamphetamines Scrn (NEGATIVE) U Benzodiazepines Scrn (NEGATIVE) U Cocaine Metab Screen (NEGATIVE) U Marijuana (THC) Screen (NEGATIVE) Ethyl Alcohol 200 mg/dL 03/01/19 03/01/19 03/01/19 Range/Units 20:32 20:32 21:00 WBC (4.0-11.0) K/uL RBC (4.30-5.90) M/uL Hgb (12.0-16.0) g/dL Hct (36.0-46.0) % MCV (80.0-98.0) fL MCH (27.0-32.0) pg MCHC (31.0-37.0) g/dL RDW Std Deviation (28.0-62.0) fl RDW Coeff of Breanna (11.0-15.0) % Plt Count (150-400) K/uL MPV (7.40-12.00) fL Neut % (Auto) (48.0-80.0) % Lymph % (Auto) (16.0-40.0) % Banks % (Auto) (0.0-15.0) % Eos % (Auto) (0.0-7.0) % Baso % (Auto) (0.0-1.5) % Neut # (Auto) (1.4-5.7) K/uL Lymph # (Auto) (0.6-2.4) K/uL Banks # (Auto) (0.0-0.8) K/uL Eos # (Auto) (0.0-0.7) K/uL Baso # (Auto) (0.0-0.1) K/uL Nucleated RBC % /100WBC Nucleated RBCs # K/uL INR 0.90 ABG pH (7.35-7.45) ABG pCO2 (35-45) mmHG ABG pO2 (75-100) mmHG ABG HCO3 ABG Total CO2 ABG Base Excess Lactate (0.20-2.00) mmol/L Sodium (136-145) mmol/L Potassium (3.5-5.1) mmol/L Chloride (98-107) mmol/L Carbon Dioxide (21.0-32.0) mmol/L BUN (7.0-18.0) mg/dL Creatinine (0.6-1.0) mg/dL Est Cr Clr Drug Dosing Estimated GFR (MDRD) ml/min Glucose (74-106) mg/dL Calcium (8.5-10.1) mg/dL Total Bilirubin (0.2-1.0) mg/dL AST (15-37) IU/L ALT (14-63) IU/L Alkaline Phosphatase (46-116) U/L Creatine Kinase 101 (26-308) U/L Troponin I (0.000-0.056) ng/mL Total Protein (6.4-8.2) g/dL Albumin (3.4-5.0) g/dL Globulin (2.6-4.0) g/dL Albumin/Globulin Ratio (0.9-1.6) Urine Color YELLOW Urine Appearance CLEAR Urine pH 5.0 (5.0-8.0) Ur Specific [place] <= 1.005 (1.001-1.035) Urine Protein NEGATIVE (NEGATIVE) mg/dL Urine Glucose (UA) NEGATIVE (NEGATIVE) mg/dL Urine Ketones NEGATIVE (NEGATIVE) mg/dL Urine Occult Blood NEGATIVE (NEGATIVE) Urine Nitrite NEGATIVE (NEGATIVE) Urine Bilirubin NEGATIVE (NEGATIVE) Urine Urobilinogen 0.2 (<2.0) EU/dL Ur Leukocyte Esterase NEGATIVE (NEGATIVE) Salicylates (0-20) mg/dL Urine Opiates Screen (NEGATIVE) Ur Oxycodone Screen (NEGATIVE) Urine Methadone Screen (NEGATIVE) Acetaminophen ug/mL Ur Barbiturates Screen (NEGATIVE) Ur Phencyclidine Scrn (NEGATIVE) Ur Amphetamine Screen (NEGATIVE) U Methamphetamines Scrn (NEGATIVE) U Benzodiazepines Scrn (NEGATIVE) U Cocaine Metab Screen (NEGATIVE) U Marijuana (THC) Screen (NEGATIVE) Ethyl Alcohol mg/dL 03/01/19 03/01/19 Range/Units 21:00 21:05 WBC (4.0-11.0) K/uL RBC (4.30-5.90) M/uL Hgb (12.0-16.0) g/dL Hct (36.0-46.0) % MCV (80.0-98.0) fL MCH (27.0-32.0) pg MCHC (31.0-37.0) g/dL RDW Std Deviation (28.0-62.0) fl RDW Coeff of Breanna (11.0-15.0) % Plt Count (150-400) K/uL MPV (7.40-12.00) fL Neut % (Auto) (48.0-80.0) % Lymph % (Auto) (16.0-40.0) % Banks % (Auto) (0.0-15.0) % Eos % (Auto) (0.0-7.0) % Baso % (Auto) (0.0-1.5) % Neut # (Auto) (1.4-5.7) K/uL Lymph # (Auto) (0.6-2.4) K/uL Banks # (Auto) (0.0-0.8) K/uL Eos # (Auto) (0.0-0.7) K/uL Baso # (Auto) (0.0-0.1) K/uL Nucleated RBC % /100WBC Nucleated RBCs # K/uL INR ABG pH 7.299 L (7.35-7.45) ABG pCO2 50 H (35-45) mmHG ABG pO2 99 (75-100) mmHG ABG HCO3 24.3 ABG Total CO2 26 ABG Base Excess -2 Lactate (0.20-2.00) mmol/L Sodium (136-145) mmol/L Potassium (3.5-5.1) mmol/L Chloride (98-107) mmol/L Carbon Dioxide (21.0-32.0) mmol/L BUN (7.0-18.0) mg/dL Creatinine (0.6-1.0) mg/dL Est Cr Clr Drug Dosing Estimated GFR (MDRD) ml/min Glucose (74-106) mg/dL Calcium (8.5-10.1) mg/dL Total Bilirubin (0.2-1.0) mg/dL AST (15-37) IU/L ALT (14-63) IU/L Alkaline Phosphatase (46-116) U/L Creatine Kinase (26-308) U/L Troponin I (0.000-0.056) ng/mL Total Protein (6.4-8.2) g/dL Albumin (3.4-5.0) g/dL Globulin (2.6-4.0) g/dL Albumin/Globulin Ratio (0.9-1.6) Urine Color Urine Appearance Urine pH (5.0-8.0) Ur Specific [place] (1.001-1.035) Urine Protein (NEGATIVE) mg/dL Urine Glucose (UA) (NEGATIVE) mg/dL Urine Ketones (NEGATIVE) mg/dL Urine Occult Blood (NEGATIVE) Urine Nitrite (NEGATIVE) Urine Bilirubin (NEGATIVE) Urine Urobilinogen (<2.0) EU/dL Ur Leukocyte Esterase (NEGATIVE) Salicylates (0-20) mg/dL Urine Opiates Screen NEGATIVE (NEGATIVE) Ur Oxycodone Screen NEGATIVE (NEGATIVE) Urine Methadone Screen NEGATIVE (NEGATIVE) Acetaminophen ug/mL Ur Barbiturates Screen NEGATIVE (NEGATIVE) Ur Phencyclidine Scrn NEGATIVE (NEGATIVE) Ur Amphetamine Screen NEGATIVE (NEGATIVE) U Methamphetamines Scrn NEGATIVE (NEGATIVE) U Benzodiazepines Scrn POSITIVE (NEGATIVE) U Cocaine Metab Screen NEGATIVE (NEGATIVE) U Marijuana (THC) Screen NEGATIVE (NEGATIVE) Ethyl Alcohol mg/dL Meds: Medications Generic Name Dose Route Start Last Admin Trade Name Freq PRN Reason Stop Dose Admin Sodium Chloride 1,000 mls @ 125 mls/hr 03/01/19 21:45 Normal Saline IV ASDIRECTED EARL Sodium Chloride 10 ml 03/01/19 20:27 Saline Flush FLUSH ASDIRECTED PRN Keep Vein Open Sodium Chloride 2.5 ml 03/01/19 20:27 Saline Flush FLUSH ASDIRECTED PRN Keep Vein Open Sodium Chloride 10 ml 03/01/19 20:34 Saline Flush FLUSH ASDIRECTED PRN Keep Vein Open Sodium Chloride 2.5 ml 03/01/19 20:34 Saline Flush FLUSH ASDIRECTED PRN Keep Vein Open Discontinued Medications Generic Name Dose Route Start Last Admin Trade Name Freq PRN Reason Stop Dose Admin Haloperidol Lactate Confirm 03/01/19 20:57 03/01/19 21:42 Haldol Administered 03/01/19 20:58 Not Given Dose 5 mg .ROUTE .STK-MED ONE Haloperidol Lactate 5 mg 03/01/19 21:30 03/01/19 21:37 Haldol IM 03/01/19 21:31 5 mg ONETIME ONE Administration Sodium Chloride 1,000 mls @ 999 mls/hr 03/01/19 20:27 03/01/19 21:21 Normal Saline IV 03/01/19 21:27 999 mls/hr STAT ONE Administration Sodium Chloride 1,000 mls @ 999 mls/hr 03/01/19 20:34 03/01/19 21:20 Normal Saline IV 03/01/19 21:34 999 mls/hr STAT ONE Administration Naloxone HCl 4 mg 03/01/19 20:35 03/01/19 21:22 Narcan IVPUSH 03/01/19 20:36 4 mg ONETIME ONE Administration Ondansetron HCl 4 mg 03/01/19 20:35 03/01/19 21:23 Zofran IVPUSH 03/01/19 20:36 4 mg ONETIME ONE Administration Departure - Departure Time of Disposition: 22:26 Disposition: DC/Tfer to Acute Hospital 02 Condition: Serious Clinical Impression: Drug ingestion Altered mental status Qualifiers: Altered mental status type: unspecified Qualified Code(s): R41.82 - Altered mental status, unspecified Alcohol intoxication Qualifiers: Complication of substance-induced condition: with unspecified complication Qualified Code(s): F10.929 - Alcohol use, unspecified with intoxication, unspecified - Discharge Information Referrals: PCP,None [Primary Care Provider] - Forms: ED Department Discharge - My Orders Last 24 Hours: My Active Orders 03/01/19 20:33 Cardiac Monitoring [RC] . DIRECTED Oxygen Therapy, ED [RC] ASDIRECTED Pulse Oximetry [RC] ASDIRECTED Saline Lock Insert [OM.PC] Stat 03/01/19 20:34 Sodium Chloride 0.9% [Saline Flush] 10 ml FLUSH ASDIRECTED PRN Sodium Chloride 0.9% [Saline Flush] 2.5 ml FLUSH ASDIRECTED PRN 03/01/19 21:45 Sodium Chloride 0.9% [Normal Saline] 1,000 ml IV ASDIRECTED - Assessment/Plan Last 24 Hours: My Active Orders 03/01/19 20:33 Cardiac Monitoring [RC] . DIRECTED Oxygen Therapy, ED [RC] ASDIRECTED Pulse Oximetry [RC] ASDIRECTED Saline Lock Insert [OM.PC] Stat 03/01/19 20:34 Sodium Chloride 0.9% [Saline Flush] 10 ml FLUSH ASDIRECTED PRN Sodium Chloride 0.9% [Saline Flush] 2.5 ml FLUSH ASDIRECTED PRN 03/01/19 21:45 Sodium Chloride 0.9% [Normal Saline] 1,000 ml IV ASDIRECTED
[2019-03-01] MEDS ORDERED: Haloperidol Lactate 5 MG/ML SDV ONE (20:57)
--- NOTE | 2019-03-01 20:58 | CT ---
INDICATION: Unresponsive TECHNIQUE: CT head without contrast. COMPARISON: None available FINDINGS: There is mild age-related cortical volume loss. The ventricles are within normal limits for the patient`s age. There is no mass effect or midline shift. There are small low-density foci in the right frontal and left parietal subcortical white matter on image 37 of series 201, and few additional ill-defined small foci of subcortical white matter hypodensity in the frontal lobes more inferiorly, nonspecific. There is no loss of johns-white differentiation. There is no evidence of an acute intracranial hemorrhage. No acute calvarial fracture is seen. There is mild maxillary sinus mucosal disease. The mastoid air cells are clear. The visualized orbits are within normal limits. The adenoids are enlarged. IMPRESSION: No evidence of an acute intracranial hemorrhage, mass effect or loss of johns-white differentiation. Small subcortical white matter hypodensities, nonspecific, which could represent chronic small vessel ischemic changes in a patient of this age, although other etiologies, including infectious/inflammatory, demyelinating, or vasculitic processes, are not excluded. Correlate clinically and, if indicated, consider MRI evaluation. Dictated by Sukumar Rios MD @ 03/01/2019 8:57:06 PM Please note that all CT scans at this facility use dose modulation, iterative reconstruction, and/or weight-based dosing when appropriate to reduce radiation dose to as low as reasonably achievable. Dictated by: Sukumar Rios MD @ 03/01/2019 20:57:10 (Electronically Signed)
[2019-03-01 21:05] LABS: BLOOD UREA NITROGEN,BUN 11 mg/dL (7.0-18.0); CARBON DIOXIDE,CO2 23.4 mmol/L (21.0-32.0); CHLORIDE,CL 105 mmol/L (98-107); GLUCOSE RANDOM 101 mg/dL (74-106); POTASSIUM,K 3.6 mmol/L (3.5-5.1); SODIUM,NA 142 mmol/L (136-145)
[2019-03-01 21:17] LABS: ACETAMINOPHEN <2.0 ug/mL
--- NOTE | 2019-03-01 21:27 | CR ---
Indication: Unresponsive Technique: Chest 1 view Comparison: 08/03/2017 Findings/Impression: Cardiovascular and mediastinum: Grossly stable cardiomediastinal silhouettes, allowing for differences in technique. Lungs and pleural space: A pad overlying the right hemithorax. No gross consolidation or pleural effusions. Bones and soft tissues: A left chest Port-A-Cath and postsurgical changes in the cervical spine, again seen. Mild focal expansile deformities involving the posterior left 6th and 7th ribs which could represent old fractures. Dictated by Sukumar Rios MD @ 03/01/2019 9:24:56 PM Dictated by: Sukumar Rios MD @ 03/01/2019 21:25:03 (Electronically Signed)
[2019-03-01] MEDS ORDERED: Haloperidol Lactate 5 MG/ML SDV IM ONE (21:30)
[2019-03-01] MEDS ORDERED: Sodium Chloride 0.9% 1,000 ML IV SCH (21:45)
[2019-03-01 22:56] VITALS: BP 147/74; PULSE 86
== END 2019-03-01 23:19 ==
LOC: MW.ED 20:25
DX: T50.901A Poisoning by unspecified drugs, medicaments and biological substances, accidental (unintentional), initial encounter (principal); R41.82 Altered mental status, unspecified; F10.129 Alcohol abuse with intoxication, unspecified; Y90.7 Blood alcohol level of 200-239 mg/100 ml; F32.9 Major depressive disorder, single episode, unspecified; Z88.5 Allergy status to narcotic agent; Z85.3 Personal history of malignant neoplasm of breast
CPT/HCPCS: 36415; 36600; 70450; 71045; 80053; 80305; 80320; 80329; 81003; 82550; 82803; 83605; 84484; 85025; 85610; 93005; 96361; 96374; 96375; 99285; A9270; J1630; J2405; J7040; G0480

== ENCOUNTER 2020-11-24 20:07 | Observation (INO) | payer SELFPAY ==
[2020-11-24] MEDS ORDERED: Lactated Ringers 1,000 ML IV SCH (20:45)
[2020-11-24 21:22] LABS: BLOOD UREA NITROGEN,BUN 10 mg/dL (7.0-18.0); CARBON DIOXIDE,CO2 28.6 mmol/L (21.0-32.0); CHLORIDE,CL 103 mmol/L (98-107); GLUCOSE RANDOM 112 mg/dL (74-106); POTASSIUM,K 3.9 mmol/L (3.5-5.1); SODIUM,NA 141 mmol/L (136-145)
[2020-11-24] MEDS ORDERED: Iopamidol 755 Mg/ML 100 ML Bottle IVPUSH ONE (21:37)
--- NOTE | 2020-11-24 23:09 | CT ---
For Patients: As a result of the Century Cures Act, medical imaging exams and procedure reports are released immediately into your electronic medical record. You may view this report before your referring provider. If you have questions, please contact your health care provider. INDICATION: Abdominal pain with distension TECHNIQUE: CT Abdomen and pelvis with i.v. contrast. Coronal and sagittal reformats were obtained. CONTRAST: 100 mL Isovue 370 COMPARISON: None FINDINGS: Lower chest: Mild discoid atelectasis is present in the right lower lobe. Liver: Unremarkable. Spleen: There is a nonspecific hypodense lesion in the posterior spleen measuring 1.3 cm without interval change. Pancreas: Unremarkable. Gallbladder: Unremarkable. Kidney: Unremarkable. No kidney or ureteral stones or obstruction seen. Adrenal: Unremarkable. Bowel: Fluid filled nondilated small bowel loops are present with transition point likely in the right upper quadrant. Mild fluid distention of the stomach is noted. The appendix is not identified. Vascular: Unremarkable. Lymph: Unremarkable. Peritoneum: Unremarkable. No pneumoperitoneum is seen. A small amount of pelvic ascites is seen. Pelvis: Unremarkable. Soft tissue: Unremarkable. Bone: Unremarkable for age. Miscellaneous: A small amount of gas is present with infiltration of the anterior midline abdominal fat, likely from recent surgery. IMPRESSION: 1. Fluid filled nondilated small bowel loops are present with transition point likely in the right upper quadrant. Findings are suspicious for mechanical small-bowel obstruction. Adynamic ileus is considered less likely. Dictated by Yossi Mcfadden MD @ 11/24/2020 11:07:32 PM Please note that all CT scans at this facility use dose modulation, iterative reconstruction, and/or weight-based dosing when appropriate to reduce radiation dose to as low as reasonably achievable. Dictated by: Yossi Mcfadden MD @ 11/24/2020 23:07:38 (Electronically Signed)
[2020-11-24] MEDS ORDERED: Ondansetron 4 MG/2 ML SDV IVPUSH ONE (23:58)
[2020-11-25] MEDS ORDERED: Scopolamine 1.5 MG Transdermal Patch TRDERM PRN (01:19)
[2020-11-25] MEDS ORDERED: Promethazine 25 MG/ML SDV IM PRN (01:19)
[2020-11-25] MEDS ORDERED: Acetaminophen 1,000 MG in Premix Bag 1 BAG IV PRN (01:21)
[2020-11-25] MEDS: Lactated Ringers 1,000 ML IV SCH ×3 (01:30→17:41)
--- NOTE | 2020-11-25 05:46 | PCM.EKG ---
#1 Interpretation EKG Date: 11/24/20 Time: 20:46 Rhythm: NSR Rate (Beats/Min): 71 [place]: Normal P-Wave: Present QRS: Normal ST-T: Normal (T wave inversion III, AVF) QT: Normal Comparison: No Change (03/01/16) EKG Interpretation Comments: SInuS Rhythm with nonspecific T wave inversion
[2020-11-25 06:30] LABS: BLOOD UREA NITROGEN,BUN 11 mg/dL (7.0-18.0); CARBON DIOXIDE,CO2 27.2 mmol/L (21.0-32.0); CHLORIDE,CL 105 mmol/L (98-107); GLUCOSE RANDOM 110 mg/dL (74-106); POTASSIUM,K 3.9 mmol/L (3.5-5.1); SODIUM,NA 141 mmol/L (136-145)
--- NOTE | 2020-11-25 07:04 | PCM.HP.2 ---
H&P History of Present Illness - General Date of Service: 11/25/20 Admit Problem/Dx: Admission Diagnosis/Problem Admission Diagnosis/Problem Small bowel obstruction Source of Information: Patient History Limitations: Reports: No Limitations - History of Present Illness Initial Comments - Free Text/Narative: patient is a 55-year-old female who presented to the emergency room last night with intractable nausea and vomiting. Her past medical history is significant for breast cancer, COPD and multiple abdominal surgeries including subsequent hernia repairs with mesh. She was seen at [facility] in [facility] on November 17 for a strangulated recurrent ventral hernia. She underwent an exploratory laparotomy. When they opened the patient the small intestine had reduced itself. It appeared to be intact and viable. She had a primary repair of a 3 cm ventral hernia. She was discharged home the next day. The patient states that she has not felt well since surgery. She has felt bloated with a poor appetite. She was seen in surgery clinic yesterday. They removed the drain. She states that she told them she did not feel well, but was reassured that this was normal post-o perative symptoms. She drove home and started vomiting last evening. This was associated with increased abdominal pain. She vomited multiple times then called EMS. They gave her IV pain medications with improvement in her discomfort. Her vitals were stable on arrival to the ER. Her CMP was normal. CBC showed no elevated WBC. CT abdomen pelvis showed "fluid-filled nondilated small bowel loops present with a transition point likely in the right upper quadrant. Findings suspicious for mechanical small bowel obstruction. Adynamic ileus considered less likely." She had no further nausea and was not vomiting during her ER course. She states that she last had a small BM yesterday morning. abd Pain Score (Numeric/FACES): 10 - Related Data Allergies/Adverse Reactions: Allergies Allergy/AdvReac Type Severity Reaction Status Date / Time oxycodone Allergy Mild Rash Verified 11/25/20 01:24 hydrocodone Allergy Itching Verified 11/25/20 01:24 Home Medications: Home Meds buPROPion HCL [Wellbutrin Xl] 0 mg PO QAM 08/18/18 [History] Desvenlafaxine Succinate [Desvenlafaxine Succinate ER] 100 mg PO DAILY 11/24/20 [History] Methylphenidate [Ritalin] 5 mg PO DAILY 11/24/20 [History] Oxybutynin 5 mg PO DAILY 11/24/20 [History] Past Medical History HEENT History: Reports: Allergic Rhinitis, Impaired Vision Other HEENT History: wears glasses Cardiovascular History: Reports: None Respiratory History: Reports: None, Other (See Below) Gastrointestinal History: Reports: None 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: Reports: None 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: Musculoskeletal History: Reports: Fracture Other Musculoskeletal History: hx of fx right foot and ankle Neurological History: Reports: None Psychiatric History: Reports: Depression Endocrine/Metabolic History: Reports: None Hematologic History: Reports: None Immunologic History: Reports: None Oncologic (Cancer) History: Reports: Breast, Malignant Melanoma Other Oncologic History: on face, no treatment after removal Dermatologic History: Reports: None - Infectious Disease History Infectious Disease History: Reports: None - Past Surgical History Head Surgeries/Procedures: Reports: None HEENT Surgical History: Reports: None Cardiovascular Surgical History: Reports: None Respiratory Surgical History: Reports: None GI Surgical History: Reports: Hernia, Abdominal Other GI Surgeries/Procedures: hernia repair x2 Female Surgical History: Reports: Breast Biopsy, Other (See Below) Other Female Surgeries/Procedures: right lumpectomy and lymphadectomy Endocrine Surgical History: Reports: None Neurological Surgical History: Reports: Other (See Below) Other Neurological Surgeries/Procedures: spinale surgery Musculoskeletal Surgical History: Reports: ORIF, Other (See Below) Other Musculoskeletal Surgeries/Procedures:: ORIF right ankle with hardware removal , hx of bone graft to wrist Oncologic Surgical History: Reports: Biopsy of Breast, Lumpectomy Dermatological Surgical History: Reports: None Social & Family History - Family History Family Medical History: No Pertinent Family History Cardiac: Reports: None - Tobacco Use Tobacco Use Status *Q: Current Some Day Tobacco User Years of Tobacco use: 40 Packs/Tins Daily: 0.5 - Caffeine Use Caffeine Use: Reports: Coffee Other Caffeine Use: 3 cups per day Caffeine Use Comment: couple cups a day - Recreational Drug Use Recreational Drug Use: No H&P Review of Systems - Review of Systems: Review Of Systems: Comprehensive ROS is negative, except as noted in HPI. Exam - Exam Exam: See Below - Vital Signs Vital Signs: Last Vital Signs Temp 37.2 C 11/25/20 04:00 Pulse 73 11/25/20 04:00 Resp 18 11/25/20 04:00 BP 155/75 H 11/25/20 04:00 Pulse Ox 93 L 11/25/20 04:00 Weight: 85.956 kg - Exam Quality Assessment: Supplemental Oxygen General: Alert, Oriented HEENT: Conjunctiva Clear, Mucosa Moist & [place], Posterior Pharynx Clear Neck: Supple, Trachea Midline Lungs: Clear to Auscultation, Normal Respiratory Effort Cardiovascular: Regular Rate, Regular Rhythm GI/Abdominal Exam: Non-Tender, Distended, Abnormal Bowel Sounds, Other (well healed midline incision ). No: Guarding, Rigid, Rebound Extremities: Normal Inspection, Normal Range of Motion - Patient Data Lab Results Last 24 hrs: Laboratory Results - last 24 hr 11/24/20 11/24/20 11/24/20 Range/Units 20:52 20:52 20:52 WBC 7.49 (4.0-11.0) K/uL RBC 4.81 (4.30-5.90) M/uL Hgb 14.1 (12.0-16.0) g/dL Hct 42.7 (36.0-46.0) % MCV 88.8 (80.0-98.0) fL MCH 29.3 (27.0-32.0) pg MCHC 33.0 (31.0-37.0) g/dL RDW Std Deviation 44.8 (28.0-62.0) fl RDW Coeff of Breanna 14 (11.0-15.0) % Plt Count 380 (150-400) K/uL MPV 9.00 (7.40-12.00) fL Neut % (Auto) 83.0 H (48.0-80.0) % Lymph % (Auto) 8.0 L (16.0-40.0) % [place] % (Auto) 6.4 (0.0-15.0) % Eos % (Auto) 2.1 (0.0-7.0) % Baso % (Auto) 0.5 (0.0-1.5) % Neut # (Auto) 6.2 H (1.4-5.7) K/uL Lymph # (Auto) 0.6 (0.6-2.4) K/uL [place] # (Auto) 0.5 (0.0-0.8) K/uL Eos # (Auto) 0.2 (0.0-0.7) K/uL Baso # (Auto) 0.0 (0.0-0.1) K/uL Nucleated RBC % 0.0 /100WBC Nucleated RBCs # 0 K/uL Sodium 141 (136-145) mmol/L Potassium 3.9 (3.5-5.1) mmol/L Chloride 103 (98-107) mmol/L Carbon Dioxide 28.6 (21.0-32.0) mmol/L BUN 10 (7.0-18.0) mg/dL Creatinine 0.9 (0.6-1.0) mg/dL Est Cr Clr Drug Dosing 55.20 mL/min Estimated GFR (MDRD) > 60.0 ml/min Glucose 112 H (74-106) mg/dL Lactic Acid 0.9 (0.4-2.0) mmol/L Calcium 9.1 (8.5-10.1) mg/dL Total Bilirubin 0.3 (0.2-1.0) mg/dL AST 21 (15-37) IU/L ALT 33 (14-63) IU/L Alkaline Phosphatase 65 (46-116) U/L Troponin I < 0.050 (0.000-0.056) ng/mL Total Protein 7.2 (6.4-8.2) g/dL Albumin 3.6 (3.4-5.0) g/dL Globulin 3.6 (2.6-4.0) g/dL Albumin/Globulin Ratio 1.0 (0.9-1.6) SARS-CoV-2 RNA (GUILHERME) (NEGATIVE) 11/24/20 11/25/20 11/25/20 Range/Units 23:53 05:43 05:43 WBC 6.35 (4.0-11.0) K/uL RBC 4.43 (4.30-5.90) M/uL Hgb 12.8 (12.0-16.0) g/dL Hct 39.5 (36.0-46.0) % MCV 89.2 (80.0-98.0) fL MCH 28.9 (27.0-32.0) pg MCHC 32.4 (31.0-37.0) g/dL RDW Std Deviation 45.8 (28.0-62.0) fl RDW Coeff of Breanna 14 (11.0-15.0) % Plt Count 375 (150-400) K/uL MPV 9.00 (7.40-12.00) fL Neut % (Auto) 66.0 (48.0-80.0) % Lymph % (Auto) 18.7 (16.0-40.0) % [place] % (Auto) 10.9 (0.0-15.0) % Eos % (Auto) 3.9 (0.0-7.0) % Baso % (Auto) 0.5 (0.0-1.5) % Neut # (Auto) 4.2 (1.4-5.7) K/uL Lymph # (Auto) 1.2 (0.6-2.4) K/uL [place] # (Auto) 0.7 (0.0-0.8) K/uL Eos # (Auto) 0.3 (0.0-0.7) K/uL Baso # (Auto) 0.0 (0.0-0.1) K/uL Nucleated RBC % 0.0 /100WBC Nucleated RBCs # 0 K/uL Sodium 141 (136-145) mmol/L Potassium 3.9 (3.5-5.1) mmol/L Chloride 105 (98-107) mmol/L Carbon Dioxide 27.2 (21.0-32.0) mmol/L BUN 11 (7.0-18.0) mg/dL Creatinine 0.8 (0.6-1.0) mg/dL Est Cr Clr Drug Dosing 62.10 mL/min Estimated GFR (MDRD) > 60.0 ml/min Glucose 110 H (74-106) mg/dL Lactic Acid (0.4-2.0) mmol/L Calcium 8.6 (8.5-10.1) mg/dL Total Bilirubin (0.2-1.0) mg/dL AST (15-37) IU/L ALT (14-63) IU/L Alkaline Phosphatase (46-116) U/L Troponin I (0.000-0.056) ng/mL Total Protein (6.4-8.2) g/dL Albumin (3.4-5.0) g/dL Globulin (2.6-4.0) g/dL Albumin/Globulin Ratio (0.9-1.6) SARS-CoV-2 RNA (GUILHERME) NEGATIVE (NEGATIVE) Result Diagrams: 11/25/20 05:43 11/25/20 05:43 Sepsis Event Note - Evaluation Sepsis Screening Result: No Definite Risk - Focused Exam Vital Signs: Vital Signs Temp Pulse Resp BP Pulse Ox 11/25/20 04:00 37.2 C 73 18 155/75 H 93 L 11/25/20 01:15 36.8 C 69 17 137/54 L 93 L 11/25/20 01:06 66 16 130/55 L 97 11/24/20 23:48 70 16 117/53 L 95 11/24/20 20:26 36.3 C 79 18 120/78 98 - Problem List (1) Bowel obstruction SNOMED Code(s): 21118861 ICD Code: K56.609 - UNSP INTESTNL OBST, UNSP TO PARTIAL VERSUS COMPLETE OBST Status: Acute Current Visit: Yes Problem List Initiated/Reviewed/Updated: Yes Orders Last 24hrs: Active Orders 24 hr Category Date Time Status Admission Status [Patient Status] [ADT] Stat ADT 11/24/20 23:47 Active EKG Documentation Completion [RC] STAT Care 11/24/20 20:35 Active NPO [Nothing Per Oral Diet] [DIET] Diet 11/25/20 Breakfast Active Acetaminophen [Ofirmev 1000 mg/100 ml] 1,000 mg Med 11/25/20 01:21 Active Premix Bag 1 bag IV Q6H HYDROmorphone [Dilaudid] Med 11/25/20 01:20 Active 0.5 mg IVPUSH Q4H PRN Ketorolac [Toradol] Med 11/25/20 01:21 Active 30 mg IVPUSH Q6H PRN Lactated Ringers [Ringers, Lactated] 1,000 ml Med 11/24/20 20:45 Active IV ASDIRECTED Lactated Ringers [Ringers, Lactated] 1,000 ml Med 11/25/20 01:30 Active IV ASDIRECTED Ondansetron [Zofran] Med 11/25/20 01:18 Active 4 mg IVPUSH Q6H PRN Promethazine [Phenergan] Med 11/25/20 01:19 Active 25 mg IM Q6H PRN Remove Patch Med 11/25/20 09:00 Active 1 ea TRDERM Q24H Scopolamine [Transderm-Scop] Med 11/25/20 01:19 Active 1.5 mg TRDERM Q72H PRN Medication Orders Hydromorphone HCl (Hydromorphone 1 Mg/Ml Syringe) 0.5 mg IVPUSH Q4H PRN PRN Reason: severe pain Lactated Ringer's (Ringers, Lactated) 1,000 mls @ 999 mls/hr IV ASDIRECTED [facility] Last Admin: 11/24/20 20:39 Dose: 999 mls/hr Documented by: EVAN Lactated Ringer's (Ringers, Lactated) 1,000 mls @ 125 mls/hr IV ASDIRECTED [facility] Last Admin: 11/25/20 01:30 Dose: 125 mls/hr Documented by: MELITON Acetaminophen 1,000 mg/ Premix 100 mls @ 400 mls/hr IV Q6H PRN PRN Reason: Pain Ketorolac Tromethamine (Ketorolac 30 Mg/Ml Sdv) 30 mg IVPUSH Q6H PRN PRN Reason: Pain Miscellaneous Information (Remove Patch) 1 ea TRDERM Q24H EARL Ondansetron HCl (Ondansetron 4 Mg/2 Ml Sdv) 4 mg IVPUSH Q6H PRN PRN Reason: Nausea Promethazine HCl (Promethazine 25 Mg/Ml Sdv) 25 mg IM Q6H PRN PRN Reason: Nausea Scopolamine (Scopolamine 1.5 Mg Transdermal Patch) 1.5 mg TRDERM Q72H PRN PRN Reason: Nausea Assessment/Plan Comment:: The patient was made nothing by mouth, given IV fluids, and given a range of antinausea medications to use as needed. She slept well through the night with no abdominal pain or vomiting. this morning upon wakening the patient felt nauseous and was given Zofran. She had some abdominal discomfort and was given IV Dilaudid again which controlled her pain. I will be signing the patient out to Dr. Issac Abdi for further management. Will order a Gastrografin study of the small bowel. I will have the patient attempt to drink Gastrografin. If she can tolerate this, we'll get an abdominal x-ray before the Gastrografin administration, 30 minutes to 60 minutes after administration, 8 hours after administration and again tomorrow morning. This will help us see if this is a complete mechanical obstruction that may require surgery versus an ileus or partial small bowel obstruction. If she cannot tolerate oral Gastrografin, she may need an NG tube to decompress the stomach and to administer the Gastrografin. I splinted the patient that should she start vomiting or have worsening nausea throughout the day she may need an NG tube for stomach decompression
[2020-11-25] MEDS: Ondansetron 4 MG/2 ML SDV IVPUSH PRN ×2 (07:24→15:25)
[2020-11-25] MEDS: HYDROmorphone 1 MG/ML Syringe IVPUSH PRN ×3 (07:35→16:17)
--- NOTE | 2020-11-25 07:47 | EDM.PDOC ---
ED HPI GENERAL MEDICAL PROBLEM - General Chief Complaint: Abdominal Pain Time Seen by Provider: 11/24/20 20:23 - History of Present Illness INITIAL COMMENTS - FREE TEXT/NARRATIVE: CHIEF COMPLAINT(S): Vomiting HISTORY OF PRESENT ILLNESS: This is a 55-year-old woman with a past medical history of prior breast cancer who is in remission, C. difficile colitis, and recent exploratory laparotomy secondary to which she describes as a intestinal perforation with resultant small bowel obstruction on November 17 with placement of drains who comes to the emergency department with a chief complaint of vomiting. The patient states that for the last 2 days she has been experiencing week, nauseous and has been having vomiting. She denies any fevers, chills, abdominal pain, diarrhea, constipation, chest pain, shortness of breath. She states that she is concerned because she is continuing to vomit. She states that she had one of the drains removed today and she was telling them that she was feeling not well and then she came home and continued to vomit so she came to the emergency department. She denies any other symptoms. REVIEW OF SYSTEMS: Constitutional: Denies fever, chills. Eyes: Denies eye pain Ears, Nose, Mouth, & Throat: Denies earache Cardiovascular: Denies chest pain Respiratory: Denies shortness of breath Gastrointestinal positive for nausea. Vomiting. Denies diarrhea, abdominal pain, hematochezia, constipation, melena 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: Denies hematuria Skin:Denies a rash MSK: Denies joint pain Neurological: Denies blurred vision Psychiatric: Denies depression PAST MEDICAL HISTORY: As per history of present illness and as reviewed below otherwise noncontributory. SURGICAL HISTORY: As per history of present illness and as reviewed below otherwise noncontributory. SOCIAL HISTORY: As per history of present illness and as reviewed below otherwise noncontributory. FAMILY HISTORY: As per history of present illness and as reviewed below otherwise noncontributory. EXAMINATION OF ORGAN SYSTEMS/BODY AREAS: Constitutional: Blood pressure 120/78, heart rate 79, respiratory rate 18 with an oxygen saturation of 98% on room air. Temperature 36.3 General: Middle-aged woman who does not appear to be in acute distress Psychiatric: Appropriate mood and affect. Eyes: No scleral icterus or conjunctival erythema ENMT: Mildly dry mucous membranes. No pharyngeal erythema. Cardiovascular: Regular, rate, and rhythm. No gallops, murmurs, or rubs. Bilateral upper extremity pulses symmetric and intact. No peripheral edema. No JVD. Respiratory: Lungs clear to auscultation bilaterally. No wheezes, rales, or rhonchi. Gastrointestinal: Soft, non-tender, non-distended. Normoactive bowel sounds there is a midline surgical incision which appears to be clean, dry, intact. No surrounding erythema. There is also a port area on the left without any drainage. 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: No suprapubic tenderness Musculoskeletal: Normal range of motion. Skin: No lesions or abrasions. Neurological: Alert, GCS 15 MEDICAL DECISION MAKING AND COURSE IN THE ED WITH INTERPRETATION/REVIEW OF DIAGNOSTIC STUDIES: This is a 55-year-old woman with a past medical history of prior breast cancer who is in remission, C. difficile colitis, and recent exploratory laparotomy secondary to which she describes as a intestinal perforation with resultant small bowel obstruction on November 17 with placement of drains who presents to the emergency department with persistent nausea and vomiting. At this time given the recent surgery I do suspect postsurgical complication versus small bowel obstruction. Her vitals are normal therefore we will reevaluate. Will obtain CBC, CMP, troponin, Covid. Will obtain a CT abdomen pelvis with IV contrast. We will provide the patient with 1 L of lactated Ringer's bolus, and 4 mg of Zofran. EKG was obtained which did not reveal any acute signs of ischemia. Laboratory: CBC is unremarkable. CMP reveals hyperglycemia at 112 otherwise unremarkable. Troponin is negative. Covid is negative. The radiological images were viewed by myself along with reading the report from the radiologist. CT abdomen pelvis with IV contrast reveals fluid-filled nondilated small bowel loops with transition point likely in the right upper quadrant. Findings are suspicious for mechanical small bowel obstruction versus adynamic ileus. After imaging I did discuss the results with the patient. I did discuss her I like to speak to her surgeons who had completed the surgery and get further recommendations and possible transfer. She was amenable to this plan. I contacted [facility] in [place] and spoke with Dr. Mendez who stated that this can be expected postsurgically and recommended observation admission if our general surgeon was comfortable with that. Otherwise he was willing to accept the patient for observation. I contacted Dr. Lucio who accepted the patient for observation admission. DISPOSITION: Patient is admitted to the hospital in observation CONDITION: Fair PROCEDURES: None FINAL IMPRESSION(S)/DIAGNOSES: 1. Acute vomiting likely secondary to small bowel obstruction Cal Coronado M.D. abd Pain Score (Numeric/FACES): 10 - Related Data Allergies Allergy/AdvReac Type Severity Reaction Status Date / Time oxycodone Allergy Mild Rash Verified 11/25/20 01:24 hydrocodone Allergy Itching Verified 11/25/20 01:24 Home Meds: Home Meds buPROPion HCL [Wellbutrin Xl] 0 mg PO QAM 08/18/18 [History] Desvenlafaxine Succinate [Desvenlafaxine Succinate ER] 100 mg PO DAILY 11/24/20 [History] Methylphenidate [Ritalin] 5 mg PO DAILY 11/24/20 [History] Oxybutynin 5 mg PO DAILY 11/24/20 [History] Past Medical History HEENT History: Reports: Allergic Rhinitis, Impaired Vision Other HEENT History: wears glasses Cardiovascular History: Reports: None Respiratory History: Reports: None, Other (See Below) Gastrointestinal History: Reports: None 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: Reports: None 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: Musculoskeletal History: Reports: Fracture Other Musculoskeletal History: hx of fx right foot and ankle Neurological History: Reports: None Psychiatric History: Reports: Depression Endocrine/Metabolic History: Reports: None Hematologic History: Reports: None Immunologic History: Reports: None Oncologic (Cancer) History: Reports: Breast, Malignant Melanoma Other Oncologic History: on face, no treatment after removal Dermatologic History: Reports: None - Infectious Disease History Infectious Disease History: Reports: None - Past Surgical History Head Surgeries/Procedures: Reports: None HEENT Surgical History: Reports: None Cardiovascular Surgical History: Reports: None Respiratory Surgical History: Reports: None GI Surgical History: Reports: Hernia, Abdominal Other GI Surgeries/Procedures: hernia repair x2 Female Surgical History: Reports: Breast Biopsy, Other (See Below) Other Female Surgeries/Procedures: right lumpectomy and lymphadectomy Endocrine Surgical History: Reports: None Neurological Surgical History: Reports: Other (See Below) Other Neurological Surgeries/Procedures: spinale surgery Musculoskeletal Surgical History: Reports: ORIF, Other (See Below) Other Musculoskeletal Surgeries/Procedures:: ORIF right ankle with hardware removal , hx of bone graft to wrist Oncologic Surgical History: Reports: Biopsy of Breast, Lumpectomy Dermatological Surgical History: Reports: None Social & Family History - Family History Family Medical History: No Pertinent Family History Cardiac: Reports: None - Tobacco Use Tobacco Use Status *Q: Current Some Day Tobacco User Years of Tobacco use: 40 Packs/Tins Daily: 0.5 - Caffeine Use Caffeine Use: Reports: Coffee Other Caffeine Use: 3 cups per day Caffeine Use Comment: couple cups a day - Recreational Drug Use Recreational Drug Use: No ED ROS GENERAL - Review of Systems Review Of Systems: See Below ED EXAM, GENERAL - Physical Exam Exam: See Below Course - Vital Signs Last Recorded V/S: Last Vital Signs Temp 37.2 C 11/25/20 04:00 Pulse 73 11/25/20 04:00 Resp 18 11/25/20 04:00 BP 155/75 H 11/25/20 04:00 Pulse Ox 93 L 11/25/20 04:00 - Orders/Labs/Meds Orders: Active Orders 24 hr Category Date Time Status EKG Documentation Completion [RC] STAT Care 11/24/20 20:35 Active Lactated Ringers [Ringers, Lactated] 1,000 ml Med 11/24/20 20:45 Active IV ASDIRECTED Medication Orders Hydromorphone HCl (Hydromorphone 1 Mg/Ml Syringe) 0.5 mg IVPUSH Q4H PRN PRN Reason: severe pain Last Admin: 11/25/20 07:35 Dose: 0.5 mg Documented by: ANTONIO Lactated Ringer's (Ringers, Lactated) 1,000 mls @ 999 mls/hr IV ASDIRECTED [facility] Last Admin: 11/24/20 20:39 Dose: 999 mls/hr Documented by: EVAN Lactated Ringer's (Ringers, Lactated) 1,000 mls @ 125 mls/hr IV ASDIRECTED [facility] Last Admin: 11/25/20 01:30 Dose: 125 mls/hr Documented by: MENDMAR Acetaminophen 1,000 mg/ Premix 100 mls @ 400 mls/hr IV Q6H PRN PRN Reason: Pain Ketorolac Tromethamine (Ketorolac 30 Mg/Ml Sdv) 30 mg IVPUSH Q6H PRN PRN Reason: Pain Miscellaneous Information (Remove Patch) 1 ea TRDERM Q24H [facility] Ondansetron HCl (Ondansetron 4 Mg/2 Ml Sdv) 4 mg IVPUSH Q6H PRN PRN Reason: Nausea Last Admin: 11/25/20 07:24 Dose: 4 mg Documented by: MELITON Promethazine HCl (Promethazine 25 Mg/Ml Sdv) 25 mg IM Q6H PRN PRN Reason: Nausea Scopolamine (Scopolamine 1.5 Mg Transdermal Patch) 1.5 mg TRDERM Q72H PRN PRN Reason: Nausea Labs: Laboratory Tests 11/24/20 11/24/20 11/24/20 Range/Units 20:52 20:52 20:52 WBC 7.49 (4.0-11.0) K/uL RBC 4.81 (4.30-5.90) M/uL Hgb 14.1 (12.0-16.0) g/dL Hct 42.7 (36.0-46.0) % MCV 88.8 (80.0-98.0) fL MCH 29.3 (27.0-32.0) pg MCHC 33.0 (31.0-37.0) g/dL RDW Std Deviation 44.8 (28.0-62.0) fl RDW Coeff of Breanna 14 (11.0-15.0) % Plt Count 380 (150-400) K/uL MPV 9.00 (7.40-12.00) fL Neut % (Auto) 83.0 H (48.0-80.0) % Lymph % (Auto) 8.0 L (16.0-40.0) % [place] % (Auto) 6.4 (0.0-15.0) % Eos % (Auto) 2.1 (0.0-7.0) % Baso % (Auto) 0.5 (0.0-1.5) % Neut # (Auto) 6.2 H (1.4-5.7) K/uL Lymph # (Auto) 0.6 (0.6-2.4) K/uL [place] # (Auto) 0.5 (0.0-0.8) K/uL Eos # (Auto) 0.2 (0.0-0.7) K/uL Baso # (Auto) 0.0 (0.0-0.1) K/uL Nucleated RBC % 0.0 /100WBC Nucleated RBCs # 0 K/uL Sodium 141 (136-145) mmol/L Potassium 3.9 (3.5-5.1) mmol/L Chloride 103 (98-107) mmol/L Carbon Dioxide 28.6 (21.0-32.0) mmol/L BUN 10 (7.0-18.0) mg/dL Creatinine 0.9 (0.6-1.0) mg/dL Est Cr Clr Drug Dosing 55.20 mL/min Estimated GFR (MDRD) > 60.0 ml/min Glucose 112 H (74-106) mg/dL Lactic Acid 0.9 (0.4-2.0) mmol/L Calcium 9.1 (8.5-10.1) mg/dL Total Bilirubin 0.3 (0.2-1.0) mg/dL AST 21 (15-37) IU/L ALT 33 (14-63) IU/L Alkaline Phosphatase 65 (46-116) U/L Troponin I < 0.050 (0.000-0.056) ng/mL Total Protein 7.2 (6.4-8.2) g/dL Albumin 3.6 (3.4-5.0) g/dL Globulin 3.6 (2.6-4.0) g/dL Albumin/Globulin Ratio 1.0 (0.9-1.6) Meds: Medications Generic Name Dose Route Start Last Admin Trade Name Freq PRN Reason Stop Dose Admin Hydromorphone HCl 0.5 mg 11/25/20 01:20 11/25/20 07:35 Hydromorphone 1 Mg/Ml Syringe IVPUSH 0.5 mg Q4H PRN Administration severe pain Lactated Ringer's 1,000 mls @ 999 mls/hr 11/24/20 20:45 11/24/20 20:39 Ringers, Lactated IV 999 mls/hr ASDIRECTED EARL Administration Lactated Ringer's 1,000 mls @ 125 mls/hr 11/25/20 01:30 11/25/20 01:30 Ringers, Lactated IV 125 mls/hr ASDIRECTED EARL Administration Acetaminophen 1,000 mg/ Premix 100 mls @ 400 mls/hr 11/25/20 01:21 IV Q6H PRN Pain Ketorolac Tromethamine 30 mg 11/25/20 01:21 Ketorolac 30 Mg/Ml Sdv IVPUSH Q6H PRN Pain Miscellaneous Information 1 ea 11/25/20 09:00 Remove Patch TRDERM Q24H EARL Ondansetron HCl 4 mg 11/25/20 01:18 11/25/20 07:24 Ondansetron 4 Mg/2 Ml Sdv IVPUSH 4 mg Q6H PRN Administration Nausea Promethazine HCl 25 mg 11/25/20 01:19 Promethazine 25 Mg/Ml Sdv IM Q6H PRN Nausea Scopolamine 1.5 mg 11/25/20 01:19 Scopolamine 1.5 Mg Transdermal Patch TRDERM Q72H PRN Nausea Discontinued Medications Generic Name Dose Route Start Last Admin Trade Name Freq PRN Reason Stop Dose Admin Iopamidol 100 ml 11/24/20 21:37 11/24/20 22:31 Iopamidol 755 Mg/Ml 100 Ml Bottle IVPUSH 11/24/20 21:38 100 ml ONETIME ONE Administration Ondansetron HCl 4 mg 11/24/20 23:58 11/25/20 00:07 Ondansetron 4 Mg/2 Ml Sdv IVPUSH 11/24/20 23:59 4 mg ONETIME ONE Administration Departure - Departure Time of Disposition: 23:47 Disposition: Refer to Observation Condition: Fair Clinical Impression: Bowel obstruction - Discharge Information Sepsis Event Note (ED) - Evaluation Sepsis Screening Result: No Definite Risk - Focused Exam Vital Signs: Vital Signs Temp Pulse Resp BP Pulse Ox 11/24/20 20:26 36.3 C 79 18 120/78 98 - My Orders Last 24 Hours: My Active Orders 11/24/20 20:35 EKG Documentation Completion [RC] STAT 11/24/20 20:45 Lactated Ringers [Ringers, Lactated] 1,000 ml IV ASDIRECTED - Assessment/Plan Last 24 Hours: My Active Orders 11/24/20 20:35 EKG Documentation Completion [RC] STAT 11/24/20 20:45 Lactated Ringers [Ringers, Lactated] 1,000 ml IV ASDIRECTED
[2020-11-25] MEDS: Ketorolac 30 MG/ML SDV IVPUSH PRN ×2 (09:43→20:29)
--- NOTE | 2020-11-25 10:33 | CR ---
Indication: Surveillance Investigator image prior to Gastrografin study. Technique: Two images of the abdomen were acquired. Comparison: The fisher lobster images of a CT dated November 24, 2020 Findings: Dilated loops of mid abdominal small bowel. Basilar atelectasis. Port ending in the SVC. I was not involved in performing or interpreting the Gastrografin study which was apparently performed after this scalp film examination. Impression: Dilated loops of mid abdominal small bowel Dictated by Ankit Magallanes MD @ 11/25/2020 10:31:[address] Ankit Magallanes @ Nov 25 2020 10:31AM
--- NOTE | 2020-11-25 18:09 | CR ---
INDICATION: NG tube placement. TECHNIQUE: Chest 1 view. COMPARISON: Chest radiograph 03/01/2019. FINDINGS: New patchy and linear opacities in the left costophrenic angle may represent atelectasis or infiltrate. Mild right basilar atelectasis. No pleural effusion or pneumothorax. Heart size upper limits of normal. Normal pulmonary vascularity. Left chest Port-A-Cath with tip in the low SVC. Enteric tube with tip in the stomach. Cervical spine hardware. Old left posterior rib fractures. IMPRESSION: 1. Enteric tube with tip in the stomach. 2. New patchy and linear opacities in the left costophrenic angle may represent atelectasis or infiltrate. Dictated by Ginger Robbins MD @ 11/25/2020 6:08:[address] Ginger Robbins @ Nov 25 2020 6:08PM
--- NOTE | 2020-11-25 22:25 | CR ---
For Patients: As a result of the Century Cures Act, medical imaging exams and procedure reports are released immediately into your electronic medical record. You may view this report before your referring provider. If you have questions, please contact your health care provider. INDICATION: Small bowel obstruction. COMPARISON: 10:25 a.m. 11/25/2020 abdominal radiograph. FINDINGS/IMPRESSION: There is an unchanged bowel-gas pattern showing gaseous distention of small bowel loops throughout the mid abdomen suggesting small bowel obstruction. There has been interval placement of a nasogastric tube extending into the stomach. The stomach, previously moderately distended with faintly visible contrast, is now decompressed, with very little residual contrast within the gastric fundus. This may reflect interval suctioning of the stomach. Alternatively, the contrast may have passed out of the stomach into the bowel. Bowel opacification, however, is insufficient to determine the level of obstruction. Dictated by Zak Ny MD @ 11/25/2020 10:23:06 PM Dictated by: Zak Ny MD @ 11/25/2020 22:23:34 (Electronically Signed)
[2020-11-26] MEDS: Lactated Ringers 1,000 ML IV SCH ×2 (01:47→09:00)
[2020-11-26] MEDS: Ketorolac 30 MG/ML SDV IVPUSH PRN ×2 (02:21→08:37)
--- NOTE | 2020-11-26 08:42 | CR ---
INDICATION: Obstruction. COMPARISON: Abdominal x-rays dated 25 November 2020. FINDINGS: Two portable views of the abdomen show a few dilated loops of small bowel in the mid abdomen which are slightly improved. No evidence of free intraperitoneal air. Enteric tube in the stomach. Degenerative changes of the spine. IMPRESSION: 1. A few dilated loops of small bowel in the mid abdomen are slightly improved. Dictated by Calvin Doyle MD @ 11/26/2020 8:41:[address] Calvin Doyle @ Nov 26 2020 8:41AM
[2020-11-26 09:57] VITALS: PULSE 86
[2020-11-26 10:17] VITALS: BP 152/74
--- NOTE | 2020-11-26 11:28 | PN ---
SUBJECTIVE: The patient is a pleasant 55-year-old female who was admitted yesterday for observation for ileus versus small bowel obstruction. The patient was admitted for observation by Dr. Lucio, who has left and signed out to myself. The patient did have a surgery at [facility], about a week and a half ago. The patient says since the surgery, she has not been feeling well with nausea and vomiting. She said her last bowel movement was last week. She was seen as a postop visit for drain removal. The surgery had was a recurrent hernia repair. After her postop visit, she did come to [place] for ER, where CT scan was done that showed a partial bowel obstruction versus an ileus. Dr. Mendez, surgeon in [place] was contacted, who said this could be expected postsurgical, to admit for observation to see if the ileus resolves versus if it does not, transferring to [place]. Yesterday, the patient did get oral contrast to see if it will make it to the colon. We were unable to use small-bowel follow-through because we do not have Radiology. She did become nauseous and an NG was placed. She did vomit and an NG placed. She has so far had about a total of 1.5 L out. The patient is with NG placement. She is feeling much better. She has less abdominal pain. She says she gets occasional cramping here and there. She denies any flatus. Abdominal x-ray today got removed with NG suction. The patient says overall, she is feeling again better today with the decompression. No flatus. OBJECTIVE: GENERAL: The patient is lying comfortably in her hospital bed. She is alert. No acute distress. VITAL SIGNS: Temperature is 97.6, pulse is 77, blood pressure is 147/66. LUNGS: Clear to auscultation bilaterally, not clearly heard. HEART: Regular rhythm. No murmur appreciated. ABDOMEN: Soft and mildly distended. She does have vague tenderness to palpation, more in the right upper abdomen. No guarding. No rebound. No bowel sounds heard. ASSESSMENT AND PLAN: The patient is a pleasant 55-year-old female with likely a partial small bowel obstruction with recent recurrent ventral hernia repair. This does not seem to be resolving. I did discuss with the patient that this might require further surgery. NG decompression is not working. I did call [place] back and spoke with Dr. Hale to accept the patient in transfer for evaluation the patient. There is a chance that the NG decompression might resolve. However, she has been feeling bad for over a week. All the patient's questions were answered. The patient will be transferred to [place] for further cares. MARCOS / JESUS /[id number]
--- NOTE | 2020-11-29 13:58 | CR ---
EXAM DATE: 11/24/20 PATIENT'S AGE: 55 Patient: SANCHEZ MAZARIEGOS Facility: [facility] Site . Site : [id number] Study: [id number]/2/2021 1:27:09 PM Ordering Physician: JANKI RONQUILLO Final Report: INDICATION: 30 MIN POST GASTROGRAFIN. First two images were done at 1025 post 30 min, made a new/stronger solution of gastrografin to appear on images, third image is most recent one done at 1300. COMPARISON: Abdominal radiograph 11/25/2020 at 10:03 a.m. TECHNIQUE: Abdomen, 3 views. FINDINGS: Again seen are multiple dilated loops of small bowel in the right abdomen worrisome for obstruction. No significant amount of formed stool is seen. No pneumatosis. On the 3rd image, there is enteric contrast within the stomach. No contrast identified within the small bowel. The lung bases are clear. The bones are unremarkable. IMPRESSION: 1. Multiple dilated loops of small bowel in the right abdomen worrisome for obstruction. 2. Contrast within the stomach on the 3rd image. No contrast identified within the small bowel. Dictated by Ginger Robbins MD @ 11/29/2020 1:01:46 PM Signed by: Ginger Robbins MD @11/29/2020 1:01:46 PM (Electronic Signature) Report Signed by Proxy. [facility] CENTERAshley
== END 2020-11-26 10:56 ==
LOC: MW.ED 20:07 → MW.MS 23:47
PROVIDERS: ADMIT Surgery; ATTEND Surgery
DX: K56.609 Unspecified intestinal obstruction, unspecified as to partial versus complete obstruction (principal); J44.9 Chronic obstructive pulmonary disease, unspecified; Z85.3 Personal history of malignant neoplasm of breast; Z88.5 Allergy status to narcotic agent; Z79.899 Other long term (current) drug therapy; Z98.890 Other specified postprocedural states; F17.210 Nicotine dependence, cigarettes, uncomplicated; Z20.822 Contact with and (suspected) exposure to COVID-19
CPT/HCPCS: 36415; 43752; 71045; 74018; 74177; 80048; 80053; 83605; 84484; 85025; 87635; 93005; 96374; 99285; J1170; J1885; J2405; J2550; J7120; Q9967; 93010; 96372; 96375; 96376; 99284; G0378; U0002

== ENCOUNTER 2021-06-10 17:06 | Emergency (ER) | payer BC, OTHER ==
[2021-06-10] MEDS ORDERED: Ketorolac 30 MG/ML SDV IVPUSH ONE (17:52)
[2021-06-10] MEDS ORDERED: Sodium Chloride 0.9% 1,000 ML IV ONE (17:52)
[2021-06-10] MEDS ORDERED: Sodium Chloride 0.9% 10 ML Syringe FLUSH PRN (17:52)
[2021-06-10] MEDS ORDERED: Ondansetron 4 MG/2 ML SDV IVPUSH ONE ×2 (17:52→22:24)
[2021-06-10] MEDS ORDERED: Sodium Chloride 0.9% 2.5 ML Syringe FLUSH PRN (17:52)
[2021-06-10 19:03] LABS: BLOOD UREA NITROGEN,BUN 16 mg/dL (7.0-18.0); CHLORIDE,CL 97 mmol/L (98-107); GLUCOSE RANDOM 112 mg/dL (74-106); POTASSIUM,K 4.1 mmol/L (3.5-5.1); SODIUM,NA 134 mmol/L (136-145)
[2021-06-10] MEDS ORDERED: Iopamidol 755 MG/ML 500 ML Multipack Bottle IVPUSH ONE (19:08)
[2021-06-10 19:39] LABS: CORONAVIRUS COVID-19 NAA NEGATIVE (NEGATIVE); INFLUENZA A NAA NEGATIVE (NEGATIVE); INFLUENZA B NAA NEGATIVE (NEGATIVE)
[2021-06-10] MEDS ORDERED: HYDROmorphone 1 MG/ML Syringe IVPUSH ONE (22:23)
[2021-06-10] MEDS ORDERED: Pantoprazole 40 MG Vial ONE (22:42)
[2021-06-11 00:10] VITALS: BP 144/61; PULSE 84
== END 2021-06-11 00:14 ==
LOC: MW.ED 17:06
DX: K56.609 Unspecified intestinal obstruction, unspecified as to partial versus complete obstruction (principal); Z88.5 Allergy status to narcotic agent; Z20.822 Contact with and (suspected) exposure to COVID-19
CPT/HCPCS: 0240U; 36415; 74177; 80053; 83735; 85025; 85610; 96374; 96375; 96376; 99285; C9113; J1170; J1885; J2405; J7030; Q9967

== ENCOUNTER 2021-06-22 13:58 | Emergency (ER) | payer BC ==
[2021-06-22] MEDS ORDERED: Morphine 4 MG/ML VIAL IVPUSH ONE ×2 (14:23→15:33)
[2021-06-22] MEDS ORDERED: Ondansetron 4 MG/2 ML SDV IVPUSH ONE (14:23)
[2021-06-22] MEDS ORDERED: Sodium Chloride 0.9% 2.5 ML Syringe FLUSH PRN (14:23)
[2021-06-22] MEDS ORDERED: Sodium Chloride 0.9% 10 ML Syringe FLUSH PRN (14:23)
[2021-06-22 15:32] LABS: BLOOD UREA NITROGEN,BUN 16 mg/dL (7.0-18.0); CARBON DIOXIDE,CO2 27.7 mmol/L (21.0-32.0); CHLORIDE,CL 99 mmol/L (98-107); GLUCOSE RANDOM 105 mg/dL (74-106); LIPASE 43 U/L (73-393); POTASSIUM,K 3.9 mmol/L (3.5-5.1); SODIUM,NA 138 mmol/L (136-145)
[2021-06-22] MEDS ORDERED: HYDROmorphone 1 MG/ML Syringe IVPUSH ONE ×2 (16:05→18:44)
[2021-06-22] MEDS ORDERED: Iopamidol 755 MG/ML 500 ML Multipack Bottle IVPUSH STA (16:54)
[2021-06-22] MEDS ORDERED: Midazolam 1 MG/ML 2 ML SDV IVPUSH ONE (17:42)
[2021-06-22] MEDS ORDERED: Benzocaine 20% Topical Spray UD MUCMEM ONE (17:42)
[2021-06-22 20:04] VITALS: BP 128/98; PULSE 76
== END 2021-06-22 20:06 ==
LOC: MW.ED 13:58
DX: K56.609 Unspecified intestinal obstruction, unspecified as to partial versus complete obstruction (principal); Z88.5 Allergy status to narcotic agent; Z72.0 Tobacco use; Z20.822 Contact with and (suspected) exposure to COVID-19
CPT/HCPCS: 36415; 71045; 74177; 80053; 83605; 83690; 85025; 87635; 96374; 96375; 96376; 99285; A9270; J1170; J2250; J2270; J2405; Q9967; U0002

== ENCOUNTER 2021-12-15 05:17 | Emergency (ER) | payer BC ==
[2021-12-15 06:14] VITALS: BP 121/67; PULSE 86
== END 2021-12-15 06:09 | disposition home or self-care (01) ==
LOC: MW.ED 05:17
DX: S30.1XXA Contusion of abdominal wall, initial encounter (principal); Z88.5 Allergy status to narcotic agent; Z79.899 Other long term (current) drug therapy; X50.0XXA Overexertion from strenuous movement or load, initial encounter
CPT/HCPCS: 99283

== ENCOUNTER 2022-11-04 12:27 | Observation (INO) | payer BC ==
[2022-11-04] MEDS ORDERED: Acetaminophen 325 MG Tab PO ONE (14:07)
[2022-11-04] MEDS ORDERED: Ketorolac 30 MG/ML SDV IVPUSH ONE (14:07)
[2022-11-04] MEDS ORDERED: Dexamethasone 10 MG/ML SDV PO ONE (14:10)
[2022-11-04] MEDS ORDERED: Lactated Ringers 1,000 ML IV SCH (14:15)
[2022-11-04 14:32] LABS: BASOPHILS PERCENT AUTO 0.2 % (0.0-1.5); EOSINOPHILS ABSOLUTE AUTO 0.2 K/uL (0.0-0.7); EOSINOPHILS PERCENT AUTO 0.9 % (0.0-7.0); HEMATOCRIT 36.9 % (36.0-46.0); HEMOGLOBIN 12.4 g/dL (12.0-16.0); LYMPHOCYTES PERCENT AUTO 5.3 % (16.0-40.0); MEAN CORPUSCULAR HGB CONC 33.6 g/dL (31.0-37.0); MEAN CORPUSCULAR VOLUME 86.2 fL (80.0-98.0); MONOCYTES ABSOLUTE AUTO 0.9 K/uL (0.0-0.8); NEUTROPHILS ABSOLUTE AUTO 15.9 K/uL (1.4-5.7); NEUTROPHILS PERCENT AUTO 88.6 % (48.0-80.0); NRBC ABSOLUTE 0 K/uL; PLATELET COUNT,PLT 245 K/uL (150-400); RED BLOOD CELL COUNT 4.28 M/uL (4.30-5.90); WHITE BLOOD CELL COUNT,WBC 17.95 K/uL (4.0-11.0)
[2022-11-04 14:33] VITALS: BP 172/76
[2022-11-04 14:54] LABS: A/G RATIO 0.8 (0.9-1.6); ALBUMIN 3.2 g/dL (3.4-5.0); BILIRUBIN TOTAL 0.3 mg/dL (0.2-1.0); CALCIUM 9.3 mg/dL (8.5-10.1); CARBON DIOXIDE,CO2 25.3 mmol/L (21.0-32.0); CREATININE 0.9 mg/dL (0.6-1.0); EST CRCL DRUG DOSING (CG) 53.89 mL/min; POTASSIUM,K 3.9 mmol/L (3.5-5.1); PROTEIN TOTAL,TP 7.2 g/dL (6.4-8.2)
[2022-11-04] MEDS ORDERED: cefTRIAXone 1 GM in Sodium Chloride 0.9% 50 ML IV ONE (15:41)
[2022-11-04] MEDS ORDERED: Sodium Chloride 0.9% 1,000 ML IV SCH ×2 (15:45→17:45)
[2022-11-04] MEDS ORDERED: Azithromycin 500 MG in Sodium Chloride 0.9% 250 ML IV ONE (15:49)
[2022-11-04 16:03] LABS: APPEARANCE,URINE CLEAR; BILIRUBIN,URINE NEGATIVE (NEGATIVE); COLOR,URINE YELLOW; GLUCOSE,URINE NEGATIVE (NEGATIVE); KETONES,URINE NEGATIVE (NEGATIVE); LEUKOCYTE ESTERASE,URINE NEGATIVE (NEGATIVE); NITRITE,URINE NEGATIVE (NEGATIVE); OCCULT BLOOD,URINE NEGATIVE (NEGATIVE); PROTEIN,URINE NEGATIVE (NEGATIVE); UROBILINOGEN,URINE 0.2 EU/dL (<2.0)
[2022-11-04 16:28] VITALS: PULSE 91
[2022-11-04] MEDS ORDERED: Polyethylene Glycol 3350 Powder 17 GM Packet PO PRN (17:43)
[2022-11-04] MEDS ORDERED: oxyCODONE 5 MG Tab PO PRN (17:43)
[2022-11-04] MEDS ORDERED: Ondansetron 4 MG/2 ML SDV IVPUSH PRN (17:43)
[2022-11-04] MEDS ORDERED: Acetaminophen 325 MG Tab PO PRN (17:43)
[2022-11-04] MEDS ORDERED: Temazepam 15 MG Cap PO PRN (17:43)
[2022-11-04] MEDS ORDERED: Ondansetron 4 MG Tab.DIS PO PRN (17:43)
[2022-11-04] MEDS ORDERED: guaiFENesin/Dextromethorphan 100-10 MG/5 ML Soln 10 ML Cup PO PRN (17:53)
[2022-11-04] MEDS ORDERED: guaiFENesin 600 MG Tab.ER PO SCH (18:00)
[2022-11-04] MEDS ORDERED: Albuterol/Ipratropium 3.0-0.5 MG/3 ML Neb Soln NEB SCH (22:00)
[2022-11-05] MEDS ORDERED: Enoxaparin 40 MG/0.4 ML Syringe SUBCUT SCH (09:00)
[2022-11-05] MEDS ORDERED: buPROPion 150 MG Tab.ER PO SCH (09:00)
[2022-11-05] MEDS ORDERED: Pantoprazole 40 MG Tab.CR PO SCH (09:00)
[2022-11-05] MEDS ORDERED: DESVENLAFAXINE SUCCINATE 100 MG PO SCH (09:00)
[2022-11-05] MEDS ORDERED: Azithromycin 500 MG in Sodium Chloride 0.9% 250 ML IV SCH (11:00)
[2022-11-05] MEDS ORDERED: cefTRIAXone 1 GM Vial IM SCH (12:00)
== END 2022-11-04 18:30 | disposition left against medical advice (07) ==
LOC: MW.ED 12:27 → MW.MS 15:50
PROVIDERS: ADMIT Internal Medicine; ATTEND Internal Medicine
DX: J18.9 Pneumonia, unspecified organism (principal); I10 Essential (primary) hypertension; K44.9 Diaphragmatic hernia without obstruction or gangrene; F41.9 Anxiety disorder, unspecified; F32.A Depression, unspecified; F17.210 Nicotine dependence, cigarettes, uncomplicated; Z20.822 Contact with and (suspected) exposure to COVID-19; Z88.5 Allergy status to narcotic agent; Z79.899 Other long term (current) drug therapy; Z98.890 Other specified postprocedural states
CPT/HCPCS: 36415; 71046; 80053; 81003; 85025; 87040; 87635; 87651; A9270; G0378; J0456; J0696; J1885; J3490; J7030; J7050; J7120; J8540; 96361; 96365; 96368; 96375; 99234; 99284-25; U0002